=== PATIENT | male | born 1965 | race Caucasian/White ===

== ENCOUNTER 2022-09-08 12:35 | Inpatient (IN) | payer BC, OTHER ==
[2022-09-08] MEDS ORDERED: VANCOMYCIN IV PER PHARMACY 1 EACH MISC MISCELLANE PRN (13:17)
[2022-09-08] MEDS ORDERED: ACETAMINOPHEN TAB 325 MG TAB PO STA (13:17)
[2022-09-08] MEDS ORDERED: PIPERACILLIN-TAZOBACTAM 3.375 GM in SODIUM CHLORIDE 0.9% 100 ML IVPB STA (13:18)
--- NOTE | 2022-09-08 13:20 | ED ---
General Adult HPI - General Chief complaint: Skin/Abscess/Foreign Body Stated complaint: diabetic wounds Time Seen by Provider: 09/08/22 13:03 Source: patient, RN notes reviewed Mode of arrival: ambulatory Limitations: no limitations - History of Present Illness Initial comments: Patient is a pleasant 57-year-old male presenting to the emergency Department with foot ulcer. Onset was several days ago. Discomfort only with walking, none at this time at rest. 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 No fevers at home. Patient has noticed some redness streaking up from the ulcer in the right foot. - Related Data Allergies Allergy/AdvReac Type Severity Reaction Status Date / Time No Known Allergies Allergy Verified 09/08/22 12:50 Review of Systems ROS Statement: Those systems with pertinent positive or pertinent negative responses have been documented in the HPI. ROS Other: All systems not noted in ROS Statement are negative. Constitutional: Reports: as per HPI Eyes: Denies: eye pain ENT: Denies: ear pain Respiratory: Denies: cough Cardiovascular: Denies: chest pain Endocrine: Denies: fatigue Gastrointestinal: Denies: abdominal pain Genitourinary: Denies: urgency Past Medical History Past Medical History: Diabetes Mellitus, Hyperlipidemia, Hypertension History of Any Multi-Drug Resistant Organisms: MRSA Date of last positivie culture/infection: 04/25/2019 Past Surgical History: Tonsillectomy Additional Past Surgical History / Comment(s): BKA, Smoking Status: Never smoker Past Alcohol Use History: Occasional Past Drug Use History: None Reported General Exam Limitations: no limitations General appearance: alert, in no apparent distress Head exam: Present: normocephalic Eye exam: Present: normal appearance Neck exam: Present: normal inspection Respiratory exam: Present: normal lung sounds bilaterally Cardiovascular Exam: Present: tachycardia GI/Abdominal exam: Present: soft. Absent: tenderness Extremities exam: Present: other (Right plantar surface of the foot near the MCP with ulcer up to 4 x 5 cm with foul older and streaking up to the proximal foot. There is probable necrosis within the ulcer) Neurological exam: Present: alert Psychiatric exam: Present: normal affect, normal mood Skin exam: Present: erythema Course Vital Signs 09/08/22 12:45 Temperature 99 F Pulse Rate 104 H Respiratory 18 Rate Blood Pressure 129/74 O2 Sat by Pulse 98 Oximetry EKG Findings - EKG Results: EKG: interpreted by ERMD, sinus rhythm, normal axis, normal QRS, normal ST/T Medical Decision Making - Medical Decision Making Was pt. sent in by a medical professional or institution (, [facility], [facility], urgent care, hospital, or [facility]...) When possible be specific @ -Patient was sent from Dr. Jama office Did you speak to anyone other than the patient for history (EMS, parent, family, police, friend...)? What history was obtained from this source @ - is present and helps provide history including of previous ulcers and amputation Did you review nursing and triage notes (agree or disagree)? Why? @ -I reviewed and agree with nursing and triage notes Were old charts reviewed (outside hosp., previous admission, EMS record, old EKG, old radiological studies, urgent care reports/EKG's, [facility] records)? Report findings @ -No old charts were reviewed Differential Diagnosis (chest pain, altered mental status, abdominal pain women, abdominal pain men, vaginal bleeding, weakness, fever, dyspnea, syncope, headache, dizziness, GI bleed, back pain, seizure, CVA, palpatations, mental health)? @ -not applicable EKG interpreted by me (3pts min.). @ -As above X-rays interpreted by me (1pt min.). @ -Right foot x-ray shows no bony involvement. There is soft tissue change. CT interpreted by me (1pt min.). @ -None done U/S interpreted by me (1pt. min.). @ -None done What testing was considered but not performed or refused? (CT, X-rays, U/S, labs)? Why? @ -None What meds were considered but not given or refused? Why? @ -None Did you discuss the management of the patient with other professionals (professionals i.e. [facility] De La [facility], [facility], lab, RT, psych nurse, social work associate, fruit farmworker, teacher, industrial relations officer, case assembler)? Give summary @ -Case discussed with Dr. Coronel with [facility], who will admit covering Dr. Patel, who admits for Dr. Jama Was smoking cessation discussed for >3mins.? @ -No Was critical care preformed (if so, how long)? @ -No Were there social determinants of health that impacted care today? How? (Homelessness, low income, unemployed, alcoholism, drug addiction, transportation, low edu. Level, literacy, decrease access to med. care, [place] [facility], rehab)? @ -No Was there de-escalation of care discussed even if they declined (Discuss DNR or withdrawal of care, Hospice)? DNR status @ -No What co-morbidities impacted this encounter? (DM, HTN, Smoking, COPD, CAD, Cancer, CVA, ARF, Chemo, Hep., AIDS, mental health diagnosis, sleep apnea, morbid obesity)? @ -History of diabetes and previous ulcers and amputation Was patient admitted / discharged? Hospital course, mention meds given and route, prescriptions, significant lab abnormalities, going to OR and other pertinent info. @ -Patient will need to be admitted for IV antibiotics and consult with vascular and infectious disease. IV antibiotics have been started. Patient and family updated on plan. Undiagnosed new problem with uncertain prognosis? @ -No Drug Therapy requiring intensive monitoring for toxicity (Heparin, Nitro, Insulin, Cardizem)? @ -No Were any procedures done? @ -No Diagnosis/symptom? @ -Necrotic foot ulcer, diabetic Acute, or Chronic, or Acute on Chronic? @ -Acute Uncomplicated (without systemic symptoms) or Complicated (systemic symptoms)? @ -Complicated with localized cellulitis Side effects of treatment? @ -No Exacerbation, Progression, or Severe Exacerbation? @ -No Poses a threat to life or bodily function? How? (Chest pain, [place], [place], pneumonia, PE, COPD, DKA, ARF, appy, cholecystitis, CVA, Diverticulitis, Homicidal, Suicidal, threat to staff... and all critical care pts) @ -No Disposition Clinical Impression: Right foot ulcer, Cellulitis Disposition: ADMITTED IP TO THIS HOSP Condition: Serious Is patient prescribed a controlled substance at d/c from ED?: No Referrals: Adam Jama DO [Primary Care Provider] - 1-2 days Time of Disposition: 13:24
[2022-09-08] MEDS ORDERED: ACETAMINOPHEN TAB 325 MG TAB PO PRN (13:22)
[2022-09-08] MEDS ORDERED: NALOXONE 0.4 MG/ML 1 ML VIAL IV PRN (13:22)
--- NOTE | 2022-09-08 13:42 | XR ---
EXAMINATION TYPE: XR foot complete RT DATE OF EXAM: 09/08/2022 CLINICAL HISTORY: pain TECHNIQUE: Frontal, lateral and oblique images of the right foot are obtained. COMPARISON: None. FINDINGS: There is no acute fracture/dislocation evident. The joint spaces appear within normal ambrose its. The overlying soft tissue appears unremarkable. IMPRESSION: There is no acute fracture or dislocation. ICD 10 NO FRACTURE, INITIAL EVALUATION
[2022-09-08] MEDS ORDERED: VANCOMYCIN 2,250 MG in SODIUM CHLORIDE 0.9% 500 ML 500 ML IVPB ONE (14:00)
[2022-09-08] MEDS: SODIUM CHLORIDE 0.9% 1,000 ML IV SCH ×2 (14:06→22:24)
[2022-09-08 14:20] LABS: Basophils % (A) 0 %; Eosinophils # (A) 0.1 k/uL (0-0.7); Eosinophils % (A) 1 %; HCT 31.2 % (39.0-53.0); HGB 10.3 gm/dL (13.0-17.5); Lymphocytes # (A) 0.8 k/uL (1.0-4.8); Lymphocytes % (A) 8 %; MCH 29.6 pg (25.0-35.0); MCHC 33.1 g/dL (31.0-37.0); MCV 89.4 fL (80.0-100.0); Mean Platelet Volume 7.6; Monocytes # (A) 0.5 k/uL (0-1.0); Monocytes % (A) 5 %; Neutrophils # (A) 9.6 k/uL (1.3-7.7); Neutrophils % (A) 86 %; Platelet Count 293 k/uL (150-450); RBC 3.49 m/uL (4.30-5.90); RDW 13.7 % (11.5-15.5); WBC 11.1 k/uL (3.8-10.6)
[2022-09-08 14:29] LABS: Partial Thromboplastin Time 24.7 sec (22.0-30.0); Prothrombin Time 10.2 sec (9.0-12.0)
[2022-09-08 14:30] LABS: ALT 16 U/L (4-49); AST 21 U/L (17-59); African American GFR (CKD) >90 (>60 ml/min/1.73 sqM); Albumin 3.6 g/dL (3.5-5.0); Alkaline Phosphatase 89 U/L (38-126); Anion Gap 10 mmol/L; Blood Urea Nitrogen 14 mg/dL (9-20); Calcium 8.5 mg/dL (8.4-10.2); Carbon Dioxide 24 mmol/L (22-30); Chloride 103 mmol/L (98-107); Glucose 241 mg/dL (74-99); Non-African American GFR(CKD) 78 (>60 ml/min/1.73 sqM); Potassium 4.4 mmol/L (3.5-5.1); Sodium 137 mmol/L (137-145); Total Bilirubin 0.6 mg/dL (0.2-1.3); Total Protein 6.7 g/dL (6.3-8.2)
[2022-09-08] MEDS ORDERED: DEXTROSE 50% SYRINGE 50 ML IVP PRN ×2 (15:31)
--- NOTE | 2022-09-08 15:36 | P.HPIM ---
History of Present Illness H&P Date: 09/08/22 History of present illness; patient is a 57-year-old gentleman with past medical history significant for diabetes mellitus, hypertension presented to the ER because of right foot ulcer. Patient stated that she was all right one Z-Meir started noticing an ulcer on his right foot. Over the few days he started noticing foul-smelling discharge. There was no complain of fever or chills. No complaint of nausea and vomiting. Patient was complaining of pain in his right foot as well associated with redness going up his right foot. Patient has history of prior left BKA. Because of this right foot ulcer, Patient came to the ER. In the ER, patient was worked up, initial white count was 11.1, hemo globin 10.3, repeat blood count 93, sodium 137, potassium 4.4,. REVIEW OF SYSTEMS: CONSTITUTIONAL: No fever, no malaise, no fatigue. HEENT: No recent visual problems or hearing problems. Denied any sore throat. CARDIOVASCULAR: No chest pain, orthopnea, PND, no palpitations, no syncope. PULMONARY: No shortness of breath, no cough, no hemoptysis. GASTROINTESTINAL: No diarrhea, no nausea, no vomiting, no abdominal pain. NEUROLOGICAL: No headaches, no weakness, no numbness. HEMATOLOGICAL: Denies any bleeding or petechiae. GENITOURINARY: Denies any burning micturition, frequency, or urgency. MUSCULOSKELETAL/RHEUMATOLOGICAL: Denies any joint pain, swelling, or any muscle pain. ENDOCRINE: Denies any polyuria or polydipsia. The rest of the 14-point review of systems is negative. PHYSICAL EXAMINATION: GENERAL: The patient is alert and oriented x3, not in any acute distress. Well developed, well nourished. HEENT: Pupils are round and equally reacting to light. EOMI. No scleral icterus. No conjunctival pallor. Normocephalic, atraumatic. No pharyngeal erythema. No thyromegaly. CARDIOVASCULAR: S1 and S2 present. No murmurs, rubs, or gallops. PULMONARY: Chest is clear to auscultation, no wheezing or crackles. ABDOMEN: Soft, nontender, nondistended, normoactive bowel sounds. No palpable organomegaly. MUSCULOSKELETAL: No joint swelling or deformity. EXTREMITIES: Left BKA and right foot ulcer seen NEUROLOGICAL: Gross neurological examination did not reveal any focal deficits. SKIN: No rashes. Assessment and plan Right foot diabetic ulcer Diabetes mellitus Hypertension Plan; Monitor vital signs monitor CBC Monitor CMP Follow-up on Blood cultures Continue wound care Continue IV Zosyn and vancomycin Consult ID Consult vascular surgery Resume home meds Past Medical History Past Medical History: Diabetes Mellitus, Hyperlipidemia, Hypertension History of Any Multi-Drug Resistant Organisms: MRSA Date of last positivie culture/infection: 04/25/2019 Past Surgical History: Tonsillectomy Additional Past Surgical History / Comment(s): BKA, Smoking Status: Never smoker Past Alcohol Use History: Occasional Past Drug Use History: None Reported Medications and Allergies Home Medications Medication Instructions Recorded Confirmed Type Atorvastatin [Lipitor] 10 mg PO DAILY 09/08/22 09/08/22 History Magnesium Oxide [Magnesium] 500 mg PO HS 09/08/22 09/08/22 History Pioglitazone [Actos] 15 mg PO DAILY 09/08/22 09/08/22 History Semaglutide [Ozempic] 1 mg SQ WE 09/08/22 09/08/22 History lisinopriL [Zestril] 10 mg PO BID 09/08/22 09/08/22 History metFORMIN HCL 1,000 mg PO BID 09/08/22 09/08/22 History Allergies Allergy/AdvReac Type Severity Reaction Status Date / Time No Known Allergies Allergy Verified 09/08/22 14:24 Physical Exam Vitals: Vital Signs Temp Pulse Resp BP Pulse Ox 09/08/22 14:10 101.5 F H 09/08/22 12:45 99 F 104 H 18 129/74 98 Intake and Output 09/08/22 09/08/22 09/08/22 06:59 14:59 22:59 Other: Weight 113.398 kg Results CBC & Chem 7: 09/08/22 13:38 09/08/22 13:38 Labs: Abnormal Lab Results - Last 24 Hours (Table) 09/08/22 09/08/22 Range/Units 13:38 13:38 WBC 11.1 H (3.8-10.6) k/uL RBC 3.49 L (4.30-5.90) m/uL Hgb 10.3 L (13.0-17.5) gm/dL Hct 31.2 L (39.0-53.0) % Neutrophils # 9.6 H (1.3-7.7) k/uL Lymphocytes # 0.8 L (1.0-4.8) k/uL Glucose 241 H (74-99) mg/dL
[2022-09-08] MEDS ORDERED: COLLAGENASE 250 UNIT/GM OINTMENT 30 GM TUBE TOPICAL ONE (17:10)
--- NOTE | 2022-09-08 17:41 | P.GSCN ---
History of Present Illness History of present illness: D7-year-[age] gentleman well known to me from the past patient had wet gangrene of the left foot he had a left BK amputation done by me about 3 years ago his been coming to the office as a follow-up. Shouldn't noticed a ulcer on the plantar second aspect of the right foot he has a history of callus formation in the past got infected this is a foul odor smell noted involving the plantar aspect at the metatarsophalangeal joint the big toe is also involved with the redness on the plantar and dorsal suspect the measurement is 4 x 4 CM with necrotic tissue Medical history history of diabetes hypertension and high cholesterol Personal history no known ALLERGIES Surgical history patient had a left BK amputation done in the past 3 years ago His vital signs stable no fever or chills neck is supple no bruit appreciated Chest is clear good entry both lungs first and second sound present Abdomen is soft nontender Vascular femorals are 1+ PTDP not palpable patient has a infected callus with a blister formation noted on the plantar aspect of the right foot at metatarsophalangeal joint foul odor pus noted Patient is on Zosyn and vancomycin ID consult has been obtained Plan is nothing by mouth midnight consent for right foot wound debridement possible right big toe amputation risk and complication discussed we'll arrange for surgery tomorrow Past Medical History Past Medical History: Diabetes Mellitus, Hyperlipidemia, Hypertension History of Any Multi-Drug Resistant Organisms: MRSA Year Discovered:: 04/25/2019 Past Surgical History: Tonsillectomy Additional Past Surgical History / Comment(s): BKA, Smoking Status: Never smoker Past Alcohol Use History: Occasional Past Drug Use History: None Reported Medications and Allergies Home Medications Medication Instructions Recorded Confirmed Type Atorvastatin [Lipitor] 10 mg PO DAILY 09/08/22 09/08/22 History Magnesium Oxide [Magnesium] 500 mg PO HS 09/08/22 09/08/22 History Pioglitazone [Actos] 15 mg PO DAILY 09/08/22 09/08/22 History Semaglutide [Ozempic] 1 mg SQ WE 09/08/22 09/08/22 History lisinopriL [Zestril] 10 mg PO BID 09/08/22 09/08/22 History metFORMIN HCL 1,000 mg PO BID 09/08/22 09/08/22 History Allergies Allergy/AdvReac Type Severity Reaction Status Date / Time No Known Allergies Allergy Verified 09/08/22 14:24 Surgical - Exam Vital Signs Temp Pulse Resp BP Pulse Ox 99 F 104 H 18 129/74 98 09/08/22 12:45 09/08/22 12:45 09/08/22 12:45 09/08/22 12:45 09/08/22 12:45 Results - Labs 09/08/22 13:38 09/08/22 13:38 Abnormal Lab Results - Last 24 Hours (Table) 09/08/22 09/08/22 Range/Units 13:38 13:38 WBC 11.1 H (3.8-10.6) k/uL RBC 3.49 L (4.30-5.90) m/uL Hgb 10.3 L (13.0-17.5) gm/dL Hct 31.2 L (39.0-53.0) % Neutrophils # 9.6 H (1.3-7.7) k/uL Lymphocytes # 0.8 L (1.0-4.8) k/uL Glucose 241 H (74-99) mg/dL Diabetes panel 09/08/22 Range/Units 13:38 Sodium 137 (137-145) mmol/L Potassium 4.4 (3.5-5.1) mmol/L Chloride 103 (98-107) mmol/L Carbon Dioxide 24 (22-30) mmol/L BUN 14 (9-20) mg/dL Creatinine 1.05 (0.66-1.25) mg/dL Glucose 241 H (74-99) mg/dL Calcium 8.5 (8.4-10.2) mg/dL AST 21 (17-59) U/L ALT 16 (4-49) U/L Alkaline Phosphatase 89 (38-126) U/L Total Protein 6.7 (6.3-8.2) g/dL Albumin 3.6 (3.5-5.0) g/dL Calcium panel 09/08/22 Range/Units 13:38 Calcium 8.5 (8.4-10.2) mg/dL Albumin 3.6 (3.5-5.0) g/dL Pituitary panel 09/08/22 Range/Units 13:38 Sodium 137 (137-145) mmol/L Potassium 4.4 (3.5-5.1) mmol/L Chloride 103 (98-107) mmol/L Carbon Dioxide 24 (22-30) mmol/L BUN 14 (9-20) mg/dL Creatinine 1.05 (0.66-1.25) mg/dL Glucose 241 H (74-99) mg/dL Calcium 8.5 (8.4-10.2) mg/dL Adrenal panel 09/08/22 Range/Units 13:38 Sodium 137 (137-145) mmol/L Potassium 4.4 (3.5-5.1) mmol/L Chloride 103 (98-107) mmol/L Carbon Dioxide 24 (22-30) mmol/L BUN 14 (9-20) mg/dL Creatinine 1.05 (0.66-1.25) mg/dL Glucose 241 H (74-99) mg/dL Calcium 8.5 (8.4-10.2) mg/dL Total Bilirubin 0.6 (0.2-1.3) mg/dL AST 21 (17-59) U/L ALT 16 (4-49) U/L Alkaline Phosphatase 89 (38-126) U/L Total Protein 6.7 (6.3-8.2) g/dL Albumin 3.6 (3.5-5.0) g/dL
[2022-09-08 17:59] LABS: Glucose,Whole Blood 170 mg/dL (70-110)
[2022-09-08] MEDS: INSULIN ASPART (NovoLOG) 100 UNIT/ML VIAL SQ SCH ×2 (18:04→21:21)
[2022-09-08 21:20] LABS: Glucose,Whole Blood 143 mg/dL (70-110)
[2022-09-08] MEDS: metFORMIN 500 MG TAB PO SCH (21:36)
[2022-09-08] MEDS: lisinopriL 10 MG TAB PO SCH (21:36)
[2022-09-09] MEDS: VANCOMYCIN 2,000 MG in SODIUM CHLORIDE 0.9% 500 ML 500 ML IVPB SCH ×2 (03:27→15:40)
[2022-09-09] MEDS: SODIUM CHLORIDE 0.9% 1,000 ML IV SCH ×2 (06:02→15:40)
[2022-09-09 07:12] LABS: Glucose,Whole Blood 136 mg/dL (70-110)
[2022-09-09] MEDS: PIOGLITAZONE 15 MG TAB PO SCH (07:24)
[2022-09-09] MEDS: metFORMIN 500 MG TAB PO SCH ×2 (07:24→22:15)
[2022-09-09] MEDS: INSULIN ASPART (NovoLOG) 100 UNIT/ML VIAL SQ SCH ×4 (07:24→22:14)
[2022-09-09 09:29] LABS: Basophils # (A) 0.03 X 10*3/uL (0.00-0.10); Basophils % (A) 0.3 %; Eosinophils # (A) 0.06 X 10*3/uL (0.04-0.35); Eosinophils % (A) 0.6 %; HCT 29.7 % (39.6-50.0); HGB 9.4 g/dL (13.0-17.0); Immature Grans, Automated 0.4 %; Lymphocytes # (A) 1.32 X 10*3/uL (0.90-5.00); Lymphocytes % (A) 12.4 %; MCH 28.9 pg (27.0-32.0); MCHC 31.6 g/dL (32.0-37.0); MCV 91.4 fL (80.0-97.0); Mean Platelet Volume 10.7 fL (9.5-12.2); Monocytes # (A) 0.74 X 10*3/uL (0.20-1.00); NRBC Per 100 WBC 0 /100 WBCS (0.0-0.0); Neutrophils # (A) 8.44 X 10*3/uL (1.80-7.70); Neutrophils % (A) 79.3 %; Platelet Count 277 X 10*3/uL (140-440); RBC 3.25 X 10*6/uL (4.40-5.60); RDW 14.3 % (11.5-14.5); WBC 10.63 X 10*3/uL (4.50-10.00)
[2022-09-09 09:46] LABS: African American GFR (CKD) 95.7 (60.0-200.0); Albumin 3.4 g/dL (3.8-4.9); Albumin/Globulin Ratio 1.26 (1.60-3.17); Anion Gap 9.1 mmol/L (10.00-18.00); BUN/Creat Ratio 10.9 Ratio (12.00-20.00); Blood Urea Nitrogen 10.9 mg/dL (9.0-27.0); Calcium 8.3 mg/dL (8.7-10.3); Carbon Dioxide 20.9 mmol/L (20.0-27.5); Globulin 2.7 g/dL (1.6-3.3); Non-African American GFR(CKD) 82.6 (60.0-200.0); Total Bilirubin 0.5 mg/dL (0.30-1.20); Total Protein 6.1 g/dL (6.2-8.2)
[2022-09-09] MEDS: lisinopriL 10 MG TAB PO SCH ×2 (10:13→22:15)
[2022-09-09] MEDS: ATORVASTATIN 10 MG TAB PO SCH (10:13)
[2022-09-09 12:12] LABS: Glucose,Whole Blood 120 mg/dL (70-110)
[2022-09-09] MEDS ORDERED: ONDANSETRON 4 MG/2 ML VIAL ONE (13:25)
[2022-09-09 13:37] VITALS: BMI 32.1
[2022-09-09] MEDS ORDERED: LACTATED RINGERS 1,000 ML IV ONE (13:54)
[2022-09-09 13:55] LABS: Glucose,Whole Blood 118 mg/dL (70-110)
[2022-09-09] MEDS ORDERED: ONDANSETRON 4 MG/2 ML VIAL IVP ONE (13:55)
[2022-09-09] MEDS ORDERED: PROPOFOL 10 MG/ML 20 ML VIAL IV ONE (14:01)
[2022-09-09] MEDS ORDERED: LIDOCAINE 2% INJ 20 MG/ML (2 ML VIAL) ONE (14:01)
[2022-09-09] MEDS ORDERED: SUCCINYLCHOLINE CHLORIDE 200 MG/10 ML VIAL IV ONE (14:01)
[2022-09-09] MEDS ORDERED: fentaNYL (PF) 50 MCG/ML 2 ML AMP ONE (14:01)
[2022-09-09] MEDS ORDERED: MIDAZOLAM 2 MG/2 ML VIAL ONE (14:01)
[2022-09-09] MEDS ORDERED: SODIUM CHLORIDE 0.9% 50 ML with ceFAZolin 2,000 MG IV ONE ×2 (14:13)
--- NOTE | 2022-09-09 14:24 | P.PN ---
Subjective Progress Note Date: 09/09/22 patient is a 57-year-old gentleman with past medical history significant for diabetes mellitus, hypertension presented to the ER because of right foot ulcer. Patient stated that she was all right one Z-Meir started noticing an ulcer on his right foot. Over the few days he started noticing foul-smelling discharge. There was no complain of fever or chills. No complaint of nausea and vomiting. Patient was complaining of pain in his right foot as well associated with redness going up his right foot. Patient has history of prior left BKA. Because of this right foot ulcer, Patient came to the ER. In the ER, patient was worked up, initial white count was 11.1, hemoglobin 10.3, repeat blood count 93, sodium 137, potassium 4.4,. 09/09. Patient seen and examined. States he feels better than yesterday. Currently going for surgery for right foot debridement REVIEW OF SYSTEMS: CONSTITUTIONAL: No fever, no malaise,. CARDIOVASCULAR: No chest pain, no palpitations, no syncope. PULMONARY: No shortness of breath, no cough, GASTROINTESTINAL: No diarrhea, no nausea, no vomiting, no abdominal pain. NEUROLOGICAL: No headaches, no weakness, PHYSICAL EXAMINATION: GENERAL: The patient is alert and oriented x3, not in any acute distress. Well developed, well nourished. HEENT: Pupils are round and equally reacting to light. EOMI. No scleral icterus. No conjunctival pallor. Normocephalic, atraumatic. No pharyngeal erythema. No thyromegaly. CARDIOVASCULAR: S1 and S2 present. No murmurs, rubs, or gallops. PULMONARY: Chest is clear to auscultation, no wheezing or crackles. ABDOMEN: Soft, nontender, nondistended, normoactive bowel sounds. No palpable organomegaly. MUSCULOSKELETAL: No joint swelling or deformity. EXTREMITIES: Right foot ulcer on the plantar aspect below the big toe seen, left BKA NEUROLOGICAL: Gross neurological examination did not reveal any focal deficits. SKIN: No rashes. Assessment and plan Right foot diabetic ulcer Diabetes mellitus Hypertension Plan Monitor vital signs Monitor CBC Monitor CMP Continue telemetry monitoring Follow-up on blood cultures Continue pain management Continue IV fluids Continue IV Zosyn and vancomycin Follow-up in ID recs Follow-up on surgery recommendations, patient going for right foot debridement today DVT prophylaxis: Objective - Vital Signs Vital signs: Vital Signs Temp 98.9 F 09/09/22 13:52 Pulse 90 09/09/22 13:52 Resp 16 09/09/22 13:52 BP 135/73 09/09/22 13:52 Pulse Ox 98 09/09/22 13:52 FiO2 Intake & Output 09/08/22 09/09/22 09/09/22 18:59 06:59 18:59 Intake Total 1700 50 Balance 1700 50 Weight 113.398 kg 113.398 kg 113.398 kg Intake: IV 50 Intake, IV Titration 1700 Amount Sodium Chloride 0.9% 1, 1200 000 ml @ 130 mls/hr IV . [id number] [facility] Rx#:[id number] Vancomycin 2,250 mg In 500 Sodium Chloride 0.9% 500 ml 500 ml @ 167 mls/hr IVPB ONCE ONE Rx#: [id number] Other: Voiding Method Bedside Commode Bedside Commode Urinal Urinal # Voids 2 # Bowel Movements 3 1 - Labs CBC & Chem 7: 09/09/22 06:02 09/09/22 06:02 Labs: Abnormal Lab Results - Last 24 Hours (Table) 09/08/22 09/08/22 09/08/22 Range/Units 13:38 13:38 17:56 WBC (4.50-10.00) X 10*3/uL RBC (4.40-5.60) X 10*6/uL Hgb (13.0-17.0) g/dL Hct (39.6-50.0) % MCHC (32.0-37.0) g/dL Neutrophils # (1.80-7.70) X 10*3/uL Anion Gap (10.00-18.00) mmol/L BUN/Creatinine Ratio (12.00-20.00) Ratio Glucose 241 H (74-99) mg/dL POC Glucose (mg/dL) 170 H (70-110) mg/dL Hemoglobin A1c 6.6 H (0.0-6.0) % Calcium (8.7-10.3) mg/dL AST (14-35) U/L Total Protein (6.2-8.2) g/dL Albumin (3.8-4.9) g/dL Albumin/Globulin Ratio (1.60-3.17) g/dL 09/08/22 09/09/22 09/09/22 Range/Units 20:46 06:02 06:02 WBC 10.63 H (4.50-10.00) X 10*3/uL RBC 3.25 L (4.40-5.60) X 10*6/uL Hgb 9.4 L (13.0-17.0) g/dL Hct 29.7 L (39.6-50.0) % MCHC 31.6 L (32.0-37.0) g/dL Neutrophils # 8.44 H (1.80-7.70) X 10*3/uL Anion Gap 9.10 L (10.00-18.00) mmol/L BUN/Creatinine Ratio 10.90 L (12.00-20.00) Ratio Glucose 137 H (74-99) mg/dL POC Glucose (mg/dL) 143 H (70-110) mg/dL Hemoglobin A1c (0.0-6.0) % Calcium 8.3 L (8.7-10.3) mg/dL AST 13 L (14-35) U/L Total Protein 6.1 L (6.2-8.2) g/dL Albumin 3.4 L (3.8-4.9) g/dL Albumin/Globulin Ratio 1.26 L (1.60-3.17) g/dL 09/09/22 09/09/22 09/09/22 Range/Units 07:01 12:10 13:53 WBC (4.50-10.00) X 10*3/uL RBC (4.40-5.60) X 10*6/uL Hgb (13.0-17.0) g/dL Hct (39.6-50.0) % MCHC (32.0-37.0) g/dL Neutrophils # (1.80-7.70) X 10*3/uL Anion Gap (10.00-18.00) mmol/L BUN/Creatinine Ratio (12.00-20.00) Ratio Glucose (74-99) mg/dL POC Glucose (mg/dL) 136 H 120 H 118 H (70-110) mg/dL Hemoglobin A1c (0.0-6.0) % Calcium (8.7-10.3) mg/dL AST (14-35) U/L Total Protein (6.2-8.2) g/dL Albumin (3.8-4.9) g/dL Albumin/Globulin Ratio (1.60-3.17) g/dL
--- NOTE | 2022-09-09 15:26 | P.PCN ---
Description of Procedure: Preoperative diagnoses infected callus plantar aspect the foot at the metacarpophalangeal joint with redness and followed or smell measurement is 4 x 4 cm postop the same involving the metatarsophalangeal joint and also tendon on the plantar and SPECT of the foot involving the big toe Procedure amputation of the big toe involving the metatarsophalangeal joint and also involving the tendons on the plantar aspect of the big toe Patient brought to the operating room under general anesthesia right foot was prepped and draped applied sterile manner incision was made elliptical on the dorsal suspect of the foot deepened through skin fat and fascia and incision was extended to the plantar aspect including the infected callus on the plantar plantar aspect involving the metatarsophalangeal joint with the skin fat and fascia tendon were divided on the plantar aspect of the big toe there was pocket of pus noted which was also drained. The digital vessel was visualized suture ligated and then the tendon on the dorsal suspect of the foot was also divided since the metatarsophalangeal joint was also infected and of the metatarsal bone was removed with an electric saw. The cement was removed which was sent for deep culture hemostasis were well controlled. Wound was copiously irrigated with hydrogen peroxide and saline wound was kept open Santyl cream was applied to the wound and pressure dressing applied blood loss was minimal patient transferred to the recovery room in satisfactory condition we will change her dressing tomorrow with Santyl cream patient may need a VAC therapy also
[2022-09-09 17:26] LABS: Glucose,Whole Blood 145 mg/dL (70-110)
[2022-09-09 20:29] LABS: Glucose,Whole Blood 165 mg/dL (70-110)
[2022-09-09] MEDS ORDERED: PIPERACILLIN-TAZOBACTAM 3.375 GM in SODIUM CHLORIDE 0.9% 100 ML IVPB SCH (22:00)
--- NOTE | 2022-09-09 22:50 | P.CONS ---
History of Present Illness - Reason for Consult Consult date: 09/09/22 - History of Present Illness Patient is a 57-year-old male with a past medical history significant for diabetes mellitus hypertension hyperlipidemia previous history of left diabetic foot infection requiring left below the knee potation patient presented to the hospital yesterday afternoon for evaluation of right foot ulcer with the patient is attributing to an infected insult patient has been complaining of di scomfort only with walking but not at rest did have some discoloration to the affected area but denies any foul-smelling drainage also noticed to having redness streaking up from the ulcer to the right foot patient did have underlying diabetic neuropathy continued significant pain associated with pa saul was evaluated by his primary care physician and started patient to go to the hospital on arrival to the ER the patient did have a fever of 101.5 F patient did have vital of 11.1 with a left shift kidney function has been normal liver enzymes are normal blood cultures were obtained currently pending patient was started on vancomycin and Zosyn infectious disease was consulted for further management of antibiotic therapy 2 Past Medical History Past Medical History: Diabetes Mellitus, Hyperlipidemia, Hypertension History of Any Multi-Drug Resistant Organisms: MRSA Year Discovered:: 04/25/2019 MDRO Source:: MRSA Past Surgical History: Tonsillectomy Additional Past Surgical History / Comment(s): BKA -2019 Past Anesthesia/Blood Transfusion Reactions: No Reported Reaction Past Psychological History: No Psychological Hx Reported Smoking Status: Never smoker Past Alcohol Use History: Occasional Past Drug Use History: None Reported Medications and Allergies Home Medications Medication Instructions Recorded Confirmed Type Atorvastatin [Lipitor] 10 mg PO DAILY 09/08/22 09/08/22 History Magnesium Oxide [Magnesium] 500 mg PO HS 09/08/22 09/08/22 History Pioglitazone [Actos] 15 mg PO DAILY 09/08/22 09/08/22 History Semaglutide [Ozempic] 1 mg SQ WE 09/08/22 09/08/22 History lisinopriL [Zestril] 10 mg PO BID 09/08/22 09/08/22 History metFORMIN HCL 1,000 mg PO BID 09/08/22 09/08/22 History Allergies Allergy/AdvReac Type Severity Reaction Status Date / Time No Known Allergies Allergy Verified 09/08/22 14:24 Physical Exam Vitals: Vital Signs Temp Pulse Pulse Resp BP BP BP 09/09/22 10:01 89 132/75 09/09/22 07:15 98.5 F 95 15 115/68 09/09/22 04:22 99.2 F 92 16 123/73 09/08/22 20:00 16 09/08/22 19:39 99 F 91 18 143/80 09/08/22 18:08 88 18 131/82 09/08/22 17:57 97.5 F L 09/08/22 16:12 100.7 F H 09/08/22 14:10 101.5 F H 09/08/22 12:45 99 F 104 H 18 129/74 Pulse Ox 09/09/22 10:01 09/09/22 07:15 100 09/09/22 04:22 97 09/08/22 20:00 09/08/22 19:39 97 09/08/22 18:08 98 09/08/22 17:57 09/08/22 16:12 09/08/22 14:10 09/08/22 12:45 98 Intake and Output 09/08/22 09/09/22 09/09/22 22:59 06:59 14:59 Intake Total 1700 Balance 1700 Intake: Intake, IV Titration 1700 Amount Sodium Chloride 0.9% 1, 1200 000 ml @ 130 mls/hr IV . Q7H42M [facility] Rx#:[id number] Vancomycin 2,250 mg In 500 Sodium Chloride 0.9% 500 ml 500 ml @ 167 mls/hr IVPB ONCE ONE Rx#: [id number] Other: Voiding Method Bedside Commode Bedside Commode Urinal Urinal # Voids 2 # Bowel Movements 3 Weight 113.398 kg Results CBC & Chem 7: 09/09/22 06:02 09/09/22 06:02 Labs: Abnormal Lab Results - Last 24 Hours (Table) 09/08/22 09/08/22 09/08/22 Range/Units 13:38 13:38 13:38 WBC 11.1 H (3.8-10.6) k/uL RBC 3.49 L (4.30-5.90) m/uL Hgb 10.3 L (13.0-17.5) gm/dL Hct 31.2 L (39.0-53.0) % MCHC (32.0-37.0) g/dL Neutrophils # 9.6 H (1.3-7.7) k/uL Lymphocytes # 0.8 L (1.0-4.8) k/uL Anion Gap (10.00-18.00) mmol/L BUN/Creatinine Ratio (12.00-20.00) Ratio Glucose 241 H (74-99) mg/dL POC Glucose (mg/dL) (70-110) mg/dL Hemoglobin A1c 6.6 H (0.0-6.0) % Calcium (8.7-10.3) mg/dL AST (14-35) U/L Total Protein (6.2-8.2) g/dL Albumin (3.8-4.9) g/dL Albumin/Globulin Ratio (1.60-3.17) g/dL 09/08/22 09/08/22 09/09/22 Range/Units 17:56 20:46 06:02 WBC 10.63 H (3.8-10.6) k/uL RBC 3.25 L (4.30-5.90) m/uL Hgb 9.4 L (13.0-17.5) gm/dL Hct 29.7 L (39.0-53.0) % MCHC 31.6 L (32.0-37.0) g/dL Neutrophils # 8.44 H (1.3-7.7) k/uL Lymphocytes # (1.0-4.8) k/uL Anion Gap (10.00-18.00) mmol/L BUN/Creatinine Ratio (12.00-20.00) Ratio Glucose (74-99) mg/dL POC Glucose (mg/dL) 170 H 143 H (70-110) mg/dL Hemoglobin A1c (0.0-6.0) % Calcium (8.7-10.3) mg/dL AST (14-35) U/L Total Protein (6.2-8.2) g/dL Albumin (3.8-4.9) g/dL Albumin/Globulin Ratio (1.60-3.17) g/dL 09/09/22 09/09/22 Range/Units 06:02 07:01 WBC (3.8-10.6) k/uL RBC (4.30-5.90) m/uL Hgb (13.0-17.5) gm/dL Hct (39.0-53.0) % MCHC (32.0-37.0) g/dL Neutrophils # (1.3-7.7) k/uL Lymphocytes # (1.0-4.8) k/uL Anion Gap 9.10 L (10.00-18.00) mmol/L BUN/Creatinine Ratio 10.90 L (12.00-20.00) Ratio Glucose 137 H (74-99) mg/dL POC Glucose (mg/dL) 136 H (70-110) mg/dL Hemoglobin A1c (0.0-6.0) % Calcium 8.3 L (8.7-10.3) mg/dL AST 13 L (14-35) U/L Total Protein 6.1 L (6.2-8.2) g/dL Albumin 3.4 L (3.8-4.9) g/dL Albumin/Globulin Ratio 1.26 L (1.60-3.17) g/dL Assessment and Plan Plan: 1patient presented to hospital with sepsis in this patient who did have a fever elevated white count source is right diabetic foot infection in this patient who did have a necrotic ulcer on the plantar aspect of the right foot will need to call for the polymicrobial estefania usually associated with this diabetic foot infection 2-continue with the vancomycin however switch Zosyn to Unasyn to decrease the risk of nephrotoxicity 3-await surgical debridement and deep culture 4-check inflammatory markers We will follow on clinical condition and cultures to further adjust medication if needed Thank you for this consultation we will follow the patient along with you Time with Patient: Greater than 30
[2022-09-10] MEDS: AMPICILLIN-SULBACTAM 3 GM in SODIUM CHLORIDE 0.9% 100 ML IVPB SCH ×4 (02:11→18:33)
[2022-09-10] MEDS: SODIUM CHLORIDE 0.9% 1,000 ML IV SCH ×3 (03:09→13:27)
[2022-09-10] MEDS: VANCOMYCIN 2,000 MG in SODIUM CHLORIDE 0.9% 500 ML 500 ML IVPB SCH ×2 (03:25→15:31)
[2022-09-10 07:22] LABS: Glucose,Whole Blood 105 mg/dL (70-110)
[2022-09-10] MEDS: INSULIN ASPART (NovoLOG) 100 UNIT/ML VIAL SQ SCH ×4 (07:45→20:28)
[2022-09-10 08:57] LABS: Basophils # (A) 0.03 X 10*3/uL (0.00-0.10); Basophils % (A) 0.3 %; Eosinophils # (A) 0.11 X 10*3/uL (0.04-0.35); Eosinophils % (A) 1.2 %; HCT 28.7 % (39.6-50.0); HGB 8.9 g/dL (13.0-17.0); Immature Grans, Automated 0.4 %; Lymphocytes # (A) 1.54 X 10*3/uL (0.90-5.00); Lymphocytes % (A) 16.3 %; MCV 93.5 fL (80.0-97.0); Mean Platelet Volume 10.2 fL (9.5-12.2); Monocytes # (A) 0.53 X 10*3/uL (0.20-1.00); Monocytes % (A) 5.6 %; NRBC Per 100 WBC 0 /100 WBCS (0.0-0.0); Neutrophils # (A) 7.21 X 10*3/uL (1.80-7.70); Neutrophils % (A) 76.2 %; Platelet Count 309 X 10*3/uL (140-440); RBC 3.07 X 10*6/uL (4.40-5.60); RDW 14.4 % (11.5-14.5); WBC 9.46 X 10*3/uL (4.50-10.00)
[2022-09-10 11:05] LABS: African American GFR (CKD) 86.3 (60.0-200.0); Anion Gap 9.8 mmol/L (10.00-18.00); BUN/Creat Ratio 7.8 Ratio (12.00-20.00); Blood Urea Nitrogen 8.5 mg/dL (9.0-27.0); C Reactive Protein 12.2 mg/dL (0.00-0.80); Carbon Dioxide 21.2 mmol/L (20.0-27.5); Non-African American GFR(CKD) 74.4 (60.0-200.0); Potassium 4.1 mmol/L (3.5-5.5)
[2022-09-10 11:26] LABS: Glucose,Whole Blood 170 mg/dL (70-110)
[2022-09-10] MEDS: PIOGLITAZONE 15 MG TAB PO SCH (12:47)
[2022-09-10] MEDS: lisinopriL 10 MG TAB PO SCH ×2 (12:47→20:32)
[2022-09-10] MEDS: metFORMIN 500 MG TAB PO SCH ×2 (12:47→20:32)
[2022-09-10] MEDS: ATORVASTATIN 10 MG TAB PO SCH (12:53)
--- NOTE | 2022-09-10 12:53 | P.PN ---
Subjective Progress Note Date: 09/10/22 patient is a 57-year-old gentleman with past medical history significant for diabetes mellitus, hypertension presented to the ER because of right foot ulcer. Patient stated that she was all right one Z-Meir started noticing an ulcer on his right foot. Over the few days he started noticing foul-smelling discharge. There was no complain of fever or chills. No complaint of nausea and vomiting. Patient was complaining of pain in his right foot as well associated with redness going up his right foot. Patient has history of prior left BKA. Because of this right foot ulcer, Patient came to the ER. In the ER, patient was worked up, initial white count was 11.1, hemoglobin 10.3, repeat blood count 93, sodium 137, potassium 4.4,. 09/09. Patient seen and examined. States he feels better than yesterday. Currently going for surgery for right foot debridement 09/01. Patient seen and examined. Patient underwent amputation of the big toe involving the metatarsophalangeal joint and also involving the tendons on the plantar aspect of the big toe. Currently states pain is under control. Denies any lightheadedness or dizziness. Vital signs stable REVIEW OF SYSTEMS: CONSTITUTIONAL: No fever, no malaise,. CARDIOVASCULAR: No chest pain, no palpitations, no syncope. PULMONARY: No shortness of breath, no cough, GASTROINTESTINAL: No diarrhea, no nausea, no vomiting, no abdominal pain. NEUROLOGICAL: No headaches, no weakness, PHYSICAL EXAMINATION: GENERAL: The patient is alert and oriented x3, not in any acute distress. Well developed, well nourished. HEENT: Pupils are round and equally reacting to light. EOMI. No scleral icterus. No conjunctival pallor. Normocephalic, atraumatic. No pharyngeal erythema. No thyromegaly. CARDIOVASCULAR: S1 and S2 present. No murmurs, rubs, or gallops. PULMONARY: Chest is clear to auscultation, no wheezing or crackles. ABDOMEN: Soft, nontender, nondistended, normoactive bowel sounds. No palpable organomegaly. MUSCULOSKELETAL: No joint swelling or deformity. EXTREMITIES: Right foot bandaged seen, left BKA NEUROLOGICAL: Gross neurological examination did not reveal any focal deficits. SKIN: No rashes. Assessment and plan Right foot diabetic ulcer Diabetes mellitus Hypertension Plan Monitor vital signs Monitor CBC Monitor CMP Continue telemetry monitoring Follow-up on blood cultures Wound cultures Continue pain management DC IV fluids Continue IV Unasyn and vancomycin Follow-up in ID recs Status post amputation of the big toe involving the metatarsophalangeal joint and also involving the tendons on the plantar aspect of the big toe Follow-up on surgery recommendations, DVT prophylaxis: Objective - Vital Signs Vital signs: Vital Signs Temp 97.8 F 09/10/22 08:10 Pulse 87 09/10/22 12:41 Resp 16 09/10/22 08:10 BP 143/76 09/10/22 12:41 Pulse Ox 95 09/10/22 08:10 FiO2 Intake & Output 09/09/22 09/10/22 09/10/22 18:59 06:59 18:59 Intake Total 625 500 Output Total 15 675 Balance 610 500 -675 Weight 113.398 kg Intake: IV 625 Oral 500 Output: Urine 675 Estimated Blood Loss 15 Other: Voiding Method Bedside Commode Bedside Commode Urinal Urinal # Voids 2 1 1 # Bowel Movements 1 - Labs CBC & Chem 7: 09/10/22 07:02 09/10/22 07:02 Labs: Abnormal Lab Results - Last 24 Hours (Table) 09/09/22 09/09/22 09/09/22 Range/Units 13:53 17:24 20:26 RBC (4.40-5.60) X 10*6/uL Hgb (13.0-17.0) g/dL Hct (39.6-50.0) % MCHC (32.0-37.0) g/dL Anion Gap (10.00-18.00) mmol/L BUN (9.0-27.0) mg/dL BUN/Creatinine Ratio (12.00-20.00) Ratio Glucose (70-110) mg/dL POC Glucose (mg/dL) 118 H 145 H 165 H (70-110) mg/dL Calcium (8.7-10.3) mg/dL C-Reactive Protein (0.00-0.80) mg/dL 09/10/22 09/10/22 09/10/22 Range/Units 07:02 07:02 11:24 RBC 3.07 L (4.40-5.60) X 10*6/uL Hgb 8.9 L (13.0-17.0) g/dL Hct 28.7 L (39.6-50.0) % MCHC 31.0 L (32.0-37.0) g/dL Anion Gap 9.80 L (10.00-18.00) mmol/L BUN 8.5 L (9.0-27.0) mg/dL BUN/Creatinine Ratio 7.80 L (12.00-20.00) Ratio Glucose 117 H (70-110) mg/dL POC Glucose (mg/dL) 170 H (70-110) mg/dL Calcium 8.0 L (8.7-10.3) mg/dL C-Reactive Protein 12.20 H (0.00-0.80) mg/dL Microbiology - Last 24 Hours (Table) 09/08/22 13:38 Blood Culture Gram Stain - Preliminary Blood Blood Culture - Preliminary Staphylococcus epidermidis 09/09/22 14:36 Gram Stain - Preliminary Foot - Right Wound Culture - Preliminary 09/09/22 14:36 Anaerobic Culture - Preliminary Foot - Right 09/08/22 13:38 Blood Culture - Final Blood 09/08/22 13:35 Blood Culture - Preliminary Blood No Growth after 24 hours
[2022-09-10 14:50] LABS: Erythrocyte Sedimentation Rate 89 mm/Hr (0-20)
--- NOTE | 2022-09-10 15:02 | P.PN ---
Subjective Progress Note Date: 09/10/22 Principal diagnosis: Right diabetic foot infection Patient is a 57-year-old male with a past medical history significant for diabetes mellitus hypertension hyperlipidemia previous history of left diabetic foot infection requiring left below the knee potation patient presented to the hospital with right foot plantar ulcer, patient was taken to the OR and status post amputation of the right big toe involving the metatarsophalangeal joint and also one of the tendons on the plantar aspect of the right big toe procedure completed on 09/09/2022. on today's evaluation, that is 09/10/2022, the patient denies having any fever or any chills, patient denies having any chest pain or shortness of cough no abdominal pain or any worsening pain to the right foot area Objective - Vital Signs Vital signs: Vital Signs Temp 97.8 F 09/10/22 08:10 Pulse 87 09/10/22 12:41 Resp 16 09/10/22 08:10 BP 143/76 09/10/22 12:41 Pulse Ox 95 09/10/22 08:10 FiO2 Intake & Output 09/09/22 09/10/22 09/10/22 18:59 06:59 18:59 Intake Total 625 500 Output Total 15 675 Balance 610 500 -675 Weight 113.398 kg Intake: IV 625 Oral 500 Output: Urine 675 Estimated Blood Loss 15 Other: Voiding Method Bedside Commode Bedside Commode Urinal Urinal # Voids 2 1 1 # Bowel Movements 1 - Exam GENERAL DESCRIPTION: A middle-aged male lying in bed in no distress RESPIRATORY SYSTEM: Unlabored breathing , decreased breath sounds at bases HEART: S1 S2 regular rate and rhythm , ABDOMEN: Soft , no tenderness EXTREMITIES: Right foot is currently dressed no drainage on the dressing - Labs CBC & Chem 7: 09/10/22 07:02 09/10/22 07:02 Labs: Abnormal Lab Results - Last 24 Hours (Table) 09/09/22 09/09/22 09/09/22 Range/Units 13:53 17:24 20:26 RBC (4.40-5.60) X 10*6/uL Hgb (13.0-17.0) g/dL Hct (39.6-50.0) % MCHC (32.0-37.0) g/dL Anion Gap (10.00-18.00) mmol/L BUN (9.0-27.0) mg/dL BUN/Creatinine Ratio (12.00-20.00) Ratio Glucose (70-110) mg/dL POC Glucose (mg/dL) 118 H 145 H 165 H (70-110) mg/dL Calcium (8.7-10.3) mg/dL C-Reactive Protein (0.00-0.80) mg/dL 09/10/22 09/10/22 09/10/22 Range/Units 07:02 07:02 11:24 RBC 3.07 L (4.40-5.60) X 10*6/uL Hgb 8.9 L (13.0-17.0) g/dL Hct 28.7 L (39.6-50.0) % MCHC 31.0 L (32.0-37.0) g/dL Anion Gap 9.80 L (10.00-18.00) mmol/L BUN 8.5 L (9.0-27.0) mg/dL BUN/Creatinine Ratio 7.80 L (12.00-20.00) Ratio Glucose 117 H (70-110) mg/dL POC Glucose (mg/dL) 170 H (70-110) mg/dL Calcium 8.0 L (8.7-10.3) mg/dL C-Reactive Protein 12.20 H (0.00-0.80) mg/dL Microbiology - Last 24 Hours (Table) 09/08/22 13:38 Blood Culture Gram Stain - Preliminary Blood Blood Culture - Preliminary Staphylococcus epidermidis 09/09/22 14:36 Gram Stain - Preliminary Foot - Right Wound Culture - Preliminary 09/09/22 14:36 Anaerobic Culture - Preliminary Foot - Right 09/08/22 13:38 Blood Culture - Final Blood 09/08/22 13:35 Blood Culture - Preliminary Blood No Growth after 24 hours Assessment and Plan (1) Cellulitis Current Visit: Yes Status: Acute Code(s): L03.90 - CELLULITIS, UNSPECIFIED SNOMED Code(s): 922106766 (2) Right foot ulcer Current Visit: Yes Status: Acute Code(s): L97.519 - NON-PRS CHRONIC ULCER OTH PRT RIGHT FOOT W UNSP SEVERITY SNOMED Code(s): 964086440 Plan: 1patient presented to hospital with sepsis in this patient who did have a fever elevated white count source is right diabetic foot infection in this patient who did have a necrotic ulcer on the plantar aspect of the right foot will need to call for the polymicrobial estefania usually associated with this diabetic foot infection 2-patient is status post amputation of the right big toe and deep cultures which are currently pending 3-patient to continue vancomycin and Unasyn while waiting for the cultures to finalize
[2022-09-10] MEDS ORDERED: NON FORMULARY DRUG (Semaglutide [Ozempic] 1 MG/0.75 ML Each) SQ SCH (15:30)
[2022-09-10 17:30] LABS: Glucose,Whole Blood 115 mg/dL (70-110)
[2022-09-10 20:21] LABS: Glucose,Whole Blood 145 mg/dL (70-110)
[2022-09-11] MEDS: AMPICILLIN-SULBACTAM 3 GM in SODIUM CHLORIDE 0.9% 100 ML IVPB SCH ×3 (00:52→12:12)
[2022-09-11] MEDS ORDERED: VANCOMYCIN TROUGH DUE 1 EACH MISC MISCELLANE ONE (02:00)
[2022-09-11] MEDS: VANCOMYCIN 2,000 MG in SODIUM CHLORIDE 0.9% 500 ML 500 ML IVPB SCH (03:11)
[2022-09-11 03:31] LABS: African American GFR (CKD) >90 (>60 ml/min/1.73 sqM); Non-African American GFR(CKD) >90 (>60 ml/min/1.73 sqM)
[2022-09-11 07:18] LABS: Glucose,Whole Blood 101 mg/dL (70-110)
[2022-09-11] MEDS: INSULIN ASPART (NovoLOG) 100 UNIT/ML VIAL SQ SCH ×4 (08:05→21:03)
[2022-09-11] MEDS: lisinopriL 10 MG TAB PO SCH ×2 (09:11→21:09)
[2022-09-11] MEDS: PIOGLITAZONE 15 MG TAB PO SCH (09:11)
[2022-09-11] MEDS: ATORVASTATIN 10 MG TAB PO SCH (09:12)
[2022-09-11] MEDS: metFORMIN 500 MG TAB PO SCH ×2 (09:12→21:09)
[2022-09-11 11:23] LABS: Glucose,Whole Blood 111 mg/dL (70-110)
[2022-09-11] MEDS: VANCOMYCIN 1,750 MG in SODIUM CHLORIDE 0.9% 500 ML 500 ML IVPB SCH (15:17)
[2022-09-11 17:18] LABS: Glucose,Whole Blood 116 mg/dL (70-110)
--- NOTE | 2022-09-11 17:28 | PN ---
PROGRESS NOTE This is a 57-year-old gentleman, who came with an infected callus, plantar aspect of the right foot involving the metatarsophalangeal joint and the toe. The patient had a ray amputation done. Culture came back as MRSA. The patient is under care of Infectious Disease with IV antibiotic. The patient has a VAC placed for the wound. We have this time minimal drainage. We will continue with IV antibiotic. MMODL / IJN: [id number] /
--- NOTE | 2022-09-11 18:50 | P.PN ---
Subjective Progress Note Date: 09/11/22 Principal diagnosis: Right diabetic foot infection Patient is a 57-year-old male with a past medical history significant for diabetes mellitus hypertension hyperlipidemia previous history of left diabetic foot infection requiring left below the knee potation patient presented to the hospital with right foot plantar ulcer, patient was taken to the OR and status post amputation of the right big toe involving the metatarsophalangeal joint and also one of the tendons on the plantar aspect of the right big toe procedure completed on 09/09/2022. on today's evaluation, that is 09/11/2022, the patient remains to be afebrile, patient denies having any chest pain or shortness of cough, denies nausea and vomiting no abdominal pain or any worsening pain to the right foot area Objective - Vital Signs Vital signs: Vital Signs Temp 97.9 F 09/11/22 07:19 Pulse 83 09/11/22 07:19 Resp 18 09/11/22 07:19 BP 128/77 09/11/22 07:19 Pulse Ox 96 09/11/22 07:19 FiO2 Intake & Output 09/10/22 09/11/22 09/11/22 18:59 06:59 18:59 Intake Total 700 360 Output Total 675 Balance 25 360 Intake: Intake, IV Titration 700 Amount Ampicillin-Sulbactam 3 gm 200 In Sodium Chloride 0.9% 100 ml @ 200 mls/hr IVPB Q6HR [facility] Rx#:[id number] Vancomycin 2,000 mg In 500 Sodium Chloride 0.9% 500 ml 500 ml @ 167 mls/hr IVPB Q12H [facility] Rx#: [id number] Oral 360 Output: Urine 675 Other: Voiding Method Bedside Commode Bedside Commode Urinal Urinal # Voids 1 3 # Bowel Movements 1 - Exam GENERAL DESCRIPTION: A middle-aged male up in the chair in no distress RESPIRATORY SYSTEM: Unlabored breathing , clear to auscultation HEART: S1 S2 regular rate and rhythm , ABDOMEN: Soft , no tenderness EXTREMITIES: Right big toe amputation site is covered with a wound VAC - Labs CBC & Chem 7: 09/10/22 07:02 09/11/22 02:33 Labs: Abnormal Lab Results - Last 24 Hours (Table) 09/10/22 09/10/22 09/10/22 Range/Units 07:02 17:29 20:17 ESR 89 H (0-20) mm/Hr POC Glucose (mg/dL) 115 H 145 H (70-110) mg/dL 09/11/22 Range/Units 11:22 ESR (0-20) mm/Hr POC Glucose (mg/dL) 111 H (70-110) mg/dL Microbiology - Last 24 Hours (Table) 09/10/22 07:02 Blood Culture - Preliminary Blood No Growth after 24 hours 09/09/22 14:36 Gram Stain - Preliminary Foot - Right Wound Culture - Preliminary Presumptive MRSA 09/08/22 13:35 Blood Culture - Preliminary Blood No Growth after 48 hours 09/08/22 13:38 Blood Culture Gram Stain - Preliminary Blood Blood Culture - Preliminary Staphylococcus epidermidis Assessment and Plan (1) Cellulitis Current Visit: Yes Status: Acute Code(s): L03.90 - CELLULITIS, UNSPECIFIED SNOMED Code(s): 103474399 (2) Right foot ulcer Current Visit: Yes Status: Acute Code(s): L97.519 - NON-PRS CHRONIC ULCER OTH PRT RIGHT FOOT W UNSP SEVERITY SNOMED Code(s): 325061249 Plan: 1patient presented to hospital with sepsis in this patient who did have a fever elevated white count source is right diabetic foot infection in this patient who did have a necrotic ulcer on the plantar aspect of the right foot will need to call for the polymicrobial estefania usually associated with this diabetic foot infection 2-patient is status post amputation of the right big toe and deep cultures which are currently growing presumptive MRSA 3-patient blood culture with staph epi likely skin contamination 4patient to continue with vancomycin we will discontinue Unasyn, will need IV antibiotic on discharge Time with Patient: Less than 30
--- NOTE | 2022-09-11 18:53 | P.PN ---
Subjective patient is a 57-year-old gentleman with past medical history significant for diabetes mellitus, hypertension presented to the ER because of right foot ulcer. Patient stated that she was all right one Z-Meir started noticing an ulcer on his right foot. Over the few days he started noticing foul-smelling discharge. There was no complain of fever or chills. No complaint of nausea and vomiting. Patient was complaining of pain in his right foot as well associated with redness going up his right foot. Patient has history of prior left BKA. Be cause of this right foot ulcer, Patient came to the ER. In the ER, patient was worked up, initial white count was 11.1, hemoglobin 10.3, repeat blood count 93, sodium 137, potassium 4.4,. 09/11/2022 Patients with admitted with right foot cellulitis and infected ulcer and he underwent amputation of the right diabetic toe. Wound VAC in a Place Blood culture is growing MRSA and currently is covered with IV antibiotic with IV vancomycin per infectious disease team. Unasyn was discontinued Patient denies any other complaints. Creatinine is stable. Vitals and labs reviewed. Objective - Vital Signs Vital signs: Vital Signs Temp 98.0 F 09/11/22 12:48 Pulse 80 09/11/22 12:48 Resp 16 09/11/22 12:48 BP 164/88 09/11/22 12:48 Pulse Ox 98 09/11/22 12:48 FiO2 Intake & Output 09/10/22 09/11/22 09/11/22 18:59 06:59 18:59 Intake Total 700 360 Output Total 675 Balance 25 360 Intake: Intake, IV Titration 700 Amount Ampicillin-Sulbactam 3 gm 200 In Sodium Chloride 0.9% 100 ml @ 200 mls/hr IVPB Q6HR [facility] Rx#:[id number] Vancomycin 2,000 mg In 500 Sodium Chloride 0.9% 500 ml 500 ml @ 167 mls/hr IVPB Q12H [facility] Rx#: [id number] Oral 360 Output: Urine 675 Other: Voiding Method Bedside Commode Bedside Commode Urinal Urinal # Voids 1 3 # Bowel Movements 1 - Exam GENERAL: The patient is alert and oriented x3, not in any acute distress. Well developed, well nourished. HEENT: Pupils are round and equally reacting to light. EOMI. No scleral icterus. No conjunctival pallor. Normocephalic, atraumatic. No pharyngeal erythema. No thyromegaly. CARDIOVASCULAR: S1 and S2 present. No murmurs, rubs, or gallops. PULMONARY: Chest is clear to auscultation, no wheezing or crackles. ABDOMEN: Soft, nontender, nondistended, normoactive bowel sounds. No palpable organomegaly. MUSCULOSKELETAL: No joint swelling or deformity. -EXTREMITIES: No cyanosis, clubbing, or pedal edema. Right big toe base wound with wound VAC in place NEUROLOGICAL: Gross neurological examination did not reveal any focal deficits. SKIN: No rashes. no petechiae. - Labs CBC & Chem 7: 09/10/22 07:02 09/11/22 02:33 Labs: Abnormal Lab Results - Last 24 Hours (Table) 09/10/22 09/10/22 09/10/22 Range/Units 07:02 17:29 20:17 ESR 89 H (0-20) mm/Hr POC Glucose (mg/dL) 115 H 145 H (70-110) mg/dL 09/11/22 Range/Units 11:22 ESR (0-20) mm/Hr POC Glucose (mg/dL) 111 H (70-110) mg/dL Microbiology - Last 24 Hours (Table) 09/10/22 07:02 Blood Culture - Preliminary Blood No Growth after 24 hours 09/09/22 14:36 Gram Stain - Preliminary Foot - Right Wound Culture - Preliminary Presumptive MRSA 09/08/22 13:35 Blood Culture - Preliminary Blood No Growth after 48 hours Assessment and Plan Assessment: Right foot cellulitis and right foot diabetic ulcer status post amputation of the right big toe and wound VAC placement, secondary to MRSA Staph epidermidis, positive blood culture most likely contaminant microcytic anemia, stable and chronic Hypertension Hyperlipidemia Diabetes mellitus Plan: Continue with IV antibiotic per ID team, currently on IV vancomycin Vascular surgery team consult is appreciated Continue with wound care Continue with wound VAC per surgery team Labs and medication were reviewed.. Continue same treatment. Continue with symptomatic treatment. Resume home medication. Monitor labs and vitals. DVT and GI prophylaxis. Further recommendations as per clinical course of the patient DVT prophylaxis: Subcutaneous heparin GI Prophylaxis: Pepcid PT/OT: Pending Prognosis is guarded
[2022-09-11 20:30] LABS: Glucose,Whole Blood 108 mg/dL (70-110)
[2022-09-11] MEDS ORDERED: FAMOTIDINE 20 MG/2 ML VIAL IV SCH (21:00)
[2022-09-11] MEDS: HEPARIN SODIUM,PORCINE/PF 5,000 UNIT/0.5 ML SYRINGE SQ SCH (21:08)
[2022-09-12] MEDS: VANCOMYCIN 1,750 MG in SODIUM CHLORIDE 0.9% 500 ML 500 ML IVPB SCH ×2 (03:44→15:18)
[2022-09-12 06:31] LABS: African American GFR (CKD) >90 (>60 ml/min/1.73 sqM); Non-African American GFR(CKD) 86 (>60 ml/min/1.73 sqM)
[2022-09-12 07:17] LABS: Glucose,Whole Blood 112 mg/dL (70-110)
[2022-09-12] MEDS: INSULIN ASPART (NovoLOG) 100 UNIT/ML VIAL SQ SCH ×4 (09:22→19:57)
[2022-09-12] MEDS: metFORMIN 500 MG TAB PO SCH ×2 (09:25→21:07)
[2022-09-12] MEDS: FAMOTIDINE 20 MG TAB PO SCH ×2 (09:25→21:07)
[2022-09-12] MEDS: PIOGLITAZONE 15 MG TAB PO SCH (09:25)
[2022-09-12] MEDS: lisinopriL 10 MG TAB PO SCH ×2 (09:25→21:07)
[2022-09-12] MEDS: ATORVASTATIN 10 MG TAB PO SCH (09:25)
[2022-09-12] MEDS: HEPARIN SODIUM,PORCINE/PF 5,000 UNIT/0.5 ML SYRINGE SQ SCH ×2 (09:25→21:07)
[2022-09-12 11:19] LABS: Glucose,Whole Blood 123 mg/dL (70-110)
--- NOTE | 2022-09-12 11:23 | P.PN ---
Subjective Progress Note Date: 09/12/22 Principal diagnosis: Right diabetic foot infection Patient is a 57-year-old male with a past medical history significant for diabetes mellitus hypertension hyperlipidemia previous history of left diabetic foot infection requiring left below the knee potation patient presented to the hospital with right foot plantar ulcer, patient was taken to the OR and status post amputation of the right big toe involving the metatarsophalangeal joint and also one of the tendons on the plantar aspect of the right big toe procedure completed on 09/09/2022. on today's evaluation, that is 09/12/2022, the patient continues to be afebrile, patient denies chest pain or shortness of cough, the patient denies nausea and vomiting no abdominal pain and pain to the right foot/big toe amputation site is currently controlled Objective - Vital Signs Vital signs: Vital Signs Temp 97.7 F 09/12/22 07:17 Pulse 77 09/12/22 07:17 Resp 16 09/12/22 07:17 BP 153/83 09/12/22 07:17 Pulse Ox 96 09/12/22 07:17 FiO2 Intake & Output 09/11/22 09/12/22 09/12/22 18:59 06:59 18:59 Intake Total 240 Balance 240 Intake: Oral 240 Other: Voiding Method Bedside Commode Urinal # Voids 3 1 # Bowel Movements 1 1 - Exam GENERAL DESCRIPTION: A middle-aged male up in the chair in no distress RESPIRATORY SYSTEM: Unlabored breathing , clear to auscultation HEART: S1 S2 regular rate and rhythm , ABDOMEN: Soft , no tenderness EXTREMITIES: Right big toe amputation site is covered with a wound VAC - Labs CBC & Chem 7: 09/10/22 07:02 09/12/22 06:02 Labs: Abnormal Lab Results - Last 24 Hours (Table) 09/11/22 09/11/22 09/12/22 Range/Units 11:22 17:17 07:16 POC Glucose (mg/dL) 111 H 116 H 112 H (70-110) mg/dL Microbiology - Last 24 Hours (Table) 09/09/22 14:36 Gram Stain - Final Foot - Right Wound Culture - Final Methicillin resist S. aureus 09/08/22 13:38 Blood Culture Gram Stain - Preliminary Blood Blood Culture - Preliminary Staphylococcus epidermidis 09/08/22 13:35 Blood Culture - Preliminary Blood No Growth after 72 hours 09/10/22 07:02 Blood Culture - Preliminary Blood No Growth after 24 hours Assessment and Plan (1) Cellulitis Current Visit: Yes Status: Acute Code(s): L03.90 - CELLULITIS, UNSPECIFIED SNOMED Code(s): 032783519 (2) Right foot ulcer Current Visit: Yes Status: Acute Code(s): L97.519 - NON-PRS CHRONIC ULCER OTH PRT RIGHT FOOT W UNSP SEVERITY SNOMED Code(s): 550555918 Plan: 1patient presented to hospital with sepsis in this patient who did have a fever elevated white count source is right diabetic foot infection in this patient who did have a necrotic ulcer on the plantar aspect of the right foot will need to call for the polymicrobial estefania usually associated with this diabetic foot infection 2-patient is status post amputation of the right big toe and deep cultures which are currently growing presumptive MRSA 3-patient blood culture with staph epi likely skin contamination , repeat blood culture has been negative 4patient to continue with vancomycin pharmacy to dose he will need a PICC line for outpatient antibiotic discussed with the case aide Time with Patient: Less than 30
--- NOTE | 2022-09-12 12:16 | P.CONS ---
History of Present Illness - Chief Complaint Walking difficulty, diabetic right foot ulcer - History of Present Illness I had the opportunity to see patient for inpatient rehab consultation. Patient admitted to Dr. Coronel September 08 with right foot nonhealing wound. Seen by Dr. Guzman for vascular who notes history of previous left BKA 3 years earlier[address] by Dr. Aranda for antibiotic management. Note right foot x-ray done and is within normal limits. OT reports supervision independent with all basic self- care tasks and functional mobility. Note nonweightbearing right leg and a the left BKA stump is apparently swollen and the BK prosthesis doesn't fit. PT prescribed. Previous functional history as elicited from patient: 57-year-old right-handed white male who is lives in one floor home with and 2 kids. Both kids are in school, 17 and a 20 something. Patient works full-time and works part-time. Note that they SHARE the cooking and laundry. Patient with standing shower, driving. PCP Dr. Jama. Review of Systems Review of systems: ENT: Denies sneezes or discharge. Eyes: Denies discharge or photophobia. Cardiac: Denies chest pain or palpitation. Pulmonary: Denies cough or shortness of breath. Gastrointestinal: Denies nausea, emesis, constipation, diarrhea. Genitourinary: Denies discharge or frequency. Musculoskeletal: Old well-healed left BKA. Diabetic right foot ulcer that is status post loss of the great toe. Neurologic: Denies motor or sensory change. Endocrine: Denies shakes or sweats. Oncology: Denies cancers. Dermatologic: Denies rash, itching, pruritus. ALLERGY/immunology: Denies sneezes, rashes. Past Medical History Past Medical History: Diabetes Mellitus, Hyperlipidemia, Hypertension History of Any Multi-Drug Resistant Organisms: MRSA Year Discovered:: 04/25/2019 MDRO Source:: MRSA Past Surgical History: Tonsillectomy Additional Past Surgical History / Comment(s): BKA -2018 Past Anesthesia/Blood Transfusion Reactions: No Reported Reaction Past Psychological History: No Psychological Hx Reported Smoking Status: Never smoker Past Alcohol Use History: Occasional Past Drug Use History: None Reported Medications and Allergies Home Medications Medication Instructions Recorded Confirmed Type Atorvastatin [Lipitor] 10 mg PO DAILY 09/08/22 09/08/22 History Magnesium Oxide [Magnesium] 500 mg PO HS 09/08/22 09/08/22 History Pioglitazone [Actos] 15 mg PO DAILY 09/08/22 09/08/22 History Semaglutide [Ozempic] 1 mg SQ WE 09/08/22 09/08/22 History lisinopriL [Zestril] 10 mg PO BID 09/08/22 09/08/22 History metFORMIN HCL 1,000 mg PO BID 09/08/22 09/08/22 History Allergies Allergy/AdvReac Type Severity Reaction Status Date / Time No Known Allergies Allergy Verified 09/08/22 14:24 Physical Exam Vitals: Vital Signs Temp Pulse Resp BP Pulse Ox 09/12/22 07:17 97.7 F 77 16 153/83 96 09/12/22 01:43 97.6 F 79 15 156/82 97 09/11/22 20:00 15 09/11/22 19:40 97.9 F 89 16 151/77 98 09/11/22 12:48 98.0 F 80 16 164/88 98 Intake and Output 09/11/22 09/12/22 09/12/22 22:59 06:59 14:59 Intake Total 240 Balance 240 Intake: Oral 240 Other: Voiding Method Bedside Commode Urinal # Voids 3 1 1 # Bowel Movements 1 1 Skin: Shiny atrophic changes. Wound right foot with absent right great toe. General: Medium to overweight build and comfortable appearance. Head: Normocephalic, atraumatic. Eyes: Symmetric. Pupils equal round. Ears: Symmetric. Hearing within normal limits. Mouth: Clear. Neck: Supple. Carotid without bruit. Cardiac: Regular rate and rhythm. Lungs: Clear anteriorly and posteriorly. Abdomen: Soft active nontender. Extremities: Normal tone. See skin above. Edema right ankle and foot. Neurological: Mental status: Alert, cooperative, pleasant. Cranial nerves: Symmetric facial tone and trapezius. Motor: Active movement all 4 limbs including distally but poor movement right ankle and foot. Sensation: Intact throughout. DTRs: Symmetric and equal throughout. Mobility: Sits did not attempt to sit or stand at this time. Results CBC & Chem 7: 09/10/22 07:02 09/12/22 06:02 Labs: Abnormal Lab Results - Last 24 Hours (Table) 09/11/22 09/12/22 09/12/22 Range/Units 17:17 07:16 11:18 POC Glucose (mg/dL) 116 H 112 H 123 H (70-110) mg/dL Microbiology - Last 24 Hours (Table) 09/10/22 07:02 Blood Culture - Preliminary Blood No Growth after 48 hours 09/09/22 14:36 Gram Stain - Final Foot - Right Wound Culture - Final Methicillin resist S. aureus 09/08/22 13:38 Blood Culture Gram Stain - Preliminary Blood Blood Culture - Preliminary Staphylococcus epidermidis 09/08/22 13:35 Blood Culture - Preliminary Blood No Growth after 72 hours Assessment and Plan (1) Cellulitis Current Visit: Yes Status: Acute Code(s): L03.90 - CELLULITIS, UNSPECIFIED SNOMED Code(s): 201077229 (2) Diabetes Current Visit: Yes Status: Acute Code(s): E11.9 - TYPE 2 DIABETES MELLITUS WITHOUT COMPLICATIONS SNOMED Code(s): 33316375 (3) Right foot ulcer Current Visit: Yes Status: Acute Code(s): L97.519 - NON-PRS CHRONIC ULCER OTH PRT RIGHT FOOT W UNSP SEVERITY SNOMED Code(s): 198399125 Plan: Comments and plan: Diagnoses should include old left BKA as well. Patient reminds me that he was in inpatient rehab 3 years ago and was initially reluctant to accept him, but was admitted in feels did well. He would like me to remember that when deciding on eye OR. At this time PT reports supervision independent, that is no physical assist needs. We'll await PT note. Patient requires physical assist needs multidisciplinary, i.e. PT and OT, per most insurances guidelines.
--- NOTE | 2022-09-12 14:11 | CDI ---
Documentation Clarification Form Date: 09/12/2022 1:32:09 PM From: Paige Ybarra RN, CCDS Admit Date: 09/08/2022 1:22:00 PM Patient Name: Marvin Dee Visit Number: [id number] Discharge Date: ATTENTION: The Clinical Documentation Specialists (CDI) and [facility] Coding Staff appreciate your assistance in clarifying documentation. Please respond to the clarification below the line at the bottom and electronically sign. The CDI & [facility] Coding staff will review the response and follow-up if needed. Please note: Queries are made part of the Legal Health Record. If you have any questions, please contact the author of this message via ITS. Dr. Gildardo Coronel The patient has Sepsis documentation in the ID consult and subsequent progress notes starting on 09/09/22. Based on this information and the findings below, is there an additional diagnosis that is clinically appropriate for this patient? 09/09 ID consult/progress notes: patient presented to hospital with sepsis in this patient who did have a fever elevated white count source is right diabetic foot infection in this patient who did have a necrotic ulcer on the plantar aspect of the right foot. 09/11 ID: status post amputation of the right big toe and deep cultures which are currently growing presumptive MRSA. Patient blood culture with staph epi likely skin contamination. History/Risk Factors: Left BKA, Diabetes Mellitus, Hyperlipidemia, Hypertension Clinical Indicators: 57-year-old present to ED with diabetic foot ulcer. Infected right plantar surface of the foot near the MCP with ulcer up to 4 x 5 cm with foul odor and streaking up to the proximal foot. There is probable necrosis within the ulcer per ED assessment. 09/08 VS: 129/74 104 18 99 98 % RA, 101.5, 100.7, 97.5 09/08 WBC 11.1 Neutrophils 9.6 09/08 Blood cultures: Gram Positive Cocci in clusters (Staphylococcus epidermidis) Treatment: Vancomycin 2,000 MG IVPB 09/09, then, 1,750 MG IVPB Q 12 HRS (PTD) Zosyn 3.375 GM IVPB Q 8 HRS 08/11-09/09 Unasyn 3 GM IVPB Q 6 HRS 09/10-09/11 Is there an additional diagnosis that is clinically appropriate for this patient? [ ] Sepsis, present on admission [ ] Sepsis ruled out [ ] Other, please specify [ ] Unable to determine SIRS Criteria: 2 or more of the following may indicate SIRS Temperature < 96.8F (36C) or > 101.0F (38.3C) Heart Rate > 90 bpm Respiratory Rate > 20 breaths/min or PaCO2 < 32 mmHg White Blood Cell Count > 12,000 or < 4,000 cells/mm3 or > 10% bands (Template Last Reviewed: June 2022) Sepsis, present on admission, with fever and leukocytosis MTDD
[2022-09-12 17:26] LABS: Glucose,Whole Blood 131 mg/dL (70-110)
--- NOTE | 2022-09-12 18:42 | P.PN ---
Subjective patient is a 57-year-old gentleman with past medical history significant for diabetes mellitus, hypertension presented to the ER because of right foot ulcer. Patient stated that she was all right one Z-Meir started noticing an ulcer on his right foot. Over the few days he started noticing foul-smelling discharge. There was no complain of fever or chills. No complaint of nausea and vomiting. Patient was complaining of pain in his right foot as well associated with redness going up his right foot. Patient has history of prior left BKA. Be cause of this right foot ulcer, Patient came to the ER. In the ER, patient was worked up, initial white count was 11.1, hemoglobin 10.3, repeat blood count 93, sodium 137, potassium 4.4,. 09/11/2022 Patients with admitted with right foot cellulitis and infected ulcer and he underwent amputation of the right diabetic toe. Wound VAC in a Place Blood culture is growing MRSA and currently is covered with IV antibiotic with IV vancomycin per infectious disease team. Unasyn was discontinued Patient denies any other complaints. Creatinine is stable. Vitals and labs reviewed. 09/12/2022 pt is clinically is improving and right foot wound is improving as well no new complaint, wound culture is growing mrsa and plan for picc line and iv antibiotic upon discharge , pt is aware and is agreeable Objective - Vital Signs Vital signs: Vital Signs Temp 97.7 F 09/12/22 07:17 Pulse 77 09/12/22 07:17 Resp 16 09/12/22 07:17 BP 153/83 09/12/22 07:17 Pulse Ox 96 09/12/22 07:17 FiO2 Intake & Output 09/11/22 09/12/22 09/12/22 18:59 06:59 18:59 Intake Total 240 Balance 240 Intake: Oral 240 Other: Voiding Method Bedside Commode Urinal # Voids 3 1 1 # Bowel Movements 1 1 - Exam GENERAL: The patient is alert and oriented x3, not in any acute distress. Well developed, well nourished. HEENT: Pupils are round and equally reacting to light. EOMI. No scleral icterus. No conjunctival pallor. Normocephalic, atraumatic. No pharyngeal erythema. No thyromegaly. CARDIOVASCULAR: S1 and S2 present. No murmurs, rubs, or gallops. PULMONARY: Chest is clear to auscultation, no wheezing or crackles. ABDOMEN: Soft, nontender, nondistended, normoactive bowel sounds. No palpable organomegaly. MUSCULOSKELETAL: No joint swelling or deformity. -EXTREMITIES: No cyanosis, clubbing, or pedal edema. Right big toe base wound with wound VAC in place NEUROLOGICAL: Gross neurological examination did not reveal any focal deficits. SKIN: No rashes. no petechiae. - Labs CBC & Chem 7: 09/10/22 07:02 09/12/22 06:02 Labs: Abnormal Lab Results - Last 24 Hours (Table) 09/11/22 09/12/22 09/12/22 Range/Units 17:17 07:16 11:18 POC Glucose (mg/dL) 116 H 112 H 123 H (70-110) mg/dL Microbiology - Last 24 Hours (Table) 09/10/22 07:02 Blood Culture - Preliminary Blood No Growth after 48 hours 09/09/22 14:36 Gram Stain - Final Foot - Right Wound Culture - Final Methicillin resist S. aureus 09/08/22 13:38 Blood Culture Gram Stain - Preliminary Blood Blood Culture - Preliminary Staphylococcus epidermidis 09/08/22 13:35 Blood Culture - Preliminary Blood No Growth after 72 hours Assessment and Plan Assessment: Right foot cellulitis and right foot diabetic ulcer status post amputation of the right big toe and wound VAC placement, secondary to MRSA Staph epidermidis, positive blood culture most likely contaminant microcytic anemia, stable and chronic Hypertension Hyperlipidemia Diabetes mellitus Plan: Continue with IV antibiotic per ID team, currently on IV vancomycin Vascular surgery team consult is appreciated Continue with wound care Continue with wound VAC per surgery team Labs and medication were reviewed.. Continue same treatment. Continue with symptomatic treatment. Resume home medication. Monitor labs and vitals. DVT and GI prophylaxis. Further recommendations as per clinical course of the patient DVT prophylaxis: Subcutaneous heparin GI Prophylaxis: Pepcid PT/OT: Pending Prognosis is guarded
[2022-09-12 19:47] LABS: Glucose,Whole Blood 148 mg/dL (70-110)
[2022-09-13] MEDS ORDERED: VANCOMYCIN TROUGH DUE 1 EACH MISC MISCELLANE ONE (02:00)
[2022-09-13 02:24] LABS: African American GFR (CKD) >90 (>60 ml/min/1.73 sqM); Anion Gap 7 mmol/L; Blood Urea Nitrogen 11 mg/dL (9-20); Calcium 8.2 mg/dL (8.4-10.2); Carbon Dioxide 25 mmol/L (22-30); Chloride 107 mmol/L (98-107); Glucose 111 mg/dL (74-99); Non-African American GFR(CKD) >90 (>60 ml/min/1.73 sqM); Potassium 4.4 mmol/L (3.5-5.1); Sodium 139 mmol/L (137-145)
[2022-09-13] MEDS: VANCOMYCIN 1,750 MG in SODIUM CHLORIDE 0.9% 500 ML 500 ML IVPB SCH (03:19)
[2022-09-13 07:50] LABS: Glucose,Whole Blood 123 mg/dL (70-110)
[2022-09-13] MEDS: INSULIN ASPART (NovoLOG) 100 UNIT/ML VIAL SQ SCH ×4 (08:06→21:08)
[2022-09-13] MEDS: HEPARIN SODIUM,PORCINE/PF 5,000 UNIT/0.5 ML SYRINGE SQ SCH ×2 (09:50→21:14)
[2022-09-13] MEDS: FAMOTIDINE 20 MG TAB PO SCH ×2 (09:50→21:12)
[2022-09-13] MEDS: lisinopriL 10 MG TAB PO SCH ×2 (09:50→21:12)
[2022-09-13] MEDS: ATORVASTATIN 10 MG TAB PO SCH (09:50)
[2022-09-13] MEDS: metFORMIN 500 MG TAB PO SCH ×2 (09:50→21:14)
[2022-09-13] MEDS: PIOGLITAZONE 15 MG TAB PO SCH (09:51)
--- NOTE | 2022-09-13 10:41 | P.PCN ---
Description of Procedure: 57-year-old white male patient came with infected right foot big toe involving the metatarsophalangeal joint patient and with a ray amputation. Eschen is an IV antibiotic and we'll start him on VAC therapy's minimum drainage noted. We have removed the basal the wound is dry we'll use Santyl cream which should be changed daily patient with PICC line for IV antibiotic for long-term
[2022-09-13 12:13] LABS: Glucose,Whole Blood 153 mg/dL (70-110)
[2022-09-13] MEDS: COLLAGENASE 250 UNIT/GM OINTMENT 30 GM TUBE TOPICAL SCH (13:33)
[2022-09-13] MEDS: metroNIDAZOLE 500 MG TAB PO SCH ×2 (16:23→21:14)
--- NOTE | 2022-09-13 17:08 | P.PN ---
Subjective Progress Note Date: 09/13/22 Principal diagnosis: Right diabetic foot infection Patient is a 57-year-old male with a past medical history significant for diabetes mellitus hypertension hyperlipidemia previous history of left diabetic foot infection requiring left below the knee potation patient presented to the hospital with right foot plantar ulcer, patient was taken to the OR and status post amputation of the right big toe involving the metatarsophalangeal joint and also one of the tendons on the plantar aspect of the right big toe procedure completed on 09/09/2022. on today's evaluation, that is 09/13/2022, the patient remains to be afebrile, patient denies chest pain or shortness of cough, the patient denies nausea and vomiting no abdominal pain and pain to the right foot/big toe amputation site is currently controlled, wound VAC has been discontinued by vascular surgery Objective - Vital Signs Vital signs: Vital Signs Temp 98.2 F 09/13/22 11:43 Pulse 77 09/13/22 11:43 Resp 18 09/13/22 11:43 BP 139/85 09/13/22 11:43 Pulse Ox 98 09/13/22 11:43 FiO2 Intake & Output 09/12/22 09/13/22 09/13/22 18:59 06:59 18:59 Other: Voiding Method Bedside Commode Bedside Commode Urinal Urinal # Voids 2 1 3 # Bowel Movements 1 - Exam GENERAL DESCRIPTION: A middle-aged male up in the chair in no distress RESPIRATORY SYSTEM: Unlabored breathing , clear to auscultation HEART: S1 S2 regular rate and rhythm , ABDOMEN: Soft , no tenderness EXTREMITIES: Right big toe amputation site is dressed no drainage on the dressing - Labs CBC & Chem 7: 09/10/22 07:02 09/13/22 01:52 Labs: Abnormal Lab Results - Last 24 Hours (Table) 09/12/22 09/12/22 09/13/22 Range/Units 17:25 19:44 01:52 Glucose 111 H (74-99) mg/dL POC Glucose (mg/dL) 131 H 148 H (70-110) mg/dL Calcium 8.2 L (8.4-10.2) mg/dL 09/13/22 09/13/22 Range/Units 07:48 12:10 Glucose (74-99) mg/dL POC Glucose (mg/dL) 123 H 153 H (70-110) mg/dL Calcium (8.4-10.2) mg/dL Microbiology - Last 24 Hours (Table) 09/10/22 07:02 Blood Culture - Preliminary Blood No Growth after 72 hours 09/09/22 14:36 Anaerobic Culture - Final Foot - Right Anaerobic Gm Negative Bacilli Anaerobic Gm Negative Bacilli#2 09/08/22 13:35 Blood Culture - Preliminary Blood No Growth after 96 hours Assessment and Plan (1) Cellulitis Current Visit: Yes Status: Acute Code(s): L03.90 - CELLULITIS, UNSPECIFIED SNOMED Code(s): 444430609 (2) Right foot ulcer Current Visit: Yes Status: Acute Code(s): L97.519 - NON-PRS CHRONIC ULCER OTH PRT RIGHT FOOT W UNSP SEVERITY SNOMED Code(s): 573111292 Plan: 1patient presented to hospital with sepsis in this patient who did have a fever elevated white count source is right diabetic foot infection in this patient who did have a necrotic ulcer on the plantar aspect of the right foot will need to call for the polymicrobial estefania usually associated with this diabetic foot infection 2-patient is status post amputation of the right big toe and deep cultures which are currently grew MRSA and anaerobic gram-negative 3-patient blood culture with staph epi likely skin contamination , repeat blood culture has been negative 4patient to continue with vancomycin pharmacy to dose, we will add oral Flagyl to cover for the gram negatives anaerobes Time with Patient: Less than 30
[2022-09-13 17:16] LABS: Glucose,Whole Blood 98 mg/dL (70-110)
[2022-09-13] MEDS: VANCOMYCIN 1,500 MG in SODIUM CHLORIDE 0.9% 500 ML 500 ML IVPB SCH (17:34)
[2022-09-13 21:11] LABS: Glucose,Whole Blood 133 mg/dL (70-110)
--- NOTE | 2022-09-13 23:02 | P.PN ---
Subjective patient is a 57-year-old gentleman with past medical history significant for diabetes mellitus, hypertension presented to the ER because of right foot ulcer. Patient stated that she was all right one Z-Meir started noticing an ulcer on his right foot. Over the few days he started noticing foul-smelling discharge. There was no complain of fever or chills. No complaint of nausea and vomiting. Patient was complaining of pain in his right foot as well associated with redness going up his right foot. Patient has history of prior left BKA. Be cause of this right foot ulcer, Patient came to the ER. In the ER, patient was worked up, initial white count was 11.1, hemoglobin 10.3, repeat blood count 93, sodium 137, potassium 4.4,. 09/11/2022 Patients with admitted with right foot cellulitis and infected ulcer and he underwent amputation of the right diabetic toe. Wound VAC in a Place Blood culture is growing MRSA and currently is covered with IV antibiotic with IV vancomycin per infectious disease team. Unasyn was discontinued Patient denies any other complaints. Creatinine is stable. Vitals and labs reviewed. 09/12/2022 pt is clinically is improving and right foot wound is improving as well no new complaint, wound culture is growing mrsa and plan for picc line and iv antibiotic upon discharge , pt is aware and is agreeable 09/13/2022 Patient generally doing well Wound VAC was discontinued by vascular surgery team Antibiotic was adjusted to IV vancomycin and Flagyl per ID team Patient will need PICC line which could not be done until Thursday Objective - Vital Signs Vital signs: Vital Signs Temp 98.2 F 09/13/22 11:43 Pulse 77 09/13/22 11:43 Resp 18 09/13/22 11:43 BP 139/85 09/13/22 11:43 Pulse Ox 98 09/13/22 11:43 FiO2 Intake & Output 09/12/22 09/13/22 09/13/22 18:59 06:59 18:59 Other: Voiding Method Bedside Commode Bedside Commode Urinal Urinal # Voids 2 1 3 # Bowel Movements 1 - Exam GENERAL: The patient is alert and oriented x3, not in any acute distress. Well developed, well nourished. HEENT: Pupils are round and equally reacting to light. EOMI. No scleral icterus. No conjunctival pallor. Normocephalic, atraumatic. No pharyngeal erythema. No thyromegaly. CARDIOVASCULAR: S1 and S2 present. No murmurs, rubs, or gallops. PULMONARY: Chest is clear to auscultation, no wheezing or crackles. ABDOMEN: Soft, nontender, nondistended, normoactive bowel sounds. No palpable organomegaly. MUSCULOSKELETAL: No joint swelling or deformity. -EXTREMITIES: No cyanosis, clubbing, or pedal edema. Right big toe base wound with wound VAC in place NEUROLOGICAL: Gross neurological examination did not reveal any focal deficits. SKIN: No rashes. no petechiae. - Labs CBC & Chem 7: 09/10/22 07:02 09/13/22 01:52 Labs: Abnormal Lab Results - Last 24 Hours (Table) 09/12/22 09/12/22 09/13/22 Range/Units 17:25 19:44 01:52 Glucose 111 H (74-99) mg/dL POC Glucose (mg/dL) 131 H 148 H (70-110) mg/dL Calcium 8.2 L (8.4-10.2) mg/dL 09/13/22 09/13/22 Range/Units 07:48 12:10 Glucose (74-99) mg/dL POC Glucose (mg/dL) 123 H 153 H (70-110) mg/dL Calcium (8.4-10.2) mg/dL Microbiology - Last 24 Hours (Table) 09/10/22 07:02 Blood Culture - Preliminary Blood No Growth after 72 hours 09/09/22 14:36 Anaerobic Culture - Final Foot - Right Anaerobic Gm Negative Bacilli Anaerobic Gm Negative Bacilli#2 09/08/22 13:35 Blood Culture - Preliminary Blood No Growth after 96 hours Assessment and Plan Assessment: Right foot cellulitis and right foot diabetic ulcer status post amputation of the right big toe and wound VAC placement, secondary to MRSA Staph epidermidis, positive blood culture most likely contaminant microcytic anemia, stable and chronic Hypertension Hyperlipidemia Diabetes mellitus Plan: Continue with IV antibiotic per ID team, currently on IV vancomycin and Flagyl Vascular surgery team consult is appreciated Continue with wound care Labs and medication were reviewed.. Continue same treatment. Continue with symptomatic treatment. Resume home medication. Monitor labs and vitals. DVT and GI prophylaxis. Further recommendations as per clinical course of the patient DVT prophylaxis: Subcutaneous heparin GI Prophylaxis: Pepcid PT/OT: Pending Prognosis is guarded
[2022-09-14] MEDS: VANCOMYCIN 1,500 MG in SODIUM CHLORIDE 0.9% 500 ML 500 ML IVPB SCH ×2 (05:28→17:58)
[2022-09-14 07:08] LABS: African American GFR (CKD) >90 (>60 ml/min/1.73 sqM); Non-African American GFR(CKD) 89 (>60 ml/min/1.73 sqM)
[2022-09-14 07:39] LABS: Glucose,Whole Blood 105 mg/dL (70-110)
[2022-09-14] MEDS: INSULIN ASPART (NovoLOG) 100 UNIT/ML VIAL SQ SCH ×4 (07:44→22:02)
[2022-09-14] MEDS: PIOGLITAZONE 15 MG TAB PO SCH (09:26)
[2022-09-14] MEDS: metFORMIN 500 MG TAB PO SCH ×2 (09:26→22:02)
[2022-09-14] MEDS: FAMOTIDINE 20 MG TAB PO SCH ×2 (09:26→22:02)
[2022-09-14] MEDS: ATORVASTATIN 10 MG TAB PO SCH (09:26)
[2022-09-14] MEDS: metroNIDAZOLE 500 MG TAB PO SCH ×3 (09:26→22:02)
[2022-09-14] MEDS: HEPARIN SODIUM,PORCINE/PF 5,000 UNIT/0.5 ML SYRINGE SQ SCH ×2 (09:26→22:02)
[2022-09-14] MEDS: lisinopriL 10 MG TAB PO SCH ×2 (09:26→22:02)
[2022-09-14 11:54] LABS: Glucose,Whole Blood 108 mg/dL (70-110)
--- NOTE | 2022-09-14 16:06 | P.PN ---
Subjective Progress Note Date: 09/14/22 Principal diagnosis: Right diabetic foot infection Patient is a 57-year-old male with a past medical history significant for diabetes mellitus hypertension hyperlipidemia previous history of left diabetic foot infection requiring left below the knee potation patient presented to the hospital with right foot plantar ulcer, patient was taken to the OR and status post amputation of the right big toe involving the metatarsophalangeal joint and also one of the tendons on the plantar aspect of the right big toe procedure completed on 09/09/2022. on today's evaluation, that is 09/14/2022, the patient continues to be afebrile, patient denies chest pain or shortness of cough, the patient denies nausea and vomiting no abdominal pain, the patient denies pain to the right foot/big toe amputation site Objective - Vital Signs Vital signs: Vital Signs Temp 98.3 F 09/14/22 11:40 Pulse 85 09/14/22 11:40 Resp 18 09/14/22 11:40 BP 149/89 09/14/22 11:40 Pulse Ox 97 09/14/22 11:40 FiO2 Intake & Output 09/13/22 09/14/22 09/14/22 18:59 06:59 18:59 Intake Total 500 300 Balance 500 300 Intake: Intake, IV Titration 500 Amount Vancomycin 1,500 mg In 500 Sodium Chloride 0.9% 500 ml 500 ml @ 167 mls/hr IVPB Q12H [facility] Rx#: [id number] Oral 300 Other: Voiding Method Bedside Commode Bedside Commode Bedside Commode Urinal Urinal Urinal # Voids 3 2 1 # Bowel Movements 1 1 1 - Exam GENERAL DESCRIPTION: A middle-aged male up in the chair in no distress RESPIRATORY SYSTEM: Unlabored breathing , clear to auscultation HEART: S1 S2 regular rate and rhythm , ABDOMEN: Soft , no tenderness EXTREMITIES: Right big toe amputation site wound is pretty deep less left tissue surrounding redness has improved - Labs CBC & Chem 7: 09/10/22 07:02 09/14/22 06:38 Labs: Abnormal Lab Results - Last 24 Hours (Table) 09/13/22 Range/Units 20:52 POC Glucose (mg/dL) 133 H (70-110) mg/dL Microbiology - Last 24 Hours (Table) 09/10/22 07:02 Blood Culture - Preliminary Blood No Growth after 96 hours 09/08/22 13:35 Blood Culture - Preliminary Blood No Growth after 120 hours 09/08/22 13:38 Blood Culture Gram Stain - Final Blood Blood Culture - Final Staphylococcus epidermidis Assessment and Plan (1) Cellulitis Current Visit: Yes Status: Acute Code(s): L03.90 - CELLULITIS, UNSPECIFIED SNOMED Code(s): 903597862 (2) Right foot ulcer Current Visit: Yes Status: Acute Code(s): L97.519 - NON-PRS CHRONIC ULCER OTH PRT RIGHT FOOT W UNSP SEVERITY SNOMED Code(s): 430713443 Plan: 1patient presented to hospital with sepsis in this patient who did have a fever elevated white count source is right diabetic foot infection in this patient who did have a necrotic ulcer on the plantar aspect of the right foot will need to call for the polymicrobial estefania usually associated with this diabetic foot infection 2-patient is status post amputation of the right big toe and deep cultures which are currently grew MRSA and anaerobic gram-negative 3-patient blood culture with staph epi likely skin contamination , repeat blood culture has been negative 4patient to continue with vancomycin pharmacy to dose along with oral Flagyl, plans for PICC line and outpatient IV antibiotic therapy local wound care to continue per surgery Time with Patient: Less than 30
[2022-09-14] MEDS: COLLAGENASE 250 UNIT/GM OINTMENT 30 GM TUBE TOPICAL SCH (17:01)
[2022-09-14 17:36] LABS: Glucose,Whole Blood 147 mg/dL (70-110)
[2022-09-14 20:19] LABS: Glucose,Whole Blood 155 mg/dL (70-110)
--- NOTE | 2022-09-14 21:31 | P.PN ---
Subjective patient is a 57-year-old gentleman with past medical history significant for diabetes mellitus, hypertension presented to the ER because of right foot ulcer. Patient stated that she was all right one Z-Meir started noticing an ulcer on his right foot. Over the few days he started noticing foul-smelling discharge. There was no complain of fever or chills. No complaint of nausea and vomiting. Patient was complaining of pain in his right foot as well associated with redness going up his right foot. Patient has history of prior left BKA. Be cause of this right foot ulcer, Patient came to the ER. In the ER, patient was worked up, initial white count was 11.1, hemoglobin 10.3, repeat blood count 93, sodium 137, potassium 4.4,. 09/11/2022 Patients with admitted with right foot cellulitis and infected ulcer and he underwent amputation of the right diabetic toe. Wound VAC in a Place Blood culture is growing MRSA and currently is covered with IV antibiotic with IV vancomycin per infectious disease team. Unasyn was discontinued Patient denies any other complaints. Creatinine is stable. Vitals and labs reviewed. 09/12/2022 pt is clinically is improving and right foot wound is improving as well no new complaint, wound culture is growing mrsa and plan for picc line and iv antibiotic upon discharge , pt is aware and is agreeable 09/13/2022 Patient generally doing well Wound VAC was discontinued by vascular surgery team Antibiotic was adjusted to IV vancomycin and Flagyl per ID team Patient will need PICC line which could not be done until Thursday09/14/2022 Patient with known new complaint, no pain. Left wound of the foot is healing slowly, wound VAC was discontinued yesterday Patient currently on Flagyl and IV vancomycin Plan for PICC line tomorrow in preparation for discharge Objective - Vital Signs Vital signs: Vital Signs Temp 98.3 F 09/14/22 11:40 Pulse 85 09/14/22 11:40 Resp 18 09/14/22 11:40 BP 149/89 09/14/22 11:40 Pulse Ox 97 09/14/22 11:40 FiO2 Intake & Output 09/13/22 09/14/22 09/14/22 18:59 06:59 18:59 Intake Total 500 300 Balance 500 300 Intake: Intake, IV Titration 500 Amount Vancomycin 1,500 mg In 500 Sodium Chloride 0.9% 500 ml 500 ml @ 167 mls/hr IVPB Q12H [facility] Rx#: [id number] Oral 300 Other: Voiding Method Bedside Commode Bedside Commode Bedside Commode Urinal Urinal Urinal # Voids 3 2 # Bowel Movements 1 1 - Exam GENERAL: The patient is alert and oriented x3, not in any acute distress. Well developed, well nourished. HEENT: Pupils are round and equally reacting to light. EOMI. No scleral icterus. No conjunctival pallor. Normocephalic, atraumatic. No pharyngeal erythema. No thyromegaly. CARDIOVASCULAR: S1 and S2 present. No murmurs, rubs, or gallops. PULMONARY: Chest is clear to auscultation, no wheezing or crackles. ABDOMEN: Soft, nontender, nondistended, normoactive bowel sounds. No palpable organomegaly. MUSCULOSKELETAL: No joint swelling or deformity. -EXTREMITIES: No cyanosis, clubbing, or pedal edema. Right big toe base wound with wound VAC in place NEUROLOGICAL: Gross neurological examination did not reveal any focal deficits. SKIN: No rashes. no petechiae. - Labs CBC & Chem 7: 09/10/22 07:02 09/14/22 06:38 Labs: Abnormal Lab Results - Last 24 Hours (Table) 09/13/22 Range/Units 20:52 POC Glucose (mg/dL) 133 H (70-110) mg/dL Microbiology - Last 24 Hours (Table) 09/10/22 07:02 Blood Culture - Preliminary Blood No Growth after 96 hours 09/08/22 13:35 Blood Culture - Preliminary Blood No Growth after 120 hours 09/08/22 13:38 Blood Culture Gram Stain - Final Blood Blood Culture - Final Staphylococcus epidermidis Assessment and Plan Assessment: Right foot cellulitis and right foot diabetic ulcer status post amputation of the right big toe and wound VAC placement, secondary to MRSA Staph epidermidis, positive blood culture most likely contaminant microcytic anemia, stable and chronic Hypertension Hyperlipidemia Diabetes mellitus Plan: Continue with IV antibiotic per ID team, currently on IV vancomycin and Flagyl Vascular surgery team consult is appreciated Continue with wound care Labs and medication were reviewed.. Continue same treatment. Continue with symptomatic treatment. Resume home medication. Monitor labs and vitals. DVT and GI prophylaxis. Further recommendations as per clinical course of the patient DVT prophylaxis: Subcutaneous heparin GI Prophylaxis: Pepcid PT/OT: Pending Prognosis is guarded
[2022-09-15] MEDS: VANCOMYCIN 1,500 MG in SODIUM CHLORIDE 0.9% 500 ML 500 ML IVPB SCH ×2 (05:46→17:34)
[2022-09-15 05:58] LABS: African American GFR (CKD) >90 (>60 ml/min/1.73 sqM); Non-African American GFR(CKD) 86 (>60 ml/min/1.73 sqM)
[2022-09-15 07:30] LABS: Glucose,Whole Blood 106 mg/dL (70-110)
[2022-09-15] MEDS: INSULIN ASPART (NovoLOG) 100 UNIT/ML VIAL SQ SCH ×4 (08:38→20:45)
[2022-09-15] MEDS: FAMOTIDINE 20 MG TAB PO SCH ×2 (09:20→21:12)
[2022-09-15] MEDS: lisinopriL 10 MG TAB PO SCH ×2 (09:20→21:12)
[2022-09-15] MEDS: metFORMIN 500 MG TAB PO SCH ×2 (09:20→21:13)
[2022-09-15] MEDS: metroNIDAZOLE 500 MG TAB PO SCH ×3 (09:20→21:12)
[2022-09-15] MEDS: ATORVASTATIN 10 MG TAB PO SCH (09:21)
[2022-09-15] MEDS: HEPARIN SODIUM,PORCINE/PF 5,000 UNIT/0.5 ML SYRINGE SQ SCH ×2 (09:21→21:13)
[2022-09-15] MEDS: PIOGLITAZONE 15 MG TAB PO SCH (09:21)
[2022-09-15] MEDS: COLLAGENASE 250 UNIT/GM OINTMENT 30 GM TUBE TOPICAL SCH (09:22)
[2022-09-15 11:55] LABS: Glucose,Whole Blood 120 mg/dL (70-110)
[2022-09-15] MEDS: LIDOCAINE 1% INJ 10MG/ML (5 ML VIAL-PF) SQ ONE ×2 (14:10→14:20)
--- NOTE | 2022-09-15 15:04 | IR ---
PICC LINE PLACEMENT: HISTORY: Infection requiring long-term antibiotic therapy PROCEDURE: Ultrasound and fluoroscopic guidance of PICC line placement. COMPLICATIONS: None ANESTHESIA: 1. 1% Lidocaine locally. FINDINGS/TECHNIQUE: The procedure was explained to the patient. The risks, complications, benefits and alternatives were discussed and any questions were answered. Informed consent was obtained. The patient was placed supine on the fluoroscopic table and prepped and draped in the usual sterile fash ion. Utilizing a 21 gauge needle and sonographic and fluoroscopic guidance, access in the right bas ilic vein was achieved and there is placement of a 0.018 guidewire. The vein is patent. A 4-F sheat h was placed over the guidewire. The guidewire and dilator were removed and a 4-F. PICC line was brandi elbert through the sheath with the tip at the level of the SVC. The sheath was removed, the catheter wa s flushed and sutured into position. The patient was stable throughout the procedure and remained st able upon discharge from the Department of Radiology. 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 The vein puncture was patent under ultrasound. A kennedy scale image was obtained to document patency of the vein punctured. All elements of the maximal barrier technique were utilized. FLUOROSCOPY TIME: DAP 0.8294Gy cm2 IMPRESSION: Successful PICC line placement under ultrasound and fluoroscopic guidance.
[2022-09-15 17:21] LABS: Glucose,Whole Blood 114 mg/dL (70-110)
--- NOTE | 2022-09-15 19:00 | P.PN ---
Subjective Progress Note Date: 09/15/22 Principal diagnosis: Right diabetic foot infection Patient is a 57-year-old male with a past medical history significant for diabetes mellitus hypertension hyperlipidemia previous history of left diabetic foot infection requiring left below the knee potation patient presented to the hospital with right foot plantar ulcer, patient was taken to the OR and status post amputation of the right big toe involving the metatarsophalangeal joint and also one of the tendons on the plantar aspect of the right big toe procedure completed on 09/09/2022. on today's evaluation, that is 09/15/2022 patient denies having any fever or any chills, the patient is breathing comfortably on room air no chest pain shortness of breath or cough no abdominal pain or any worsening pain to the right big toe amputation site wound area Objective - Vital Signs Vital signs: Vital Signs Temp 98.3 F 09/15/22 11:48 Pulse 80 09/15/22 11:48 Resp 16 09/15/22 11:48 BP 154/86 09/15/22 11:48 Pulse Ox 99 09/15/22 11:48 FiO2 Intake & Output 09/14/22 09/15/22 09/15/22 18:59 06:59 18:59 Intake Total 500 Balance 500 Intake: Intake, IV Titration 500 Amount Vancomycin 1,500 mg In 500 Sodium Chloride 0.9% 500 ml 500 ml @ 167 mls/hr IVPB Q12H [facility] Rx#: [id number] Other: Voiding Method Bedside Commode Bedside Commode Bedside Commode Urinal Urinal Urinal # Voids 1 1 3 # Bowel Movements 1 1 1 - Exam GENERAL DESCRIPTION: A middle-aged male up in the chair in no distress RESPIRATORY SYSTEM: Unlabored breathing , clear to auscultation HEART: S1 S2 regular rate and rhythm , ABDOMEN: Soft , no tenderness EXTREMITIES: Right big toe amputation site wound is pretty deep less left tissue surrounding redness has improved - Labs CBC & Chem 7: 09/10/22 07:02 09/15/22 04:46 Labs: Abnormal Lab Results - Last 24 Hours (Table) 09/14/22 09/14/22 09/15/22 Range/Units 17:35 20:17 11:51 POC Glucose (mg/dL) 147 H 155 H 120 H (70-110) mg/dL Microbiology - Last 24 Hours (Table) 09/10/22 07:02 Blood Culture - Preliminary Blood No Growth after 120 hours 09/08/22 13:35 Blood Culture - Final Blood No Growth after 144 hours Assessment and Plan (1) Cellulitis Current Visit: Yes Status: Acute Code(s): L03.90 - CELLULITIS, UNSPECIFIED SNOMED Code(s): 436236115 (2) Right foot ulcer Current Visit: Yes Status: Acute Code(s): L97.519 - NON-PRS CHRONIC ULCER OTH PRT RIGHT FOOT W UNSP SEVERITY SNOMED Code(s): 514187431 Plan: 1patient presented to hospital with sepsis in this patient who did have a fever elevated white count source is right diabetic foot infection in this patient who did have a necrotic ulcer on the plantar aspect of the right foot will need to call for the polymicrobial estefania usually associated with this diabetic foot infection 2-patient is status post amputation of the right big toe and deep cultures which are currently grew MRSA and anaerobic gram-negative 3-patient blood culture with staph epi likely skin contamination , repeat blood culture has been negative 4Patient to continue with vancomycin pharmacy to dose and oral Flagyl x6 weeks currently waiting for outpatient antibiotic arrangement and placement care was discussed with admitting physician Time with Patient: Less than 30
--- NOTE | 2022-09-15 19:37 | P.PN ---
Progress Note - Text Progress Note Date: 09/15/22 patient is a 57-year-old gentleman with past medical history significant for diabetes mellitus, hypertension presented to the ER because of right foot ulcer. Patient stated that she was all right one Z-Meir started noticing an ulcer on his right foot. Over the few days he started noticing foul-smelling discharge. There was no complain of fever or chills. No complaint of nausea and vomiting. Patient was complaining of pain in his right foot as well associated with redness going up his right foot. Patient has history of prior left BKA. Because of this right foot ulcer, Patient came to the ER. In the ER, patient was worked up, initial white count was 11.1, hemoglobin 10.3, repeat blood count 93, sodium 137, potassium 4.4,. 09/11/2022 Patients with admitted with right foot cellulitis and infected ulcer and he underwent amputation of the right diabetic toe. Wound VAC in a Place Blood culture is growing MRSA and currently is covered with IV antibiotic with IV vancomycin per infectious disease team. Unasyn was discontinued Patient denies any other complaints. Creatinine is stable. Vitals and labs reviewed. 09/12/2022 pt is clinically is improving and right foot wound is improving as well no new complaint, wound culture is growing mrsa and plan for picc line and iv antibiotic upon discharge , pt is aware and is agreeable 09/13/2022 Patient generally doing well Wound VAC was discontinued by vascular surgery team Antibiotic was adjusted to IV vancomycin and Flagyl per ID team Patient will need PICC line which could not be done until Thursday09/14/2022 Patient with known new complaint, no pain. Left wound of the foot is healing slowly, wound VAC was discontinued yesterday Patient currently on Flagyl and IV vancomycin Plan for PICC line tomorrow in preparation for discharge 09/15/2022: I assumed care of the patient today. September 09 patient underwent a amputation of the right big toe. Also had a few days of wound VAC placed. Taken off during the weekend. Waiting for PICC line today. No pain. Appetite good. Has a clog shoe to keep weight off the front of the foot. Discussed with patient and the . Cultures positive for MRSA and anaerobic gram-negative. Blood cultures positive likely from skin contamination. Per Dr. Cuadra patient will not need a wound VAC. On examination: VITAL SIGNS: [98.3, 80, 16, 154/86, 99% room air] GENERAL APPEARANCE: BMI 32.1, sitting up in bed awake comfortable HEENT: Normal external appearance of nose and ear. Oral cavity normal EYES: Pupils equal. Conjunctiva normal. NECK: JVD not raised. Mass not palpable. RESPIRATORY: Respiratory effort normal. Lungs clear to auscultation. CARDIOVASCULAR: First and second sounds normal. No edema. ABDOMEN: Soft. Liver and spleen not palpable. No tenderness. No mass palpable. PSYCHIATRY: Alert and oriented x3. Mood and affect normal. EXTREMITY: Right foot in a dressing. Ray amputation INVESTIGATIONS, reviewed in the clinical context: Sodium 139 potassium 4.4 creatinine 0.89 white count 9.4 hemoglobin 8.9 platelets 309 CRP 12.2 Wound culture: MRSA. Blood culture: Staphylococcus epidermidis. Assessment and plan: -Right foot cellulitis and right foot diabetic ulcer status post a amputation right big toe , secondary to MRSA, having failed outpatient treatment Patient had a wound VAC for a few days.Clog shoes. Discharged on vancomycin and Flagyl. Wound care per Dr. Guzman. Follow with ID -Staph epidermidis, positive blood culture tlikely contaminant. -Normocytic anemia, stable and chronic Follow-up with PCP -Essential Hypertension Zestril -Obesity BMI 32.1 Weight loss measures -Hyperlipidemia Lipitor -Diabetes mellitus, type II, on oral hypoglycemic ozempic. Actos, metformin PICC line to be placed today. Patient be discharged on IV vancomycin and Flagyl. Discussed with case sealer patient and the .
[2022-09-15 20:20] LABS: Glucose,Whole Blood 131 mg/dL (70-110)
--- NOTE | 2022-09-15 23:05 | PN ---
PROGRESS NOTE Mr. Wong came with right foot wound involving the metatarsophalangeal joint with abscess formation. The patient went for the ray amputation. We kept him on VAC therapy for 4 days, but no drainage was noted. The patient is on IV antibiotic under the care of Infectious Disease. We have been treating the wound with Santyl cream and dressing we change daily. The patient had a PICC line placed today, going home tomorrow. Home care; wound should be cleaned and change the dressing with Santyl cream daily. The patient will come and see me coming Thursday at noon in my clinic. MMODL / IJN: [id number] /
[2022-09-16] MEDS ORDERED: VANCOMYCIN TROUGH DUE 1 EACH MISC MISCELLANE ONE (05:00)
[2022-09-16 07:20] LABS: Glucose,Whole Blood 109 mg/dL (70-110)
[2022-09-16] MEDS: VANCOMYCIN 1,500 MG in SODIUM CHLORIDE 0.9% 500 ML 500 ML IVPB SCH (07:27)
[2022-09-16 07:43] LABS: African American GFR (CKD) >90 (>60 ml/min/1.73 sqM); Non-African American GFR(CKD) 88 (>60 ml/min/1.73 sqM)
[2022-09-16] MEDS: INSULIN ASPART (NovoLOG) 100 UNIT/ML VIAL SQ SCH ×2 (09:15→12:30)
[2022-09-16] MEDS: metroNIDAZOLE 500 MG TAB PO SCH (11:44)
[2022-09-16] MEDS: FAMOTIDINE 20 MG TAB PO SCH (11:44)
[2022-09-16] MEDS: metFORMIN 500 MG TAB PO SCH (11:44)
[2022-09-16] MEDS: ATORVASTATIN 10 MG TAB PO SCH (11:44)
[2022-09-16] MEDS: lisinopriL 10 MG TAB PO SCH (11:44)
[2022-09-16] MEDS: PIOGLITAZONE 15 MG TAB PO SCH (11:45)
[2022-09-16] MEDS: HEPARIN SODIUM,PORCINE/PF 5,000 UNIT/0.5 ML SYRINGE SQ SCH (11:46)
[2022-09-16 12:13] LABS: Glucose,Whole Blood 109 mg/dL (70-110)
[2022-09-16] MEDS: COLLAGENASE 250 UNIT/GM OINTMENT 30 GM TUBE TOPICAL SCH (13:00)
[2022-09-16 13:36] VITALS: BP 163/91; PULSE 83; RESP 18; TEMP 98.2
--- NOTE | 2022-09-16 21:15 | P.DS ---
Providers Date of admission: 09/08/22 13:22 Expected date of discharge: 09/16/22 Attending physician: Anmol Patel Consults: 09/08/22 13:22 Consult Physician Routine Consulting Provider: Paul Aranda Consult Reason/Comments: foot ulcer Do you want consulting provider notified?: Yes Consult Physician Urgent Consulting Provider: Paco Guzman Consult Reason/Comments: foot ulcer Do you want consulting provider notified?: Yes 09/12/22 11:05 Consult Physician Urgent Consulting Provider: Hugh Larson Consult Reason/Comments: in pt rehab please Do you want consulting provider notified?: Yes Primary care physician: [facility] Course: patient is a 57-year-old gentleman with past medical history significant for diabetes mellitus, hypertension presented to the ER because of right foot ulcer. Patient stated that she was all right one Z-Meir started noticing an ulcer on his right foot. Over the few days he started noticing foul-smelling discharge. There was no complain of fever or chills. No complaint of nausea and vomiting. Patient was complaining of pain in his right foot as well associated with redness going up his right foot. Patient has history of prior left BKA. Because of this right foot ulcer, Patient came to the ER. In the ER, patient was worked up, initial white count was 11.1, hemoglobin 10.3, repeat blood count 93, sodium 137, potassium 4.4,. 09/11/2022 Patients with admitted with right foot cellulitis and infected ulcer and he underwent amputation of the right diabetic toe. Wound VAC in a Place Blood culture is growing MRSA and currently is covered with IV antibiotic with IV vancomycin per infectious disease team. Unasyn was discontinued Patient denies any other complaints. Creatinine is stable. Vitals and labs reviewed. 09/12/2022 pt is clinically is improving and right foot wound is improving as well no new complaint, wound culture is growing mrsa and plan for picc line and iv antibiotic upon discharge , pt is aware and is agreeable 09/13/2022 Patient generally doing well Wound VAC was discontinued by vascular surgery team Antibiotic was adjusted to IV vancomycin and Flagyl per ID team Patient will need PICC line which could not be done until Thursday09/14/2022 Patient with known new complaint, no pain. Left wound of the foot is healing slowly, wound VAC was discontinued yesterday Patient currently on Flagyl and IV vancomycin Plan for PICC line tomorrow in preparation for discharge 09/15/2022: I assumed care of the patient today. September 09 patient underwent a amputation of the right big toe. Also had a few days of wound VAC placed. Taken off during the weekend. Waiting for PICC line today. No pain. Appetite good. Has a clog shoe to keep weight off the front of the foot. Discussed with patient and the . Cultures positive for MRSA and anaerobic gram-negative. Blood cultures positive likely from skin contamination. Per Dr. Cuadra patient will not need a wound VAC. 09/16/2022: Patient doing well. No pain. No wound VAC. Has a PICC line in the right arm. Patient follow-up with Dr. Cuadra. Flagyl 500 mg 3 times a day for one month, per ID. Discussed with patient. On examination: VITAL SIGNS: [98.2, 83, 18, 163.91, 96% room air] GENERAL APPEARANCE: BMI 32.1, sitting up in bed awake comfortable HEENT: Normal external appearance of nose and ear. Oral cavity normal EYES: Pupils equal. Conjunctiva normal. NECK: JVD not raised. Mass not palpable. RESPIRATORY: Respiratory effort normal. Lungs clear to auscultation. CARDIOVASCULAR: First and second sounds normal. No edema. ABDOMEN: Soft. Liver and spleen not palpable. No tenderness. No mass palpable. PSYCHIATRY: Alert and oriented x3. Mood and affect normal. EXTREMITY: Right foot in a dressing. Ray amputation INVESTIGATIONS, reviewed in the clinical context: Sodium 139 potassium 4.4 creatinine 0.89 white count 9.4 hemoglobin 8.9 platelets 309 CRP 12.2 Wound culture: MRSA. Blood culture: Staphylococcus epidermidis. Assessment and plan: -Right foot cellulitis and right foot diabetic ulcer status post a amputation right big toe , secondary to MRSA, having failed outpatient treatment Patient had a wound VAC for a few days.Clog shoes. Discharged on and Flagyl for 1 month. Wound care per Dr. Guzman. Follow with ID -Staph epidermidis, positive blood culture tlikely contaminant. -Normocytic anemia, stable and chronic Follow-up with PCP -Essential Hypertension Zestril -Obesity BMI 32.1 Weight loss measures -Hyperlipidemia Lipitor -Diabetes mellitus, type II, on oral hypoglycemic ozempic. Actos, metformin -Full code Disposition: Home Plan - Discharge Summary Discharge Rx Participant: No New Discharge Prescriptions: New Collagenase [Santyl Ointment] 1 applic TOPICAL DAILY each Acetaminophen Tab [Tylenol] 650 mg PO Q6HR PRN tab PRN Reason: Mild Pain Or Fever > 100.5 metroNIDAZOLE [Flagyl] 500 mg PO TID #90 tab Continue Semaglutide [Ozempic] 1 mg SQ WE Pioglitazone [Actos] 15 mg PO DAILY lisinopriL [Zestril] 10 mg PO BID Atorvastatin [Lipitor] 10 mg PO DAILY metFORMIN HCL 1,000 mg PO BID Magnesium Oxide [Magnesium] 500 mg PO HS Discharge Medication List Atorvastatin [Lipitor] 10 mg PO DAILY 09/08/22 [History] Magnesium Oxide [Magnesium] 500 mg PO HS 09/08/22 [History] Pioglitazone [Actos] 15 mg PO DAILY 09/08/22 [History] Semaglutide [Ozempic] 1 mg SQ WE 09/08/22 [History] lisinopriL [Zestril] 10 mg PO BID 09/08/22 [History] metFORMIN HCL 1,000 mg PO BID 09/08/22 [History] Acetaminophen Tab [Tylenol] 650 mg PO Q6HR PRN tab 09/16/22 [Rx] Collagenase [Santyl Ointment] 1 applic TOPICAL DAILY each 09/16/22 [Rx] metroNIDAZOLE [Flagyl] 500 mg PO TID #90 tab 09/16/22 [Rx] Follow up Appointment(s)/Referral(s): [facility], [NON-STAFF] - 1 Week Adam Jama DO [Primary Care Provider] - 09/19/22 10:40 am [facility], [REFERRING] - 1 Week Wound Center[facility] [NON-STAFF] - 09/22/22 2:30 pm (Appt. with Dr. Guzman ) Paco Guzman MD [STAFF PHYSICIAN] - 1 Week (Patient to see Dr. Guzman in the wound center on Thursday09/22/22 at 2:30 ) Paul Aranda MD [STAFF PHYSICIAN] - 1 Week Patient Instructions/Handouts: Metronidazole (By mouth), Vancomycin (By injection), Debriding Agent (On the skin), Foot Care for People with Diabetes (DC), Type 2 Diabetes in the Older Adult (DC), Toe Amputation (DC) Activity/Diet/Wound Care/Special Instructions: Wound care-Santyl Cream followed by saline moistened 4x4, rolled gauze and rajeev wrap. Prescription for glucometer sent to [facility]. make sure that the pt get it on d/c please. Weekly lab work to Dr. Aranda...CMP, CBC, CRP, ESR. Discharge Disposition: HOME WITH HOME HEALTH SERVICES
[2022-09-17] MEDS ORDERED: VANCOMYCIN 1,750 MG in SODIUM CHLORIDE 0.9% 500 ML 500 ML IVPB SCH (02:00)
== END 2022-09-16 16:14 | disposition home health service (06) | DRG 854 ==
LOC: EC 12:35 → 5NMEDONC 13:22
PROVIDERS: ADMIT Hospitalist; ATTEND Hospitalist
PROC: 0Y6P0Z0 Detachment at Right 1st Toe, Complete, Open Approach (ICD-10-PCS; principal; 2022-09-09 07:30)
PROC: 02HV33Z Insertion of Infusion Device into Superior Vena Cava, Percutaneous Approach (ICD-10-PCS; 2022-09-15)
DX: A41.02 Sepsis due to Methicillin resistant Staphylococcus aureus (principal); I82.B22 Chronic embolism and thrombosis of left subclavian vein; L03.115 Cellulitis of right lower limb; M86.171 Other acute osteomyelitis, right ankle and foot; L97.514 Non-pressure chronic ulcer of other part of right foot with necrosis of bone; E11.42 Type 2 diabetes mellitus with diabetic polyneuropathy; E11.621 Type 2 diabetes mellitus with foot ulcer; E11.628 Type 2 diabetes mellitus with other skin complications; D50.9 Iron deficiency anemia, unspecified; I10 Essential (primary) hypertension; E66.9 Obesity, unspecified; E78.00 Pure hypercholesterolemia, unspecified; B95.62 Methicillin resistant Staphylococcus aureus infection as the cause of diseases classified elsewhere; Z68.32 Body mass index [BMI] 32.0-32.9, adult; Z86.14 Personal history of Methicillin resistant Staphylococcus aureus infection; Z89.512 Acquired absence of left leg below knee; Z79.899 Other long term (current) drug therapy; Z79.84 Long term (current) use of oral hypoglycemic drugs; Z79.85 Long-term (current) use of injectable non-insulin antidiabetic drugs
CPT/HCPCS: 36415; 36573; 80048; 80053; 80202; 82565; 83036; 83605; 85025; 85610; 85652; 85730; 86140; 87040; 87070; 87075; 87077; 87186; 87205; 88305; 88311; 93005; 96361; 96365; 96366; 96367; 99285

== ENCOUNTER 2022-10-27 12:43 | Day surgery (SDC) | payer BC, OTHER ==
[~2022-10-27 12:43] MED LIST: ALPRAZolam 0.25 MG TAB PO PRN; ASPIRIN 325 MG TAB PO PRN; SODIUM CHLORIDE 0.9% 1,000 ML in EMPTY BAG 1 BAG IV ONE
[2022-10-27] MEDS ORDERED: SODIUM CHLORIDE 0.9% 1,000 ML IV ONE (13:17)
[2022-10-27 13:38] VITALS: RESP 16
[2022-10-27 13:39] LABS: Glucose,Whole Blood 120 mg/dL (70-110)
[2022-10-27] MEDS ORDERED: LIDOCAINE 1% INJ 10MG/ML (20 ML MDV) ONE (16:11)
[2022-10-27] MEDS ORDERED: fentaNYL (PF) 50 MCG/ML 2 ML AMP ONE (16:11)
[2022-10-27] MEDS ORDERED: LIDOCAINE 1% INJ 10MG/ML (30 ML VIAL-PF) SQ ONE (16:24)
[2022-10-27] MEDS ORDERED: MIDAZOLAM 2 MG/2 ML VIAL IV ONE (16:33)
[2022-10-27] MEDS ORDERED: fentaNYL (PF) 50 MCG/1 ML VIAL IV ONE (16:33)
[2022-10-27] MEDS: HEPARIN SODIUM 1,000 UN/ML (10ML VL) IV ONE ×2 (17:01→17:52)
[2022-10-27] MEDS: NITROGLYCERIN 1000MCG/10ML SYRINGE INTRAARTER ONE ×2 (17:04→17:36)
[2022-10-27] MEDS ORDERED: IOPAMIDOL-370 100ML BTL INJ ONE (17:56)
--- NOTE | 2022-10-27 18:20 | P.OP ---
Date of Procedure: 10/27/22 Description of Procedure: Pre-Op Dx: Right lower extremity critical limb ischemia [place] classification 6, anterior, posterior tibial artery occlusion Post-Op Dx: Same Procedure: 1. Ultrasound guided left femoral artery access 2. Aortogram with right lower extremity selective angiogram 3. Percutaenous balloon angioplasty of the right anterior tibial artery with 2.5 x 120 mm chocolate balloon, 2.0 by 120 mm Wittmann balloon 5. Percutaneous closure of left femoral artery with Vascade device Surgeon: Siva Pratt DO Anesthesia: conscious sedation with local x 94 mins EBL: 10 mL Complications: none Condition: Stable Findings: 80% improved flow anterior tibial artery. Unable to cross the posterior tibial or peroneal due to lack of reconstitution Indication for procedure: 57-year-old gentleman with history of type 2 diabetes previous left below-knee amputation and recent gangrene of his toe which he underwent amputation by Dr. Guzman. He also had an angiogram at that time at [facility] which demonstrated below knee occlusive disease with anterior tibial artery occlusion as well as posterior tibial artery occlusion. There was distal reconstitution of the anterior tibial artery and therefore he presents today for revascularization. Operative narrative: After written and informed consent was obtained the patient all risks, benefits and complications were described patient is brought to the [employer] Team Lead and laid supine position. The area of the left groin was prepped and draped in usual sterile fashion. Timeout was performed in normal fashion. Utilizing ultrasound the left femoral artery was accessed and a 6 F sheath was placed. 035 Glidewire was then placed into the aorta followed by an RBI catheter and the right iliac was accessed in an up and over fashion. Selective angiogram was then obtained of the right lower extremity demonstrating patent femoral and popliteal arteries with anterior tibial artery occlusion just after takeoff with reconstitution towards the ankle. Complete occlusion of the posterior tibial and peroneal after the tibial peroneal trunk. Large amount of collaterals were noted.. Patient was given heparin and followed with ACTs. An 035 Glidewire advantage was then placed in an up and over fashion and the 6 F short sheath was removed and replaced with an up and over 6 F sheath. Utilizing 035 Glidewire, quick cross catheter and a 014 wire the anterior tibial lesion was crossed and selective angiogram distally was obtained demonstrating good intraluminal access. Once completed angiogram was obtained demonstrating improvement of the stenotic area. Balloon angioplasty was then performed with a 2.5 x 120 mm chocolate balloon and 2.0 x 120 mm Wittmann balloon distally with improved flow to the foot. Final angiogram demonstrated patent anterior tibial artery with filling of the foot to the great toe. Attempt was then placed crossing the posterior tibial or peroneal arteries. Unable to cross the lesion after multiple attempts with multiple different wires and catheters. There was no reconstitution noted and many collateralization vessels to the foot noted. All guidewires and catheters were then removed the sheath was removed and replaced with a short 6 F sheath and utilizing a Vascade closure device the access was closed. Pressure was placed for hemostasis. The patient tolerated the procedure well and had palpable femoral pulses and multiphasic dp signal and was sent to recovery.
[2022-10-27 19:41] LABS: Glucose,Whole Blood 104 mg/dL (70-110)
[2022-10-27 21:45] VITALS: BP 163/96; PULSE 87; TEMP 97.4
--- NOTE | 2022-10-28 08:23 | IR ---
EXAMINATION TYPE: IR pilot captain femoral popliteal DATE OF EXAM: 10/27/2022 COMPARISON: NONE HISTORY: Fluoroscopy time. Fluoroscopy was provided to the referring clinician.
== END 2022-10-27 23:07 | disposition home or self-care (01) ==
LOC: CATHCVL 12:43 → 6NMEDSUR 17:56 → CATHCVL 23:07
PROVIDERS: ATTEND Surgery
DX: I70.221 Atherosclerosis of native arteries of extremities with rest pain, right leg (principal); E11.9 Type 2 diabetes mellitus without complications; Z89.512 Acquired absence of left leg below knee
CPT/HCPCS: 37228; 75625; 75710; 76937; C1894 ×2; C1769 ×4; C1887; C1725 ×2; J2250; J2001; J1644; Q9967; J3010

== ENCOUNTER 2023-01-20 18:28 | Inpatient (IN) | payer BC, OTHER ==
[2023-01-20] MEDS ORDERED: SODIUM CHLORIDE 0.9% 1,000 ML IV STA ×3 (18:57→22:40)
[2023-01-20] MEDS ORDERED: ONDANSETRON 4 MG/2 ML VIAL IVP STA (18:59)
[2023-01-20] MEDS ORDERED: KETOROLAC 15 MG/ML 1 ML VIAL IVP STA (19:05)
[2023-01-20 19:15] LABS: Glucose,Whole Blood 181 mg/dL (70-110)
[2023-01-20 19:31] LABS: Basophils % (A) 0 %; Eosinophils % (A) 0 %; HCT 35.1 % (39.0-53.0); HGB 11.8 gm/dL (13.0-17.5); Lymphocytes # (A) 0.5 k/uL (1.0-4.8); Lymphocytes % (A) 5 %; MCH 30.2 pg (25.0-35.0); MCHC 33.5 g/dL (31.0-37.0); MCV 90.1 fL (80.0-100.0); Mean Platelet Volume 8.1; Monocytes # (A) 0.4 k/uL (0-1.0); Monocytes % (A) 4 %; Neutrophils # (A) 9.6 k/uL (1.3-7.7); Neutrophils % (A) 90 %; Platelet Count 259 k/uL (150-450); RBC 3.89 m/uL (4.30-5.90); RDW 14.7 % (11.5-15.5); WBC 10.6 k/uL (3.8-10.6)
[2023-01-20 19:40] LABS: VBG PH 7.34 (7.31-7.41)
[2023-01-20 20:11] LABS: ALT 17 U/L (4-49); AST 20 U/L (17-59); African American GFR (CKD) 10 (>60 ml/min/1.73 sqM); Albumin 4.5 g/dL (3.5-5.0); Alkaline Phosphatase 81 U/L (38-126); Anion Gap 22 mmol/L; Blood Urea Nitrogen 56 mg/dL (9-20); Calcium 9.9 mg/dL (8.4-10.2); Carbon Dioxide 14 mmol/L (22-30); Chloride 103 mmol/L (98-107); Glucose 190 mg/dL (74-99); Lipase 281 U/L (23-300); Non-African American GFR(CKD) 9 (>60 ml/min/1.73 sqM); Potassium 5.4 mmol/L (3.5-5.1); Sodium 139 mmol/L (137-145); Total Bilirubin 0.7 mg/dL (0.2-1.3); Total Protein 7.8 g/dL (6.3-8.2)
--- NOTE | 2023-01-20 20:54 | CT ---
EXAMINATION TYPE: CT abdomen pelvis wo con CT DLP: 908.9 mGycm, Automated exposure control for dose reduction was used. DATE OF EXAM: 01/20/2023 8:37 PM COMPARISON: None CLINICAL INDICATION:Male, 57 years old with history of lower abd pain, vomiting; ABDOMINAL PAIN, N, V TECHNIQUE: Axial CT of the abdomen and pelvis. Sagittal and coronal reformats were created on a [employer] workstation. Contrast used: mL of , (none if empty) Oral contrast used: without Oral Contrast (none if empty) FINDINGS: LOWER CHEST: Unremarkable ABDOMEN LIVER: Unremarkable GALLBLADDER AND BILE DUCTS: Unremarkable. PANCREAS: Unremarkable. SPLEEN: Unremarkable. ADRENAL GLANDS: Unremarkable. KIDNEYS AND URETERS: No obstructing bilateral renal calculi measuring up to 3 mm. No evidence of obst ructive uropathy. PELVIS BLADDER: Unremarkable REPRODUCTIVE: Unremarkable. ABDOMEN & PELVIS STOMACH AND BOWEL: No evidence of bowel obstruction. The appendix is normal PERITONEUM/RETROPERITONEUM: No evidence of pneumoperitoneum or free fluid. VASCULATURE: Moderate atherosclerotic calcifications are present throughout the abdominal aorta and i ts branches. No evidence of aortic aneurysm. MUSCULOSKELETAL: No acute osseous abnormalities, multilevel disc degeneration changes of the spine wi th osteophyte formation of the sacrum. Moderate degeneration changes of the hips with osteophyte form ation. LYMPH NODES: No gross evidence for lymphadenopathy. SOFT TISSUE/ABDOMINAL WALL: Fat-containing inguinal hernias. IMPRESSION: No evidence for acute abdominal process. No evidence for bowel obstruction.
[2023-01-20 22:57] LABS: Appearance,Urine Cloudy (Clear); Bacteria,Urine Rare /hpf; Bilirubin,Urine Negative (Negative); Blood,Urine Small (Negative); Color,Urine Light Red; Glucose,Urine (UA) Trace (Negative); Ketones,Urine Trace (Negative); Leukocyte Esterase,Urine Negative (Negative); Mucus,Urine Rare /hpf; Nitrite,Urine Negative (Negative); Protein,Urine 1+ (Negative); RBC,Urine 1 /hpf (0-5); Specific Gravity,Urine 1.013 (1.001-1.035); Urobilinogen,Urine <2.0 mg/dL (<2.0); WBC,Urine 2 /hpf (0-5)
[2023-01-20] MEDS ORDERED: INSULIN REGULAR 100 UNIT/ML VIAL (IV) IV ONE (23:01)
[2023-01-20] MEDS ORDERED: NALOXONE 0.4 MG/ML 1 ML VIAL IV PRN (23:09)
[2023-01-20] MEDS ORDERED: DEXTROSE 50% SYRINGE 50 ML IVP PRN ×2 (23:09)
[2023-01-20] MEDS ORDERED: ONDANSETRON 4 MG/2 ML VIAL IVP PRN (23:09)
[2023-01-20] MEDS ORDERED: PROCHLORPERAZINE INJ 10 MG/2 ML VIAL IVP STA (23:11)
[2023-01-20 23:18] LABS: Glucose,Whole Blood 163 mg/dL (70-110)
--- NOTE | 2023-01-21 00:29 | ED ---
Nausea/Vomiting/Diarrhea HPI - General Chief complaint: Nausea/Vomiting/Diarrhea Stated complaint: Dehydration,Vomiting,Nausea Time Seen by Provider: 01/20/23 18:57 Source: patient Mode of arrival: wheelchair Limitations: physical limitation - History of Present Illness Initial comments: Patient is a 57 -year-old male who presents to the emergency department for vomiting. Patient reports 5-7 episodes of vomiting daily for the past 3 days, nonbloody. Patient feels dehydrated. He has had a little water and oral intake. He has mild abdominal pain in the lower abdomen. Denies constipation, blood in stool. Did have 1 episode of diarrhea today. He denies fever, chills, upper respiratory symptoms. Patient is diabetic. He does not check his blood sugar home. - Related Data Home Medications Medication Instructions Recorded Confirmed Atorvastatin [Lipitor] 10 mg PO HS 09/08/22 10/27/22 Magnesium Oxide [Magnesium] 500 mg PO HS 09/08/22 10/27/22 Pioglitazone [Actos] 15 mg PO DAILY 09/08/22 10/27/22 Semaglutide [Ozempic] 1 mg SQ WE 09/08/22 10/27/22 lisinopriL [Zestril] 10 mg PO BID 09/08/22 10/27/22 metFORMIN HCL 1,000 mg PO BID 09/08/22 10/27/22 Clopidogrel [Plavix] 1 tab PO DAILY 10/27/22 10/27/22 Vancomycin 2,000 mg IVPB Q24HR 10/27/22 10/27/22 Previous Rx's Medication Instructions Recorded Acetaminophen Tab [Tylenol] 650 mg PO Q6HR PRN tab 09/16/22 Collagenase [Santyl Ointment] 1 applic TOPICAL DAILY each 09/16/22 metroNIDAZOLE [Flagyl] 500 mg PO TID #90 tab 09/16/22 Allergies Allergy/AdvReac Type Severity Reaction Status Date / Time No Known Allergies Allergy Verified 01/20/23 18:45 Review of Systems ROS Statement: Those systems with pertinent positive or pertinent negative responses have been documented in the HPI. ROS Other: All systems not noted in ROS Statement are negative. Past Medical History Past Medical History: Diabetes Mellitus, Hyperlipidemia, Hypertension, Vascular Disorder Additional Past Medical History / Comment(s): september 09 rt great toe amputatied has wound care there History of Any Multi-Drug Resistant Organisms: MRSA Date of last positivie culture/infection: 09/09/22 MDRO Source:: Right Foot Past Surgical History: Orthopedic Surgery, Tonsillectomy Additional Past Surgical History / Comment(s): BKA -2019 lft, rt great toe amp, lft knee arthroscopy Past Anesthesia/Blood Transfusion Reactions: No Reported Reaction Additional Past Anesthesia/Blood Transfusion Reaction / Comment(s): no blood transfusion hx Past Psychological History: No Psychological Hx Reported Smoking Status: Never smoker - Past Family History Mother Family Medical History: Cancer Additional Family Medical History / Comment(s): unknown General Exam Limitations: physical limitation General appearance: alert Respiratory exam: Present: normal lung sounds bilaterally. Absent: respiratory distress, wheezes, rales, rhonchi, stridor Cardiovascular Exam: Present: regular rate, normal rhythm, normal heart sounds. Absent: systolic murmur, diastolic murmur, rubs, gallop, clicks GI/Abdominal exam: Present: soft, tenderness (mild, RLQ, LLQ), normal bowel sounds. Absent: distended, guarding, rebound, rigid Neurological exam: Present: alert Skin exam: Present: warm, dry, intact, normal color. Absent: rash Course Vital Signs 01/20/23 01/20/23 01/20/23 18:42 21:00 22:00 Temperature 98.9 F Pulse Rate 110 H 99 107 H Respiratory 18 16 22 Rate Blood Pressure 123/77 155/86 150/87 O2 Sat by Pulse 98 96 96 Oximetry 01/20/23 01/21/23 23:00 00:00 Temperature Pulse Rate 96 93 Respiratory 23 14 Rate Blood Pressure 149/99 149/87 O2 Sat by Pulse 97 95 Oximetry Medical Decision Making - Medical Decision Making Was pt. sent in by a medical professional or institution (, PA, NEEDLE STRAIGHTENER, urgent care, hospital, or longterm...) When possible be specific @ -No Did you speak to anyone other than the patient for history (EMS, parent, family, police, friend...)? What history was obtained from this source @ -No Did you review nursing and triage notes (agree or disagree)? Why? @ -I reviewed and agree with nursing and triage notes Were old charts reviewed (outside hosp., previous admission, EMS record, old EKG, old radiological studies, urgent care reports/EKG's, longterm records)? Report findings @ -No old charts were reviewed Differential Diagnosis (chest pain, altered mental status, abdominal pain women, abdominal pain men, vaginal bleeding, weakness, fever, dyspnea, syncope, headache, dizziness, GI bleed, back pain, seizure, CVA, palpatations, mental health)? @ -Differential Abdominal Pain Men: Appendicitis, cholecystitis, diverticulosis, ischemic bowel, pancreatitis, hepatitis, UTI, gastroenteritis, AAA, incarcerated hernia, bowel obstruction, constipation, inflammatory bowel, hepatitis, peptic ulcer disease, splenic infarction, perforated viscus, testicular torsion, this is not meant to be an all-inclusive list EKG interpreted by me (3pts min.). @ -As above X-rays interpreted by me (1pt min.). @ -None done CT interpreted by me (1pt min.). @ -No acute intra-abdominal process U/S interpreted by me (1pt. min.). @ -None done What testing was considered but not performed or refused? (CT, X-rays, U/S, labs)? Why? @ -None What meds were considered but not given or refused? Why? @ -None Did you discuss the management of the patient with other professionals (professionals i.e. , PA, NEEDLE STRAIGHTENER, lab, RT, psych nurse, social studies department chair, optometric assistant, teacher, founder and chief executive officer, lining caser)? Give summary @ -No Was smoking cessation discussed for >3mins.? @ -No Was critical care preformed (if so, how long)? @ -No Were there social determinants of health that impacted care today? How? (Homelessness, low income, unemployed, alcoholism, drug addiction, transp ortation, low edu. Level, literacy, decrease access to med. care, prison, rehab)? @ -No Was there de-escalation of care discussed even if they declined (Discuss DNR or withdrawal of care, Hospice)? DNR status @ -No What co-morbidities impacted this encounter? (DM, HTN, Smoking, COPD, CAD, Cancer, CVA, ARF, Chemo, Hep., AIDS, mental health diagnosis, sleep apnea, morbid obesity)? @ -None Was patient admitted / discharged? Hospital course, mention meds given and route, prescriptions, significant lab abnormalities, going to OR and other pertinent info. @ -Admitted for acute renal failure with suspected prerenal etiology secondary to vomiting/poor oral intake. Dr. Patel accepts admission Undiagnosed new problem with uncertain prognosis? @ -No Drug Therapy requiring intensive monitoring for toxicity (Heparin, Nitro, Insulin, Cardizem)? @ -No Were any procedures done? @ -No Diagnosis/symptom? @ -Acute renal failure, vomiting, dehydration Acute, or Chronic, or Acute on Chronic? @ -Acute Uncomplicated (without systemic symptoms) or Complicated (systemic symptoms)? @ -Uncomplicated Side effects of treatment? @ -No Exacerbation, Progression, or Severe Exacerbation? @ -No Poses a threat to life or bodily function? How? (Chest pain, [place], [place], pneumonia, PE, COPD, DKA, ARF, appy, cholecystitis, CVA, Diverticulitis, Homicidal, Suicidal, threat to staff... and all critical care pts) @ -No Dr. Clemente is my attending - Lab Data Result diagrams: 01/20/23 19:10 01/20/23 19:10 Lab Results 01/20/23 01/20/23 01/20/23 Range/Units 19:10 19:10 19:10 WBC 10.6 (3.8-10.6) k/uL RBC 3.89 L (4.30-5.90) m/uL Hgb 11.8 L (13.0-17.5) gm/dL Hct 35.1 L (39.0-53.0) % MCV 90.1 (80.0-100.0) fL MCH 30.2 (25.0-35.0) pg MCHC 33.5 (31.0-37.0) g/dL RDW 14.7 (11.5-15.5) % Plt Count 259 (150-450) k/uL MPV 8.1 Neutrophils % 90 % Lymphocytes % 5 % Monocytes % 4 % Eosinophils % 0 % Basophils % 0 % Neutrophils # 9.6 H (1.3-7.7) k/uL Lymphocytes # 0.5 L (1.0-4.8) k/uL Monocytes # 0.4 (0-1.0) k/uL Eosinophils # 0.0 (0-0.7) k/uL Basophils # 0.0 (0-0.2) k/uL VBG pH (7.31-7.41) VBG pCO2 (37-51) mmHg VBG HCO3 (24-28) mmol/L Sodium 139 (137-145) mmol/L Potassium 5.4 H (3.5-5.1) mmol/L Chloride 103 (98-107) mmol/L Carbon Dioxide 14 L (22-30) mmol/L Anion Gap 22 mmol/L BUN 56 H (9-20) mg/dL Creatinine 6.46 H (0.66-1.25) mg/dL Est GFR (CKD-EPI)AfAm 10 (>60 ml/min/1.73 sqM) Est GFR (CKD-EPI)NonAf 9 (>60 ml/min/1.73 sqM) Glucose 190 H (74-99) mg/dL POC Glucose (mg/dL) (70-110) mg/dL POC Glu Filler Sifter Machine ID Plasma Lactic Acid Hiro (0.7-2.0) mmol/L Calcium 9.9 (8.4-10.2) mg/dL Total Bilirubin 0.7 (0.2-1.3) mg/dL AST 20 (17-59) U/L ALT 17 (4-49) U/L Alkaline Phosphatase 81 (38-126) U/L Total Protein 7.8 (6.3-8.2) g/dL Albumin 4.5 (3.5-5.0) g/dL Lipase 281 (23-300) U/L Urine Color Light Red Urine Appearance Cloudy (Clear) Urine pH 5.0 (5.0-8.0) Ur Specific [place] 1.013 (1.001-1.035) Urine Protein 1+ H (Negative) Urine Glucose (UA) Trace H (Negative) Urine Ketones Trace H (Negative) Urine Blood Small H (Negative) Urine Nitrite Negative (Negative) Urine Bilirubin Negative (Negative) Urine Urobilinogen <2.0 (<2.0) mg/dL Ur Leukocyte Esterase Negative (Negative) Urine RBC 1 (0-5) /hpf Urine WBC 2 (0-5) /hpf Urine Bacteria Rare H (None) /hpf Urine Mucus Rare H (None) /hpf Acetone, Qual Positive (Negative) 01/20/23 01/20/23 01/20/23 Range/Units 19:10 19:10 19:13 WBC (3.8-10.6) k/uL RBC (4.30-5.90) m/uL Hgb (13.0-17.5) gm/dL Hct (39.0-53.0) % MCV (80.0-100.0) fL MCH (25.0-35.0) pg MCHC (31.0-37.0) g/dL RDW (11.5-15.5) % Plt Count (150-450) k/uL MPV Neutrophils % % Lymphocytes % % Monocytes % % Eosinophils % % Basophils % % Neutrophils # (1.3-7.7) k/uL Lymphocytes # (1.0-4.8) k/uL Monocytes # (0-1.0) k/uL Eosinophils # (0-0.7) k/uL Basophils # (0-0.2) k/uL VBG pH 7.34 (7.31-7.41) VBG pCO2 37 (37-51) mmHg VBG HCO3 20 L (24-28) mmol/L Sodium (137-145) mmol/L Potassium (3.5-5.1) mmol/L Chloride (98-107) mmol/L Carbon Dioxide (22-30) mmol/L Anion Gap mmol/L BUN (9-20) mg/dL Creatinine (0.66-1.25) mg/dL Est GFR (CKD-EPI)AfAm (>60 ml/min/1.73 sqM) Est GFR (CKD-EPI)NonAf (>60 ml/min/1.73 sqM) Glucose (74-99) mg/dL POC Glucose (mg/dL) 181 H (70-110) mg/dL POC Glu Filler Sifter Machine ID Cheryl Butt Plasma Lactic Acid Hiro 1.3 (0.7-2.0) mmol/L Calcium (8.4-10.2) mg/dL Total Bilirubin (0.2-1.3) mg/dL AST (17-59) U/L ALT (4-49) U/L Alkaline Phosphatase (38-126) U/L Total Protein (6.3-8.2) g/dL Albumin (3.5-5.0) g/dL Lipase (23-300) U/L Urine Color Urine Appearance (Clear) Urine pH (5.0-8.0) Ur Specific [place] (1.001-1.035) Urine Protein (Negative) Urine Glucose (UA) (Negative) Urine Ketones (Negative) Urine Blood (Negative) Urine Nitrite (Negative) Urine Bilirubin (Negative) Urine Urobilinogen (<2.0) mg/dL Ur Leukocyte Esterase (Negative) Urine RBC (0-5) /hpf Urine WBC (0-5) /hpf Urine Bacteria (None) /hpf Urine Mucus (None) /hpf Acetone, Qual (Negative) 01/20/23 Range/Units 23:15 WBC (3.8-10.6) k/uL RBC (4.30-5.90) m/uL Hgb (13.0-17.5) gm/dL Hct (39.0-53.0) % MCV (80.0-100.0) fL MCH (25.0-35.0) pg MCHC (31.0-37.0) g/dL RDW (11.5-15.5) % Plt Count (150-450) k/uL MPV Neutrophils % % Lymphocytes % % Monocytes % % Eosinophils % % Basophils % % Neutrophils # (1.3-7.7) k/uL Lymphocytes # (1.0-4.8) k/uL Monocytes # (0-1.0) k/uL Eosinophils # (0-0.7) k/uL Basophils # (0-0.2) k/uL VBG pH (7.31-7.41) VBG pCO2 (37-51) mmHg VBG HCO3 (24-28) mmol/L Sodium (137-145) mmol/L Potassium (3.5-5.1) mmol/L Chloride (98-107) mmol/L Carbon Dioxide (22-30) mmol/L Anion Gap mmol/L BUN (9-20) mg/dL Creatinine (0.66-1.25) mg/dL Est GFR (CKD-EPI)AfAm (>60 ml/min/1.73 sqM) Est GFR (CKD-EPI)NonAf (>60 ml/min/1.73 sqM) Glucose (74-99) mg/dL POC Glucose (mg/dL) 163 H (70-110) mg/dL POC Glu Filler Sifter Machine ID Byron Bryson Plasma Lactic Acid Hiro (0.7-2.0) mmol/L Calcium (8.4-10.2) mg/dL Total Bilirubin (0.2-1.3) mg/dL AST (17-59) U/L ALT (4-49) U/L Alkaline Phosphatase (38-126) U/L Total Protein (6.3-8.2) g/dL Albumin (3.5-5.0) g/dL Lipase (23-300) U/L Urine Color Urine Appearance (Clear) Urine pH (5.0-8.0) Ur Specific [place] (1.001-1.035) Urine Protein (Negative) Urine Glucose (UA) (Negative) Urine Ketones (Negative) Urine Blood (Negative) Urine Nitrite (Negative) Urine Bilirubin (Negative) Urine Urobilinogen (<2.0) mg/dL Ur Leukocyte Esterase (Negative) Urine RBC (0-5) /hpf Urine WBC (0-5) /hpf Urine Bacteria (None) /hpf Urine Mucus (None) /hpf Acetone, Qual (Negative) Disposition Clinical Impression: Acute renal failure, Vomiting, Dehydration Disposition: ADMITTED IP TO THIS [facility] Condition: Fair Referrals: Adam Jama DO [Primary Care Provider] - 1-2 days
[2023-01-21 07:44] LABS: Glucose,Whole Blood 116 mg/dL (70-110)
[2023-01-21] MEDS ORDERED: DEXTROSE 50% SYRINGE 50 ML IVP PRN ×2 (10:54)
[2023-01-21] MEDS ORDERED: PIOGLITAZONE 15 MG TAB PO SCH (11:00)
[2023-01-21] MEDS ORDERED: metFORMIN 500 MG TAB PO SCH (11:00)
[2023-01-21] MEDS ORDERED: lisinopriL 10 MG TAB PO SCH (11:00)
[2023-01-21] MEDS ORDERED: ATORVASTATIN 10 MG TAB PO SCH (11:00)
[2023-01-21] MEDS: ATORVASTATIN 10 MG TAB PO SCH (11:14)
[2023-01-21] MEDS: SODIUM CHLORIDE 0.45% 1,000 ML IV SCH ×2 (11:47→19:37)
[2023-01-21 12:34] LABS: Glucose,Whole Blood 121 mg/dL (70-110)
[2023-01-21] MEDS: INSULIN ASPART (NovoLOG) 100 UNIT/ML VIAL SQ SCH ×2 (12:41→17:30)
[2023-01-21 13:32] LABS: African American GFR (CKD) 15 (>60 ml/min/1.73 sqM); Anion Gap 16 mmol/L; Blood Urea Nitrogen 55 mg/dL (9-20); Calcium 9.5 mg/dL (8.4-10.2); Carbon Dioxide 16 mmol/L (22-30); Chloride 107 mmol/L (98-107); Glucose 138 mg/dL (74-99); Non-African American GFR(CKD) 13 (>60 ml/min/1.73 sqM); Potassium 4.5 mmol/L (3.5-5.1); Sodium 139 mmol/L (137-145)
[2023-01-21] MEDS: prednisoLONE ACETATE 1% OPHTH DROPS 5 ML BTL BOTH EYES SCH ×3 (13:40→20:39)
[2023-01-21] MEDS: KETOROLAC 0.5% OPHTH DROPS 5 ML BTL BOTH EYES SCH ×3 (13:49→20:40)
[2023-01-21] MEDS: ASPIRIN 81 MG PO SCH (14:28)
[2023-01-21] MEDS: CLOPIDOGREL 75 MG TAB PO SCH (14:28)
[2023-01-21] MEDS ORDERED: NON FORMULARY DRUG (Aspirin Ec 81 MG Tablet) PO SCH (14:30)
[2023-01-21 16:53] LABS: Glucose,Whole Blood 133 mg/dL (70-110)
[2023-01-21] MEDS: COLLAGENASE 250 UNIT/GM OINTMENT 30 GM TUBE TOPICAL SCH (18:00)
[2023-01-21 20:16] LABS: Glucose,Whole Blood 152 mg/dL (70-110)
[2023-01-21] MEDS: DEXTROSE 5% IN WATER 1,000 ML with SODIUM BICARB (1 MEQ/ML) 150 ML IV SCH (20:35)
--- NOTE | 2023-01-21 22:15 | P.HPIM ---
History of Present Illness H&P Date: 01/21/23 Chief Complaint: Nausea vomiting patient is a 57-year-old gentleman , who follows with Dr. Jama. Patient presents with about 3 days of vomiting. Abdominal pain on and off. Having bowel movements. No fever no chills. In August 2022 patient underwent amputation of the right big toe. By Dr. Cuadra. Does follow with him at the wound care center. Patient found an acute kidney injury in the ER. Started on IV fluids. Feeling slightly better this morning. Tired. Dizzy lightheaded. Review of systems: GEN.: Tired decreased appetite EYES: None HEENT: None NECK: None RESPIRATORY: None CARDIOVASCULAR: None GASTROINTESTINAL: As above GENITOURINARY: None MUSCULOSKELETAL: Amputation] LYMPHATICS: None HEMATOLOGICAL: None PSYCHIATRY: None NEUROLOGICAL: None Past medical history to include: Chronic anemia, essential hypertension, hyperlipidemia, diabetes mellitus type 2, right big toe amputation August 2022 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 Oral cavity normal EYES: Pupils equal. Conjunctiva normal. NECK: JVD not raised. Mass not palpable. RESPIRATORY: Respiratory effort normal. Lungs clear to auscultation. CARDIOVASCULAR: First and second sounds normal. No edema. ABDOMEN: Soft. Liver and spleen not palpable. No tenderness. No mass palpable. PSYCHIATRY: Alert and oriented x3. Mood and affect tired EXTREMITY: Right foot in a dressing. Ray amputation INVESTIGATIONS, reviewed in the clinical context: January 20: White count 10.6 hemoglobin 11.8 platelets 259 sodium 139 potassium 5.4 BUN 56 creatinine 6.46. Acetone positive. Bicarbonate 14. CT abdomen pelvis:no evidence of any acute process. Assessment and plan: -Acute diabetic ketoacidosis. IV fluids. Insulin. -Right foot wound with re-amputation of the big toe in August 2022. Being followed by Dr. Cuadra. Consult Dr. Cuadra. Wound care. -Acute kidney injury, combination of ATN, prerenal. From decreased oral intake and medications thereof. IV fluids. Repeat labs. -Normocytic anemia, stable and chronic Follow-up with PCP -Essential Hypertension Hold Zestril. -Obesity BMI 30.2 Weight loss measures -Hyperlipidemia Lipitor -Diabetes mellitus, type II, on oral hypoglycemic Hold oral hypoglycemics for now. Follow Accu-Cheks. Given the complexity and severity of patient's condition expect the patient to be in the hospital at least for 2 overnights Past Medical History Past Medical History: Diabetes Mellitus, Hyperlipidemia, Hypertension, Vascular Disorder Additional Past Medical History / Comment(s): september 09 rt great toe amputatied has wound care there History of Any Multi-Drug Resistant Organisms: MRSA Date of last positivie culture/infection: 09/09/22 MDRO Source:: Right Foot Past Surgical History: Orthopedic Surgery, Tonsillectomy Additional Past Surgical History / Comment(s): BKA -2019 lft, rt great toe amp, lft knee arthroscopy Past Anesthesia/Blood Transfusion Reactions: No Reported Reaction Additional Past Anesthesia/Blood Transfusion Reaction / Comment(s): no blood transfusion hx Past Psychological History: No Psychological Hx Reported Smoking Status: Never smoker - Past Family History Mother Family Medical History: Cancer Additional Family Medical History / Comment(s): unknown Medications and Allergies Home Medications Medication Instructions Recorded Confirmed Type Atorvastatin [Lipitor] 10 mg PO QAM 09/08/22 01/21/23 History Pioglitazone [Actos] 15 mg PO QAM 09/08/22 01/21/23 History Semaglutide [Ozempic] 1 mg SQ WE@1430 09/08/22 01/21/23 History lisinopriL [Zestril] 10 mg PO BID 09/08/22 01/21/23 History metFORMIN HCL 1,000 mg PO BID 09/08/22 01/21/23 History Clopidogrel [Plavix] 75 mg PO DAILY@1430 10/27/22 01/21/23 History Aspirin EC [Ecotrin Low Dose] 81 mg PO DAILY@1430 01/21/23 01/21/23 History Collagenase [Santyl Ointment] 1 applic TOPICAL AC-SUPPER 01/21/23 01/21/23 History Ketorolac 0.5% Ophth Soln [Acular 1 drop BOTH EYES QID 01/21/23 01/21/23 History 0.5%] prednisoLONE ACETATE 1% OPHTH 1 drop BOTH EYES QID 01/21/23 01/21/23 History [Pred Forte 1%] Allergies Allergy/AdvReac Type Severity Reaction Status Date / Time No Known Allergies Allergy Verified 01/21/23 07:26 Physical Exam Vitals: Vital Signs Temp Pulse Resp BP Pulse Ox 01/21/23 09:00 99 18 131/74 96 01/21/23 07:19 98.3 F 98 18 151/89 95 01/21/23 05:00 90 13 139/83 95 01/21/23 04:00 84 12 117/64 95 01/21/23 03:00 85 12 104/60 95 01/21/23 02:00 95 11 L 137/76 95 01/21/23 01:00 98 18 117/66 95 01/21/23 00:00 93 14 149/87 95 01/20/23 23:00 96 23 149/99 97 01/20/23 22:00 107 H 22 150/87 96 01/20/23 21:00 99 16 155/86 96 01/20/23 18:42 98.9 F 110 H 18 123/77 98 Intake and Output 01/20/23 01/21/23 01/21/23 22:59 06:59 14:59 Other: Weight 106.594 kg Results CBC & Chem 7: 01/20/23 19:10 01/21/23 13:05 Labs: Abnormal Lab Results - Last 24 Hours (Table) 01/20/23 01/20/23 01/20/23 Range/Units 19:10 19:10 19:10 RBC 3.89 L (4.30-5.90) m/uL Hgb 11.8 L (13.0-17.5) gm/dL Hct 35.1 L (39.0-53.0) % Neutrophils # 9.6 H (1.3-7.7) k/uL Lymphocytes # 0.5 L (1.0-4.8) k/uL VBG HCO3 (24-28) mmol/L Potassium 5.4 H (3.5-5.1) mmol/L Carbon Dioxide 14 L (22-30) mmol/L BUN 56 H (9-20) mg/dL Creatinine 6.46 H (0.66-1.25) mg/dL Glucose 190 H (74-99) mg/dL POC Glucose (mg/dL) (70-110) mg/dL Hemoglobin A1c (<=6.0) % Urine Protein 1+ H (Negative) Urine Glucose (UA) Trace H (Negative) Urine Ketones Trace H (Negative) Urine Blood Small H (Negative) Urine Bacteria Rare H (None) /hpf Urine Mucus Rare H (None) /hpf 01/20/23 01/20/23 01/20/23 Range/Units 19:10 19:10 19:13 RBC (4.30-5.90) m/uL Hgb (13.0-17.5) gm/dL Hct (39.0-53.0) % Neutrophils # (1.3-7.7) k/uL Lymphocytes # (1.0-4.8) k/uL VBG HCO3 20 L (24-28) mmol/L Potassium (3.5-5.1) mmol/L Carbon Dioxide (22-30) mmol/L BUN (9-20) mg/dL Creatinine (0.66-1.25) mg/dL Glucose (74-99) mg/dL POC Glucose (mg/dL) 181 H (70-110) mg/dL Hemoglobin A1c 6.9 H (<=6.0) % Urine Protein (Negative) Urine Glucose (UA) (Negative) Urine Ketones (Negative) Urine Blood (Negative) Urine Bacteria (None) /hpf Urine Mucus (None) /hpf 01/20/23 01/21/23 Range/Units 23:15 07:43 RBC (4.30-5.90) m/uL Hgb (13.0-17.5) gm/dL Hct (39.0-53.0) % Neutrophils # (1.3-7.7) k/uL Lymphocytes # (1.0-4.8) k/uL VBG HCO3 (24-28) mmol/L Potassium (3.5-5.1) mmol/L Carbon Dioxide (22-30) mmol/L BUN (9-20) mg/dL Creatinine (0.66-1.25) mg/dL Glucose (74-99) mg/dL POC Glucose (mg/dL) 163 H 116 H (70-110) mg/dL Hemoglobin A1c (<=6.0) % Urine Protein (Negative) Urine Glucose (UA) (Negative) Urine Ketones (Negative) Urine Blood (Negative) Urine Bacteria (None) /hpf Urine Mucus (None) /hpf
[2023-01-22] MEDS: DEXTROSE 5% IN WATER 1,000 ML with SODIUM BICARB (1 MEQ/ML) 150 ML IV SCH (05:59)
--- NOTE | 2023-01-22 07:02 | XR ---
EXAMINATION TYPE: XR chest 2V DATE OF EXAM: 01/21/2023 10:48 PM COMPARISON: None TECHNIQUE: XR chest 2V Frontal and lateral views of the chest. CLINICAL INDICATION:Male, 57 years old with history of Not feeling well; FINDINGS: Lungs/Pleura: There is no evidence of pleural effusion, focal consolidation, or pneumothorax. Pulmonary vascularity: Unremarkable. Heart/mediastinum: Cardiomediastinal silhouette is unremarkable. Musculoskeletal: Multiple level degenerative disc disease changes seen throughout the spine. IMPRESSION: No acute cardiopulmonary disease/process.
[2023-01-22 07:33] LABS: Glucose,Whole Blood 152 mg/dL (70-110)
--- NOTE | 2023-01-22 07:36 | P.GSCN ---
History of Present Illness History of present illness: 57-year-old diabetic male well known to me patient has been coming to the wound clinic for regular basis patient had a right big toe amputation done in the past for ray amputation and also has a wound on the lateral aspect the right foot. We will treating with local wound care using Santyl cream. And we been using change her dressing every other day. Patient came with history of wanting dehydration on arrival his creatinine was 6.4 on repeat 4.75. Medical history history of diabetes, hypertension, peripheral vascular disease, surgical history patient had a ray amputation l right foot big toe ray amputation and had a wound on the lateral aspect of the right foot we've been treating with local wound care using Santyl cream. Neck neck is supple no bruit appreciated Chest is clear few crackles the lung bases first and second sound present Abdomen is soft no peritoneal sign wrap vascular femorals are 2+ bilateral patient has a ray amputation the right foot big toe and wound on the lateral aspect of the foot we will be treating with the local wound care using Santyl cream which will be continued and dressing change every 48 hours we'll follow with you Past Medical History Past Medical History: Diabetes Mellitus, Hyperlipidemia, Hypertension, Vascular Disorder Additional Past Medical History / Comment(s): september 09 rt great toe amputatied has wound care there History of Any Multi-Drug Resistant Organisms: MRSA Year Discovered:: 09/09/22 MDRO Source:: Right Foot Past Surgical History: Orthopedic Surgery, Tonsillectomy Additional Past Surgical History / Comment(s): BKA -2019 lft, rt great toe amp, lft knee arthroscopy Past Anesthesia/Blood Transfusion Reactions: No Reported Reaction Additional Past Anesthesia/Blood Transfusion Reaction / Comm: no blood transfusion hx Past Psychological History: No Psychological Hx Reported Smoking Status: Never smoker - Past Family History Mother Family Medical History: Cancer Additional Family Medical History / Comment(s): unknown Medications and Allergies Home Medications Medication Instructions Recorded Confirmed Type Atorvastatin [Lipitor] 10 mg PO QAM 09/08/22 01/21/23 History Pioglitazone [Actos] 15 mg PO QAM 09/08/22 01/21/23 History Semaglutide [Ozempic] 1 mg SQ WE@1430 09/08/22 01/21/23 History lisinopriL [Zestril] 10 mg PO BID 09/08/22 01/21/23 History metFORMIN HCL 1,000 mg PO BID 09/08/22 01/21/23 History Clopidogrel [Plavix] 75 mg PO DAILY@0 10/27/22 01/21/23 History Aspirin EC [Ecotrin Low Dose] 81 mg PO DAILY@1430 01/21/23 01/21/23 History Collagenase [Santyl Ointment] 1 applic TOPICAL AC-SUPPER 01/21/23 01/21/23 History Ketorolac 0.5% Ophth Soln [Acular 1 drop BOTH EYES QID 01/21/23 01/21/23 History 0.5%] prednisoLONE ACETATE 1% OPHTH 1 drop BOTH EYES QID 01/21/23 01/21/23 History [Pred Forte 1%] Allergies Allergy/AdvReac Type Severity Reaction Status Date / Time No Known Allergies Allergy Verified 01/21/23 07:26 Surgical - Exam Vital Signs Temp Pulse Resp BP Pulse Ox 98.9 F 110 H 18 123/77 98 01/20/23 18:42 01/20/23 18:42 01/20/23 18:42 01/20/23 18:42 01/20/23 18:42 Results - Labs 01/20/23 19:10 01/21/23 13:05 Abnormal Lab Results - Last 24 Hours (Table) 01/20/23 01/21/23 01/21/23 Range/Units 19:10 07:43 12:32 Carbon Dioxide (22-30) mmol/L BUN (9-20) mg/dL Creatinine (0.66-1.25) mg/dL Glucose (74-99) mg/dL POC Glucose (mg/dL) 116 H 121 H (70-110) mg/dL Hemoglobin A1c 6.9 H (<=6.0) % 01/21/23 01/21/23 01/21/23 Range/Units 13:05 16:51 20:14 Carbon Dioxide 16 L (22-30) mmol/L BUN 55 H (9-20) mg/dL Creatinine 4.75 H (0.66-1.25) mg/dL Glucose 138 H (74-99) mg/dL POC Glucose (mg/dL) 133 H 152 H (70-110) mg/dL Hemoglobin A1c (<=6.0) % 01/22/23 Range/Units 07:31 Carbon Dioxide (22-30) mmol/L BUN (9-20) mg/dL Creatinine (0.66-1.25) mg/dL Glucose (74-99) mg/dL POC Glucose (mg/dL) 152 H (70-110) mg/dL Hemoglobin A1c (<=6.0) % Diabetes panel 01/20/23 01/21/23 Range/Units 19:10 13:05 Sodium 139 (137-145) mmol/L Potassium 4.5 (3.5-5.1) mmol/L Chloride 107 (98-107) mmol/L Carbon Dioxide 16 L (22-30) mmol/L BUN 55 H (9-20) mg/dL Creatinine 4.75 H (0.66-1.25) mg/dL Glucose 138 H (74-99) mg/dL Hemoglobin A1c 6.9 H (<=6.0) % Calcium 9.5 (8.4-10.2) mg/dL Calcium panel 01/21/23 Range/Units 13:05 Calcium 9.5 (8.4-10.2) mg/dL Pituitary panel 01/21/23 Range/Units 13:05 Sodium 139 (137-145) mmol/L Potassium 4.5 (3.5-5.1) mmol/L Chloride 107 (98-107) mmol/L Carbon Dioxide 16 L (22-30) mmol/L BUN 55 H (9-20) mg/dL Creatinine 4.75 H (0.66-1.25) mg/dL Glucose 138 H (74-99) mg/dL Calcium 9.5 (8.4-10.2) mg/dL Adrenal panel 01/21/23 Range/Units 13:05 Sodium 139 (137-145) mmol/L Potassium 4.5 (3.5-5.1) mmol/L Chloride 107 (98-107) mmol/L Carbon Dioxide 16 L (22-30) mmol/L BUN 55 H (9-20) mg/dL Creatinine 4.75 H (0.66-1.25) mg/dL Glucose 138 H (74-99) mg/dL Calcium 9.5 (8.4-10.2) mg/dL
[2023-01-22] MEDS: INSULIN ASPART (NovoLOG) 100 UNIT/ML VIAL SQ SCH ×3 (07:57→17:47)
[2023-01-22] MEDS: ATORVASTATIN 10 MG TAB PO SCH (07:57)
[2023-01-22] MEDS: prednisoLONE ACETATE 1% OPHTH DROPS 5 ML BTL BOTH EYES SCH ×4 (07:58→21:28)
[2023-01-22] MEDS: KETOROLAC 0.5% OPHTH DROPS 5 ML BTL BOTH EYES SCH ×4 (07:58→21:28)
[2023-01-22 11:04] LABS: BUN/Creat Ratio 13.19 Ratio (12.00-20.00); Blood Urea Nitrogen 40.9 mg/dL (9.0-27.0); Calcium 9.4 mg/dL (8.7-10.3); Carbon Dioxide 23.3 mmol/L (21.6-31.8); Chloride 102 mmol/L (96-109); Glucose 146 mg/dL (70-110); Magnesium 2.1 mg/dL (1.5-2.4); Potassium 4.1 mmol/L (3.5-5.5); Sodium 139 mmol/L (135-145)
[2023-01-22 12:22] LABS: Glucose,Whole Blood 175 mg/dL (70-110)
--- NOTE | 2023-01-22 12:43 | P.NPCON ---
History of Present Illness - Reason for Consult acute renal failure - History of Present Illness Reason for consultation: Acute kidney injury History of present illness: Patient is a 57-year-old male seen in renal consultation for acute kidney injury. Patient's creatinine on admission was 6.46 and is down to 3.1 today. Patient's baseline creatinine is near 1 from October 2022. Patient came to the hospital due to vomiting which is going on for about 3 days. Patient admits to 5-6 episodes of vomiting daily. Oral intake has been poor the last few days. Patient does a long-standing history of diabetes. He did receive 2 L of normal saline on admission and is currently maintained on bicarb drip. Acidosis is improved. Blood pressure is well controlled. He was on lisinopril as well as metformin outpatient which are both currently held. Patient has history of peripheral vascular disease with history of left BKA. He also had right lower extremity intervention for peripheral arterial disease. He denies chest pain or shortness of breath. No gross hematuria or dysuria. Denies regular use of nonsteroidals. Denies family history of renal disease. Denies history of cardiac stenting. He is currently on a renal diet and is tolerating it well. Vital signs are stable. General: No acute distress. HEENT: Head exam is unremarkable. LUNGS: No acute distress. HEART: Rate and Rhythm are regular. ABDOMEN: Soft, nontender. EXTREMITITES: No edema. Past Medical History Past Medical History: Diabetes Mellitus, Hyperlipidemia, Hypertension, Vascular Disorder Additional Past Medical History / Comment(s): september 09 rt great toe amputatied has wound care there History of Any Multi-Drug Resistant Organisms: MRSA Date of last positivie culture/infection: 09/09/22 MDRO Source:: Right Foot Past Surgical History: Orthopedic Surgery, Tonsillectomy Additional Past Surgical History / Comment(s): BKA -2019 lft, rt great toe amp, lft knee arthroscopy Past Anesthesia/Blood Transfusion Reactions: No Reported Reaction Additional Past Anesthesia/Blood Transfusion Reaction / Comment(s): no blood transfusion hx Past Psychological History: No Psychological Hx Reported Smoking Status: Never smoker - Past Family History Mother Family Medical History: Cancer Additional Family Medical History / Comment(s): unknown Medications and Allergies Home Medications Medication Instructions Recorded Confirmed Type Atorvastatin [Lipitor] 10 mg PO QAM 09/08/22 01/21/23 History Pioglitazone [Actos] 15 mg PO QAM 09/08/22 01/21/23 History Semaglutide [Ozempic] 1 mg SQ WE@1430 09/08/22 01/21/23 History lisinopriL [Zestril] 10 mg PO BID 09/08/22 01/21/23 History metFORMIN HCL 1,000 mg PO BID 09/08/22 01/21/23 History Clopidogrel [Plavix] 75 mg PO DAILY@142910/27/22 01/21/23 History Aspirin EC [Ecotrin Low Dose] 81 mg PO DAILY@142901/21/23 01/21/23 History Collagenase [Santyl Ointment] 1 applic TOPICAL AC-SUPPER 01/21/23 01/21/23 History Ketorolac 0.5% Ophth Soln [Acular 1 drop BOTH EYES QID 01/21/23 01/21/23 History 0.5%] prednisoLONE ACETATE 1% OPHTH 1 drop BOTH EYES QID 01/21/23 01/21/23 History [Pred Forte 1%] Allergies Allergy/AdvReac Type Severity Reaction Status Date / Time No Known Allergies Allergy Verified 01/21/23 07:26 Physical Exam Vitals: Vital Signs Temp Pulse Pulse Resp BP BP Pulse Ox 01/22/23 07:31 98.2 F 83 16 162/94 98 01/22/23 01:36 98.4 F 89 17 159/88 98 01/21/23 19:45 18 01/21/23 17:48 98.7 F 101 H 18 137/87 99 01/21/23 16:20 98.5 F 94 18 130/75 96 01/21/23 13:51 98 20 152/95 96 Intake and Output 01/21/23 01/22/23 01/22/23 22:59 06:59 14:59 Intake Total 1200 Output Total 200 550 610 Balance -200 650 -610 Intake: Intake, IV Titration 1200 Amount Dextrose 5% in Water 1, 1200 000 ml @ 100 mls/hr IV . [id number] GERARDO with Sodium Bicarb (1 Meq/ml) 150 ml Rx#:[id number] Output: Urine 200 550 610 Other: Voiding Method Bedside Commode Bedside Commode Urinal Urinal # Voids 1 Weight 106.594 kg Results - Lab Results Most recent lab results Calcium 9.4 mg/dL (8.7-10.3) 01/22/23 06:17 Magnesium 2.1 mg/dL (1.5-2.4) 01/22/23 06:17 01/20/23 19:10 01/22/23 06:17 Assessment and Plan Plan: Assessment: 1. Acute kidney injury mostly prerenal secondary to hypovolemia further worsened with the use of JOHANN inhibitor. Creatinine 6.46 on admission and is 3.1 today. Baseline creatinine near 1 for me of 2022. Computed tomography scan héctor wed no evidence of hydronephrosis. UA with 1+ protein, no RBCs. This will be repeated outpatient and proteinuria will be quantified. 2. Metabolic acidosis secondary to acute kidney injury. Improved with bicarbonate drip. 3. Mild hyperkalemia secondary to acute kidney injury, acidosis and Johann in hibitor. Improved. 4. Nausea and vomiting. Possibly gastroenteritis versus gastroparesis. Improv ed. 5. Benign hypertension. Controlled. 6. Diabetes mellitus. 7. Peripheral arterial disease status post left BKA and right lower extremity intervention. Plan: Change bicarb drip to normal saline at 75 mL an hour. Encourage oral intake. Avoid nephrotoxins. Continue to monitor renal function and urine output. Hold off on lisinopril at this time. Add amlodipine 5 mg once daily. Thank you for the consultation. I will continue to follow the patient during his hospital stay.
[2023-01-22] MEDS: amLODIPine 5 MG TAB PO SCH (13:18)
[2023-01-22] MEDS: ASPIRIN 81 MG PO SCH (13:18)
[2023-01-22] MEDS: CLOPIDOGREL 75 MG TAB PO SCH (13:18)
[2023-01-22] MEDS: SODIUM CHLORIDE 0.9% 1,000 ML IV SCH (13:56)
[2023-01-22 17:31] LABS: Glucose,Whole Blood 131 mg/dL (70-110)
[2023-01-22] MEDS: COLLAGENASE 250 UNIT/GM OINTMENT 30 GM TUBE TOPICAL SCH (17:59)
[2023-01-22 20:30] LABS: Glucose,Whole Blood 125 mg/dL (70-110)
--- NOTE | 2023-01-22 20:35 | P.PN ---
Progress Note - Text Progress Note Date: 01/22/23 Chief Complaint: Nausea vomiting patient is a 57-year-old gentleman , who follows with Dr. Jama. Patient presents with about 3 days of vomiting. Abdominal pain on and off. Having bowel movements. No fever no chills. In August 2022 patient underwent amputation of the right big toe. By Dr. Cuadra. Does follow with him at the wound care center. Patient found an acute kidney injury in the ER. Started on IV fluids. Feeling slightly better this morning. Tired. Dizzy lightheaded. 01/22/2023: Sitting edge of bed. Slight nausea. tolerating a light diet. No vomiting. Some improvement in creatinine. Normal saline. Active Medications Amlodipine Besylate (Amlodipine 5 Mg Tab) 5 mg PO DAILY [facility] Last Admin: 01/22/23 13:18 Dose: 5 mg Aspirin (Aspirin 81 Mg) 81 mg PO Q24H [facility] Last Admin: 01/22/23 13:18 Dose: 81 mg Atorvastatin Calcium (Atorvastatin 10 Mg Tab) 10 mg PO DAILY [facility] Last Admin: 01/22/23 07:57 Dose: 10 mg Clopidogrel Bisulfate (Clopidogrel 75 Mg Tab) 75 mg PO Q24H [facility] Last Admin: 01/22/23 13:18 Dose: 75 mg Collagenase (Collagenase 250 Unit/Gm Ointment 30 Gm Tube) 1 applic TOPICAL AC- SUPPER [facility]; Protocol Last Admin: 01/22/23 17:59 Dose: Not Given Dextrose/Water (Dextrose 50% Syringe 50 Ml) 25 ml IVP PER PROTOCOL PRN; Protocol PRN Reason: Hypoglycemia Dextrose/Water (Dextrose 50% Syringe 50 Ml) 50 ml IVP PER PROTOCOL PRN; Protocol PRN Reason: Hypoglycemia Sodium Chloride (Saline 0.9%) 1,000 mls @ 75 mls/hr IV .[id number] [facility] Last Admin: 01/22/23 13:56 Dose: 75 mls/hr Insulin Aspart (Insulin Aspart (Novolog) 100 Unit/Ml Vial) 0 unit SQ AC-TID [facility]; Protocol Last Admin: 01/22/23 17:47 Dose: Not Given Ketorolac Tromethamine (Ketorolac 0.5% Ophth Drops 5 Ml Btl) 1 drops BOTH EYES QID [facility] Last Admin: 01/22/23 17:58 Dose: 1 drops Naloxone HCl (Naloxone 0.4 Mg/Ml 1 Ml Vial) 0.2 mg IV Q2M PRN PRN Reason: Opioid Reversal Ondansetron HCl (Ondansetron 4 Mg/2 Ml Vial) 4 mg IVP Q8HR PRN PRN Reason: Nausea And Vomiting Prednisolone Acetate (Prednisolone Acetate 1% Ophth Drops 5 Ml Btl) 1 drops BOTH EYES QID [facility] Last Admin: 01/22/23 17:57 Dose: 1 drops Past medical history to include: Chronic anemia, essential hypertension, hyperlipidemia, diabetes mellitus type 2, right big toe amputation August 2022 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 Oral cavity normal EYES: Pupils equal. Conjunctiva normal. NECK: JVD not raised. Mass not palpable. RESPIRATORY: Respiratory effort normal. Lungs clear to auscultation. CARDIOVASCULAR: First and second sounds normal. No edema. ABDOMEN: Soft. Liver and spleen not palpable. No tenderness. No mass palpable. PSYCHIATRY: Alert and oriented x3. Mood and affect tired EXTREMITY: Right foot in a dressing. Ray amputation INVESTIGATIONS, reviewed in the clinical context: January 22: Potassium 4.1 BUN 40.9 creatinine 3.1 January 20: White count 10.6 hemoglobin 11.8 platelets 259 sodium 139 potassium 5.4 BUN 56 creatinine 6.46. Acetone positive. Bicarbonate 14. CT abdomen pelvis:no evidence of any acute process. Assessment and plan: -Acute diabetic ketoacidosis.: Resolved IV fluids. Insulin. -Right foot wound with re-amputation of the big toe in August 2022. Being followed by Dr. Cuadra. Follow with Dr. Cuadra. Wound care. -Acute kidney injury, combination of ATN, prerenal. From decreased oral intake and medications thereof.: Slow to respond IV fluids. Follow labs. -Normocytic anemia, stable and chronic Follow-up with PCP -Essential Hypertension Hold Zestril. -Obesity BMI 30.2 Weight loss measures -Hyperlipidemia Lipitor -Diabetes mellitus, type II, on oral hypoglycemic Hold oral hypoglycemics for now. Follow Accu-Cheks. Discussed with patient. Continue IV fluids. Diet as tolerated. Follow labs.
[2023-01-23] MEDS: SODIUM CHLORIDE 0.9% 1,000 ML IV SCH ×2 (03:29→17:29)
[2023-01-23 05:51] LABS: African American GFR (CKD) 46 (>60 ml/min/1.73 sqM); Anion Gap 14 mmol/L; Blood Urea Nitrogen 28 mg/dL (9-20); Calcium 9.5 mg/dL (8.4-10.2); Carbon Dioxide 24 mmol/L (22-30); Chloride 101 mmol/L (98-107); Glucose 138 mg/dL (74-99); Magnesium 1.7 mg/dL (1.6-2.3); Non-African American GFR(CKD) 40 (>60 ml/min/1.73 sqM); Potassium 4.2 mmol/L (3.5-5.1); Sodium 139 mmol/L (137-145)
[2023-01-23 07:33] LABS: Glucose,Whole Blood 139 mg/dL (70-110)
[2023-01-23] MEDS: INSULIN ASPART (NovoLOG) 100 UNIT/ML VIAL SQ SCH ×3 (08:17→17:28)
[2023-01-23] MEDS: amLODIPine 5 MG TAB PO SCH (08:44)
[2023-01-23] MEDS: ATORVASTATIN 10 MG TAB PO SCH (08:44)
[2023-01-23] MEDS: KETOROLAC 0.5% OPHTH DROPS 5 ML BTL BOTH EYES SCH ×4 (08:45→21:12)
[2023-01-23] MEDS: prednisoLONE ACETATE 1% OPHTH DROPS 5 ML BTL BOTH EYES SCH ×4 (08:46→21:11)
--- NOTE | 2023-01-23 11:44 | P.PN ---
Subjective Patient is seen in follow for acute kidney injury. Renal function improving. No further vomiting or diarrhea. Oral intake fair. Blood pressure stable. Vital signs are stable. General: No acute distress. HEENT: Head exam is unremarkable. LUNGS: No audible rhonchi or wheezes. HEART: Rate and Rhythm are regular. ABDOMEN: Soft, nontender. EXTREMITITES: No edema. BKA noted. Objective - Vital Signs Vital signs: Vital Signs Temp 97.9 F 01/23/23 07:27 Pulse 94 01/23/23 07:27 Resp 16 01/23/23 07:27 BP 132/85 01/23/23 07:27 Pulse Ox 98 01/23/23 07:27 FiO2 Intake & Output 01/22/23 01/23/23 01/23/23 18:59 06:59 18:59 Intake Total 1380 Output Total 610 1650 Balance -610 -270 Intake: Intake, IV Titration 900 Amount Sodium Chloride 0.9% 1, 900 000 ml @ 75 mls/hr IV . [id number] [facility] Rx#:[id number] Oral 480 Output: Urine 610 1650 Other: Voiding Method Bedside Commode Bedside Commode Urinal # Voids 1 1 # Bowel Movements 1 - Labs CBC & Chem 7: 01/20/23 19:10 01/23/23 05:08 Labs: Abnormal Lab Results - Last 24 Hours (Table) 01/22/23 01/22/23 01/22/23 Range/Units 12:21 17:30 20:25 BUN (9-20) mg/dL Creatinine (0.66-1.25) mg/dL Glucose (74-99) mg/dL POC Glucose (mg/dL) 175 H 131 H 125 H (70-110) mg/dL 01/23/23 01/23/23 Range/Units 05:08 07:32 BUN 28 H (9-20) mg/dL Creatinine 1.82 H (0.66-1.25) mg/dL Glucose 138 H (74-99) mg/dL POC Glucose (mg/dL) 139 H (70-110) mg/dL Assessment and Plan Plan: Assessment: 1. Acute kidney injury mostly prerenal secondary to hypovolemia further worsened with the use of JOHANN inhibitor. Creatinine 6.46 on admission and is 1.82 today. Baseline creatinine near 1 for me of 2022. Computed tomography scan showed no evidence of hydronephrosis. UA with 1+ protein, no RBCs. This will be repeated outpatient and proteinuria will be quantified. 2. Metabolic acidosis secondary to acute kidney injury. Improved with bicarb andie drip. 3. Mild hyperkalemia secondary to acute kidney injury, acidosis and Johann inhibitor. Improved. 4. Nausea and vomiting. Possibly gastroenteritis versus gastroparesis. Improved. 5. Benign hypertension. Controlled. 6. Diabetes mellitus. 7. Peripheral arterial disease status post left BKA and right lower extremity intervention. Plan: Maintain normal saline. Encourage oral intake. Avoid nephrotoxins. Continue to monitor renal function and urine output. Hold off on lisinopril at this time. Amlodipine added this admission.
[2023-01-23 12:34] LABS: Glucose,Whole Blood 131 mg/dL (70-110)
[2023-01-23] MEDS: CLOPIDOGREL 75 MG TAB PO SCH (13:31)
[2023-01-23] MEDS: ASPIRIN 81 MG PO SCH (13:31)
[2023-01-23] MEDS: COLLAGENASE 250 UNIT/GM OINTMENT 30 GM TUBE TOPICAL SCH (16:44)
[2023-01-23 17:09] LABS: Glucose,Whole Blood 185 mg/dL (70-110)
--- NOTE | 2023-01-23 19:53 | P.PN ---
Progress Note - Text Progress Note Date: 01/23/23 Chief Complaint: Nausea vomiting patient is a 57-year-old gentleman , who follows with Dr. Jama. Patient presents with about 3 days of vomiting. Abdominal pain on and off. Having bowel movements. No fever no chills. In August 2022 patient underwent amputation of the right big toe. By Dr. Cuadra. Does follow with him at the wound care center. Patient found an acute kidney injury in the ER. Started on IV fluids. Feeling slightly better this morning. Tired. Dizzy lightheaded. 01/22/2023: Sitting edge of bed. Slight nausea. tolerating a light diet. No vomiting. Some improvement in creatinine. Normal saline. 01/23/2023: Feeling better. Decreased nausea. Eating a light diet better. Creatinine improving. Continue normal saline. Active Medications Amlodipine Besylate (Amlodipine 5 Mg Tab) 5 mg PO DAILY [facility] Last Admin: 01/23/23 08:44 Dose: 5 mg Aspirin (Aspirin 81 Mg) 81 mg PO Q24H [facility] Last Admin: 01/23/23 13:31 Dose: 81 mg Atorvastatin Calcium (Atorvastatin 10 Mg Tab) 10 mg PO DAILY [facility] Last Admin: 01/23/23 08:44 Dose: 10 mg Clopidogrel Bisulfate (Clopidogrel 75 Mg Tab) 75 mg PO Q24H [facility] Last Admin: 01/23/23 13:31 Dose: 75 mg Collagenase (Collagenase 250 Unit/Gm Ointment 30 Gm Tube) 1 applic TOPICAL AC- SUPPER [facility]; Protocol Last Admin: 01/23/23 16:44 Dose: Not Given Dextrose/Water (Dextrose 50% Syringe 50 Ml) 25 ml IVP PER PROTOCOL PRN; Protocol PRN Reason: Hypoglycemia Dextrose/Water (Dextrose 50% Syringe 50 Ml) 50 ml IVP PER PROTOCOL PRN; Protocol PRN Reason: Hypoglycemia Sodium Chloride (Saline 0.9%) 1,000 mls @ 75 mls/hr IV .[id number] [facility] Last Admin: 01/23/23 17:29 Dose: 75 mls/hr Insulin Aspart (Insulin Aspart (Novolog) 100 Unit/Ml Vial) 0 unit SQ AC-TID [facility]; Protocol Last Admin: 01/23/23 17:28 Dose: 2 unit Ketorolac Tromethamine (Ketorolac 0.5% Ophth Drops 5 Ml Btl) 1 drops BOTH EYES QID [facility] Last Admin: 01/23/23 17:31 Dose: 1 drops Naloxone HCl (Naloxone 0.4 Mg/Ml 1 Ml Vial) 0.2 mg IV Q2M PRN PRN Reason: Opioid Reversal Ondansetron HCl (Ondansetron 4 Mg/2 Ml Vial) 4 mg IVP Q8HR PRN PRN Reason: Nausea And Vomiting Prednisolone Acetate (Prednisolone Acetate 1% Ophth Drops 5 Ml Btl) 1 drops BOTH EYES QID [facility] Last Admin: 01/23/23 17:31 Dose: 1 drops Past medical history to include: Chronic anemia, essential hypertension, hyperlipidemia, diabetes mellitus type 2, right big toe amputation August 2022 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 No smoking. 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 On examination: VITAL SIGNS: 98.4, 90, 16, 132/85, 99% room air GENERAL APPEARANCE: BMI 30.2, sitting up in bed, comfortable HEENT: Normal external appearance of nose and ear. Oral cavity normal EYES: Pupils equal. Conjunctiva normal. NECK: JVD not raised. Mass not palpable. RESPIRATORY: Respiratory effort normal. Lungs clear to auscultation. CARDIOVASCULAR: First and second sounds normal. No edema. ABDOMEN: Soft. Liver and spleen not palpable. No tenderness. No mass palpable. PSYCHIATRY: Alert and oriented x3. Mood and affect tired EXTREMITY: Right foot in a dressing. Ray amputation. Left below-knee amputation INVESTIGATIONS, reviewed in the clinical context: January 23: Potassium 4.2 BUN 28 creatinine 1.8 to January 22: Potassium 4.1 BUN 40.9 creatinine 3.1 January 20: White count 10.6 hemoglobin 11.8 platelets 259 sodium 139 potassium 5.4 BUN 56 creatinine 6.46. Acetone positive. Bicarbonate 14. CT abdomen pelvis:no evidence of any acute process. Assessment and plan: -Acute diabetic ketoacidosis.: Resolved IV fluids. Insulin. -Right foot wound with ray-amputation of the big toe in August 2022. Being followed by Dr. Cuadra. Follow with Dr. Cuadra. Santyl and Wound care every 48 hours. -Acute kidney injury, combination of ATN, prerenal. From decreased oral intake and medications thereof.: Improving IV fluids. Follow labs. -Normocytic anemia, stable and chronic Follow-up with PCP -Essential Hypertension Hold Zestril. -Obesity BMI 30.2 Weight loss measures -Hyperlipidemia Lipitor -Diabetes mellitus, type II, on oral hypoglycemic Resume Actos. Follow Accu-Cheks. Discussed with patient. Continue IV fluids. Resume Actos
[2023-01-23 20:09] LABS: Glucose,Whole Blood 123 mg/dL (70-110)
--- NOTE | 2023-01-23 20:53 | PN ---
PROGRESS NOTE Mr. Dee has a history of ray amputation of the right foot and wound on the lateral aspect. We have been treating with local wound care. The patient has some kidney failure issues. His kidney functions are improving. Today, we have changed the dressing using Santyl cream, which should be continued. Next dressing will be changed on Thursday. If the patient goes home, then he will follow up in the wound clinic. MMODL / IJN: [id number] /
[2023-01-24] MEDS: SODIUM CHLORIDE 0.9% 1,000 ML IV SCH ×2 (01:54→16:54)
[2023-01-24 06:43] LABS: African American GFR (CKD) 81 (>60 ml/min/1.73 sqM); Anion Gap 8 mmol/L; Blood Urea Nitrogen 19 mg/dL (9-20); Calcium 8.6 mg/dL (8.4-10.2); Carbon Dioxide 24 mmol/L (22-30); Chloride 105 mmol/L (98-107); Glucose 141 mg/dL (74-99); Non-African American GFR(CKD) 70 (>60 ml/min/1.73 sqM); Sodium 137 mmol/L (137-145)
[2023-01-24 07:04] LABS: Glucose,Whole Blood 130 mg/dL (70-110)
[2023-01-24] MEDS: INSULIN ASPART (NovoLOG) 100 UNIT/ML VIAL SQ SCH ×3 (07:20→17:38)
[2023-01-24] MEDS: prednisoLONE ACETATE 1% OPHTH DROPS 5 ML BTL BOTH EYES SCH ×4 (08:25→21:03)
[2023-01-24] MEDS: KETOROLAC 0.5% OPHTH DROPS 5 ML BTL BOTH EYES SCH ×4 (08:25→21:04)
[2023-01-24] MEDS: amLODIPine 5 MG TAB PO SCH (08:26)
[2023-01-24] MEDS: PIOGLITAZONE 15 MG TAB PO SCH (08:26)
[2023-01-24] MEDS: ATORVASTATIN 10 MG TAB PO SCH (08:26)
[2023-01-24 11:38] LABS: Glucose,Whole Blood 216 mg/dL (70-110)
--- NOTE | 2023-01-24 13:53 | P.PN ---
Subjective Patient is seen in follow for acute kidney injury. Renal function improving. No further vomiting or diarrhea. Oral intake fair. Blood pressure stable. Serum creatinine at 1.1 today from 6.4 on initial admission. No complaints today Objective - Vital Signs Vital signs: Vital Signs Temp 97.7 F 01/24/23 11:40 Pulse 90 01/24/23 11:40 Resp 18 01/24/23 11:40 BP 137/79 01/24/23 11:40 Pulse Ox 99 01/24/23 11:40 FiO2 Intake & Output 01/23/23 01/24/23 01/24/23 18:59 06:59 18:59 Intake Total 118 Output Total 975 Balance -857 Intake: Oral 118 Output: Urine 975 Other: Voiding Method Bedside Commode Bedside Commode Bedside Commode - Exam Awake, comfortable, no acute distress Examination of the heart S1 and S2 Examination lungs bilateral breath sounds are heard Abdomen is soft nontender Examination lower extremity shows no significant edema. Left BKA and right g reat toe amputation. PROCESSING SPECIALIST exam grossly intact - Labs CBC & Chem 7: 01/20/23 19:10 01/24/23 05:20 Labs: Abnormal Lab Results - Last 24 Hours (Table) 01/23/23 01/23/23 01/24/23 Range/Units 17:08 20:07 05:20 Glucose 141 H (74-99) mg/dL POC Glucose (mg/dL) 185 H 123 H (70-110) mg/dL 01/24/23 01/24/23 Range/Units 07:03 11:37 Glucose (74-99) mg/dL POC Glucose (mg/dL) 130 H 216 H (70-110) mg/dL Assessment and Plan Assessment: 1. Acute kidney injury mostly prerenal secondary to hypovolemia further worsened with the use of JOHANN inhibitor. Creatinine 6.46 on admission and is 1.82 today. Baseline creatinine near 1 for me of 2022. Computed tomography scan showed no evidence of hydronephrosis. UA with 1+ protein, no RBCs. This will be repeated outpatient and proteinuria will be quantified. 2. Metabolic acidosis secondary to acute kidney injury. Improved with bicarbonate drip. 3. Mild hyperkalemia secondary to acute kidney injury, acidosis and Johann inhibitor. Improved. 4. Nausea and vomiting. Possibly gastroenteritis versus gastroparesis. Improved. 5. Benign hypertension. Controlled. 6. Diabetes mellitus. 7. Peripheral arterial disease status post left BKA and right lower extremity intervention. Plan: Continue with IV fluids Continue to encourage increased oral intake Continue off of JOHANN inhibitor's for now. If blood pressure remains elevated we could resume low-dose lisinopril. Continue with amlodipine for now.
[2023-01-24] MEDS: ASPIRIN 81 MG PO SCH (14:31)
[2023-01-24] MEDS: CLOPIDOGREL 75 MG TAB PO SCH (14:31)
--- NOTE | 2023-01-24 16:27 | P.PN ---
Progress Note - Text Progress Note Date: 01/24/23 Chief Complaint: Nausea vomiting patient is a 57-year-old gentleman , who follows with Dr. Jama. Patient presents with about 3 days of vomiting. Abdominal pain on and off. Having bowel movements. No fever no chills. In August 2022 patient underwent amputation of the right big toe. By Dr. Cuadra. Does follow with him at the wound care center. Patient found an acute kidney injury in the ER. Started on IV fluids. Feeling slightly better this morning. Tired. Dizzy lightheaded. 01/22/2023: Sitting edge of bed. Slight nausea. tolerating a light diet. No vomiting. Some improvement in creatinine. Normal saline. 01/23/2023: Feeling better. Decreased nausea. Eating a light diet better. Creatinine improving. Continue normal saline. 01/24/2023: Congestive feel better. Eating better. Creatinine coming down. Discussed with patient. Active Medications Amlodipine Besylate (Amlodipine 5 Mg Tab) 5 mg PO DAILY [facility] Last Admin: 01/24/23 08:26 Dose: 5 mg Aspirin (Aspirin 81 Mg) 81 mg PO Q24H [facility] Last Admin: 01/24/23 14:31 Dose: 81 mg Atorvastatin Calcium (Atorvastatin 10 Mg Tab) 10 mg PO DAILY [facility] Last Admin: 01/24/23 08:26 Dose: 10 mg Clopidogrel Bisulfate (Clopidogrel 75 Mg Tab) 75 mg PO Q24H [facility] Last Admin: 01/24/23 14:31 Dose: 75 mg Collagenase (Collagenase 250 Unit/Gm Ointment 30 Gm Tube) 1 applic TOPICAL AC- SUPPER [facility]; Protocol Last Admin: 01/23/23 16:44 Dose: Not Given Dextrose/Water (Dextrose 50% Syringe 50 Ml) 25 ml IVP PER PROTOCOL PRN; Protocol PRN Reason: Hypoglycemia Dextrose/Water (Dextrose 50% Syringe 50 Ml) 50 ml IVP PER PROTOCOL PRN; Protocol PRN Reason: Hypoglycemia Sodium Chloride (Saline 0.9%) 1,000 mls @ 75 mls/hr IV .[id number] [facility] Last Admin: 01/24/23 01:54 Dose: 75 mls/hr Insulin Aspart (Insulin Aspart (Novolog) 100 Unit/Ml Vial) 0 unit SQ AC-TID [facility]; Protocol Last Admin: 01/24/23 12:42 Dose: 4 unit Ketorolac Tromethamine (Ketorolac 0.5% Ophth Drops 5 Ml Btl) 1 drops BOTH EYES QID [facility] Last Admin: 01/24/23 12:44 Dose: 1 drops Naloxone HCl (Naloxone 0.4 Mg/Ml 1 Ml Vial) 0.2 mg IV Q2M PRN PRN Reason: Opioid Reversal Ondansetron HCl (Ondansetron 4 Mg/2 Ml Vial) 4 mg IVP Q8HR PRN PRN Reason: Nausea And Vomiting Pioglitazone HCl (Pioglitazone 15 Mg Tab) 15 mg PO DAILY [facility] Last Admin: 01/24/23 08:26 Dose: 15 mg Prednisolone Acetate (Prednisolone Acetate 1% Ophth Drops 5 Ml Btl) 1 drops BOTH EYES QID [facility] Last Admin: 01/24/23 12:44 Dose: 1 drops Past medical history to include: Chronic anemia, essential hypertension, hyperlipidemia, diabetes mellitus type 2, right big toe amputation August 2022 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 Oral cavity normal EYES: Pupils equal. Conjunctiva normal. NECK: JVD not raised. Mass not palpable. RESPIRATORY: Respiratory effort normal. Lungs clear to auscultation. CARDIOVASCULAR: First and second sounds normal. No edema. ABDOMEN: Soft. Liver and spleen not palpable. No tenderness. No mass palpable. PSYCHIATRY: Alert and oriented x3. Mood and affect tired EXTREMITY: Right foot in a dressing. Ray amputation. Left below-knee amputation INVESTIGATIONS, reviewed in the clinical context: January 24: Potassium 4 creatinine 1.15 January 23: Potassium 4.2 BUN 28 creatinine 1.8 to January 22: Potassium 4.1 BUN 40.9 creatinine 3.1 January 20: White count 10.6 hemoglobin 11.8 platelets 259 sodium 139 potassium 5.4 BUN 56 creatinine 6.46. Acetone positive. Bicarbonate 14. CT abdomen pelvis:no evidence of any acute process. Assessment and plan: -Acute diabetic ketoacidosis.: Resolved IV fluids. Insulin. -Right foot wound with ray-amputation of the big toe in August 2022. Being followed by Dr. Cuadra. Follow with Dr. Cuadra. Santyl and Wound care every 48 hours. -Acute kidney injury, combination of ATN, prerenal. From decreased oral intake and medications thereof.: Improving IV fluids. Follow labs. -Normocytic anemia, stable and chronic Follow-up with PCP -Essential Hypertension Hold Zestril. -Obesity BMI 30.2 Weight loss measures -Hyperlipidemia Lipitor -Diabetes mellitus, type II, on oral hypoglycemic Resume Actos. Follow Accu-Cheks. Continue current medications. Hopefully can be discharged tomorrow. Resume Zestril tonight.
[2023-01-24] MEDS: COLLAGENASE 250 UNIT/GM OINTMENT 30 GM TUBE TOPICAL SCH (16:37)
[2023-01-24 17:09] LABS: Glucose,Whole Blood 134 mg/dL (70-110)
[2023-01-24 20:02] LABS: Glucose,Whole Blood 153 mg/dL (70-110)
[2023-01-24] MEDS: lisinopriL 10 MG TAB PO SCH (21:03)
[2023-01-25 02:02] VITALS: RESP 18
[2023-01-25 05:59] LABS: African American GFR (CKD) >90 (>60 ml/min/1.73 sqM); Anion Gap 9 mmol/L; Blood Urea Nitrogen 15 mg/dL (9-20); Calcium 8.8 mg/dL (8.4-10.2); Carbon Dioxide 21 mmol/L (22-30); Chloride 107 mmol/L (98-107); Glucose 106 mg/dL (74-99); Non-African American GFR(CKD) 78 (>60 ml/min/1.73 sqM); Sodium 137 mmol/L (137-145)
[2023-01-25 07:14] LABS: Glucose,Whole Blood 112 mg/dL (70-110)
[2023-01-25] MEDS: INSULIN ASPART (NovoLOG) 100 UNIT/ML VIAL SQ SCH ×2 (07:49→12:04)
[2023-01-25] MEDS: prednisoLONE ACETATE 1% OPHTH DROPS 5 ML BTL BOTH EYES SCH ×2 (08:22→12:03)
[2023-01-25] MEDS: KETOROLAC 0.5% OPHTH DROPS 5 ML BTL BOTH EYES SCH ×2 (08:22→12:03)
[2023-01-25] MEDS: PIOGLITAZONE 15 MG TAB PO SCH (08:23)
[2023-01-25] MEDS: amLODIPine 5 MG TAB PO SCH (08:23)
[2023-01-25] MEDS: ATORVASTATIN 10 MG TAB PO SCH (08:23)
[2023-01-25] MEDS: lisinopriL 10 MG TAB PO SCH (08:23)
[2023-01-25 11:14] LABS: Glucose,Whole Blood 160 mg/dL (70-110)
[2023-01-25 11:31] VITALS: BP 166/92; PULSE 86; TEMP 98.6
[2023-01-25] MEDS: SODIUM CHLORIDE 0.9% 1,000 ML IV SCH (11:51)
--- NOTE | 2023-01-25 12:18 | P.PN ---
Subjective Patient is seen in follow for acute kidney injury. Renal function improving. No further vomiting or diarrhea. Oral intake fair. Blood pressure stable. Serum creatinine at 1.0 today from 6.4 on initial admission. No complaints today Objective - Vital Signs Vital signs: Vital Signs Temp 98.6 F 01/25/23 11:15 Pulse 86 01/25/23 11:15 Resp 18 01/25/23 11:15 BP 166/92 01/25/23 11:15 Pulse Ox 99 01/25/23 11:15 FiO2 Intake & Output 01/24/23 01/25/23 01/25/23 18:59 06:59 18:59 Output Total 500 800 Balance -500 -800 Output: Urine 500 800 Other: Voiding Method Bedside Commode Bedside Commode Bedside Commode - Exam Awake, comfortable, no acute distress Examination of the heart S1 and S2 Examination lungs bilateral breath sounds are heard Abdomen is soft nontender Examination lower extremity shows no significant edema. Left BKA and right great toe amputation. HEALTH EDUCATION DIRECTOR exam grossly intact - Labs CBC & Chem 7: 01/20/23 19:10 01/25/23 05:14 Labs: Abnormal Lab Results - Last 24 Hours (Table) 01/24/23 01/24/23 01/25/23 Range/Units 17:08 20:00 05:14 Carbon Dioxide 21 L (22-30) mmol/L Glucose 106 H (74-99) mg/dL POC Glucose (mg/dL) 134 H 153 H (70-110) mg/dL 01/25/23 01/25/23 Range/Units 07:13 11:14 Carbon Dioxide (22-30) mmol/L Glucose (74-99) mg/dL POC Glucose (mg/dL) 112 H 160 H (70-110) mg/dL Assessment and Plan Assessment: 1. Acute kidney injury mostly prerenal secondary to hypovolemia further worsen ed with the use of JOHANN inhibitor. Creatinine 6.46 on admission and is 1.0 today. Baseline creatinine near 1 . Computed tomography scan showed no evidence of hydronephrosis. UA with 1+ protein, no RBCs. This will be repeated outpatient and proteinuria will be quantified. 2. Metabolic acidosis secondary to acute kidney injury. Improved with bicarbonate drip. 3. Mild hyperkalemia secondary to acute kidney injury, acidosis and Johann inhibitor. Improved. 4. Nausea and vomiting. Possibly gastroenteritis versus gastroparesis. Improved. 5. Benign hypertension. Controlled. 6. Diabetes mellitus. 7. Peripheral arterial disease status post left BKA and right lower extremity intervention. Plan: Continue with IV fluids Continue to encourage increased oral intake Okay to resume lisinopril
--- NOTE | 2023-01-25 15:16 | P.DS ---
Providers Date of admission: 01/20/23 21:04 Expected date of discharge: 01/25/23 Attending physician: Anmol Patel Consults: 01/21/23 12:59 Consult Physician Routine Consulting Provider: Paco Guzman Consult Reason/Comments: post op wound-f/u Do you want consulting provider notified?: Yes 01/21/23 13:01 Consult Physician Routine Consulting Provider: Luis Enrique Tabares Consult Reason/Comments: harmony Do you want consulting provider notified?: Yes Primary care physician: [place] [facility] Course: Chief Complaint: Nausea vomiting patient is a 57-year-old gentleman , who follows with Dr. Jama. Patient presents with about 3 days of vomiting. Abdominal pain on and off. Having bowel movements. No fever no chills. In August 2022 patient underwent amputation of the right big toe. By Dr. Cuadra. Does follow with him at the wound care center. Patient found an acute kidney injury in the ER. Started on IV fluids. Feeling slightly better this morning. Tired. Dizzy lightheaded. 01/22/2023: Sitting edge of bed. Slight nausea. tolerating a light diet. No vomiting. Some improvement in creatinine. Normal saline. 01/23/2023: Feeling better. Decreased nausea. Eating a light diet better. Creatinine improving. Continue normal saline. 01/24/2023: Congestive feel better. Eating better. Creatinine coming down. Discussed with patient. 01/25/2023: Creatinine has normalized. Blood pressure is running high and high side since amlodipine 5 mg added. Also back on his lisinopril. Discussed with patient. Questions answered. We'll continue to follow with Dr. Cuadra at the wound care center. 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 Oral cavity normal EYES: Pupils equal. Conjunctiva normal. NECK: JVD not raised. Mass not palpable. RESPIRATORY: Respiratory effort normal. Lungs clear to auscultation. CARDIOVASCULAR: First and second sounds normal. No edema. ABDOMEN: Soft. Liver and spleen not palpable. No tenderness. No mass palpable. PSYCHIATRY: Alert and oriented x3. Mood and affect tired EXTREMITY: Right foot in a dressing. Ray amputation. Left below-knee amputation INVESTIGATIONS, reviewed in the clinical context: January 25: Creatinine 1.05 January 20: White count 10.6 hemoglobin 11.8 platelets 259 sodium 139 potassium 5.4 BUN 56 creatinine 6.46. Acetone positive. Bicarbonate 14. CT abdomen pelvis:no evidence of any acute process. Assessment and plan: -Acute diabetic ketoacidosis.: Resolved IV fluids. Insulin. -Right foot wound with ray-amputation of the big toe in August 2022. Being f ollowed by Dr. Cuadra. Follow with Dr. Cuadra. Santyl and Wound care every 48 hours. -Acute kidney injury, combination of ATN, prerenal. From decreased oral intake and medications thereof.: Resolved IV fluids. -Normocytic anemia, stable and chronic Follow-up with PCP -Essential Hypertension, uncontrolled Lisinopril 10 mg twice a day. Amlodipine 5 mg a day. -Obesity BMI 30.2 Weight loss measures -Hyperlipidemia Lipitor -Diabetes mellitus, type II, on oral hypoglycemic Actos. Metformin. ozempic. Follow Accu-Cheks. Disposition: Home Patient Condition at Discharge: Fair Plan - Discharge Summary Discharge Rx Participant: Yes New Discharge Prescriptions: New amLODIPine [Norvasc] 5 mg PO DAILY #30 tab Continue Semaglutide [Ozempic] 1 mg SQ WE@1430 Pioglitazone [Actos] 15 mg PO QAM Clopidogrel [Plavix] 75 mg PO DAILY@1430 prednisoLONE ACETATE 1% OPHTH [Pred Forte 1%] 1 drop BOTH EYES QID Ketorolac 0.5% Ophth Soln [Acular 0.5%] 1 drop BOTH EYES QID Collagenase [Santyl Ointment] 1 applic TOPICAL AC-SUPPER Aspirin EC [Ecotrin Low Dose] 81 mg PO DAILY@1430 lisinopriL [Zestril] 10 mg PO BID Atorvastatin [Lipitor] 10 mg PO QAM metFORMIN HCL 1,000 mg PO BID Discharge Medication List Atorvastatin [Lipitor] 10 mg PO QAM 09/08/22 [History] Pioglitazone [Actos] 15 mg PO QAM 09/08/22 [History] Semaglutide [Ozempic] 1 mg SQ WE@1430 03/27/23 [History] lisinopriL [Zestril] 10 mg PO BID 09/08/22 [History] metFORMIN HCL 1,000 mg PO BID 09/08/22 [History] Clopidogrel [Plavix] 75 mg PO DAILY@142910/27/22 [History] Aspirin EC [Ecotrin Low Dose] 81 mg PO DAILY@142901/21/23 [History] Collagenase [Santyl Ointment] 1 applic TOPICAL AC-SUPPER 01/21/23 [History] Ketorolac 0.5% Ophth Soln [Acular 0.5%] 1 drop BOTH EYES QID 01/21/23 [History] prednisoLONE ACETATE 1% OPHTH [Pred Forte 1%] 1 drop BOTH EYES QID 01/21/23 [History] amLODIPine [Norvasc] 5 mg PO DAILY #30 tab 01/25/23 [Rx] Follow up Appointment(s)/Referral(s): Adam Jama DO [Primary Care Provider] - 1-2 days Fab Nayak MD [REFERRING] - 1-2 Days Patient Instructions/Handouts: Amlodipine (By mouth) Discharge Disposition: HOME SELF-CARE
== END 2023-01-25 15:07 | disposition short-term general hospital (02) | DRG 637 ==
LOC: EC 18:28 → 5NMEDONC 21:04
PROVIDERS: ADMIT Hospitalist; ATTEND Hospitalist
DX: E11.10 Type 2 diabetes mellitus with ketoacidosis without coma (principal); N17.0 Acute kidney failure with tubular necrosis; E11.51 Type 2 diabetes mellitus with diabetic peripheral angiopathy without gangrene; Z89.512 Acquired absence of left leg below knee; Z89.411 Acquired absence of right great toe; E87.5 Hyperkalemia; E86.0 Dehydration; E86.1 Hypovolemia; D64.9 Anemia, unspecified; I10 Essential (primary) hypertension; E78.5 Hyperlipidemia, unspecified; R80.9 Proteinuria, unspecified; E66.9 Obesity, unspecified; Z68.30 Body mass index [BMI] 30.0-30.9, adult; Z79.84 Long term (current) use of oral hypoglycemic drugs; Z79.82 Long term (current) use of aspirin; Z79.52 Long term (current) use of systemic steroids; Z79.621 Long term (current) use of calcineurin inhibitor; Z79.02 Long term (current) use of antithrombotics/antiplatelets; Z79.899 Other long term (current) drug therapy; Z86.14 Personal history of Methicillin resistant Staphylococcus aureus infection; Z71.3 Dietary counseling and surveillance
CPT/HCPCS: 36415; 71046; 74176; 80048; 80053; 81001; 82009; 82803; 83036; 83605; 83690; 83735; 85025; 93005; 96361; 96374; 96375; 99285

== ENCOUNTER 2023-07-21 06:43 | Day surgery (SDC) | payer OTHER ==
[~2023-07-21 06:43] MED LIST changes: -ALPRAZolam 0.25 MG TAB PO PRN; -ASPIRIN 325 MG TAB PO PRN; +LIDOCAINE 1% (10MG/ML) FOR IV START INTRADERMA PRN; -SODIUM CHLORIDE 0.9% 1,000 ML in EMPTY BAG 1 BAG IV ONE
[2023-07-21] MEDS: LACTATED RINGERS 1,000 ML IV SCH (07:14)
[2023-07-21 07:33] VITALS: TEMP 97.5
[2023-07-21 07:34] LABS: Glucose,Whole Blood 109 mg/dL (70-110)
[2023-07-21] MEDS ORDERED: PROPOFOL 10 MG/ML 20 ML VIAL IV ONE (07:41)
--- NOTE | 2023-07-21 08:05 | P.PCN ---
Date of Procedure: 07/21/23 Procedure(s) Performed: BRIEF HISTORY: Patient is a 58-year-old pleasant white male scheduled for an elective colonoscopy as a part of screening for colon cancer. PROCEDURE PERFORMED: Colonoscopy with snare polypectomy. PREOPERATIVE DIAGNOSIS: Screening for colon cancer. IV sedation per Anesthesia. PROCEDURE: After informed consent was obtained, the patient, was brought into the endoscopy unit. IV sedation was administered by Anesthesia under continuous monitoring. Digital rectal examination was normal. Initially the Olympus CF-160 flexible video colonoscope was then inserted in the rectum, gradually advanced into the cecum without any difficulty. Careful examination was performed as the scope was gradually being withdrawn. Ileocecal valve and the appendiceal orifice were visualized and appeared normal. Prep was excellent. Mucosa of the cecum, ascending colon, transverse colon, descending colon, appeared normal. In the sigmoid there was a 6 minute a polyp that was removed by cold snare polypectomy. In the rectosigmoid colon there was once limited polyp removed by snare polypectomy. Rest of the sigmoid colon, and rectum appeared normal. Retroflexion was performed in the rectum and no lesions were seen. The patient tolerated the procedure well. IMPRESSION: 6 mm sigmoid Polyp status post cold snare polypectomy 1 cm rectosigmoid polyp status post snare polypectomy RECOMMENDATIONS: Findings of this examination were discussed with the patient as his family.. He was advised to follow up with the biopsy results. If the biopsy with adenoma he can have a repeat colonoscopy in 3 years
[2023-07-21 08:28] LABS: Glucose,Whole Blood 107 mg/dL (70-110)
[2023-07-21 08:35] VITALS: BP 128/83; PULSE 58; RESP 16
== END 2023-07-21 08:55 | disposition home or self-care (01) ==
LOC: ORWHC2ENDO 06:43
PROVIDERS: ATTEND Internal Medicine Gastroenterology
DX: Z12.11 Encounter for screening for malignant neoplasm of colon (principal); D12.7 Benign neoplasm of rectosigmoid junction; K63.5 Polyp of colon; I10 Essential (primary) hypertension; E78.5 Hyperlipidemia, unspecified; G47.33 Obstructive sleep apnea (adult) (pediatric); E11.9 Type 2 diabetes mellitus without complications; Z79.84 Long term (current) use of oral hypoglycemic drugs; Z79.899 Other long term (current) drug therapy; Z79.82 Long term (current) use of aspirin; Z79.02 Long term (current) use of antithrombotics/antiplatelets
CPT/HCPCS: 88305; 45385; J2704

== ENCOUNTER 2024-03-21 16:09 | Inpatient (IN) | payer OTHER ==
--- NOTE | 2024-03-21 17:09 | ED ---
Extremity Problem HPI - General Chief complaint: Extremity Problem,Nontraumatic Stated complaint: POSS infection R foot Time Seen by Provider: 03/21/24 17:07 Source: patient, family, RN notes reviewed Mode of arrival: wheelchair Limitations: no limitations - History of Present Illness Initial comments: 58-year-old male presenting to the ER with a chief complaint of right foot wound. Patient was sent in by wound care and for admission and IV antibiotics. Patient has known PAD and diabetes. He has had a first great toe amputation in 2022. Patient has had a wound on the dorsal aspect of his foot since. reports she has been caring for it at home without complications. states while changing dressing yesterday she noticed his fourth right toe appeared infected. Patient denies any pain denies any fevers or chills. No other complaints. - Related Data Home Medications Medication Instructions Recorded Confirmed Pioglitazone [Actos] 15 mg PO DAILY 09/08/22 03/21/24 lisinopriL [Zestril] 10 mg PO BID 09/08/22 03/21/24 metFORMIN HCL 1,000 mg PO BID 09/08/22 03/21/24 Aspirin EC [Ecotrin Low Dose] 81 mg PO HS 01/21/23 03/21/24 Magnesium Oxide [Magnesium] 500 mg PO HS 07/21/23 03/21/24 Atorvastatin [Lipitor] 20 mg PO DAILY 03/21/24 03/21/24 Semaglutide [Ozempic] 0.5 mg SQ WE 03/21/24 03/21/24 Allergies Allergy/AdvReac Type Severity Reaction Status Date / Time wasp Allergy Severe Anaphylaxis, Uncoded 03/21/24 17:15 Swelling, heart palpatations Review of Systems ROS Statement: Those systems with pertinent positive or pertinent negative responses have been documented in the HPI. ROS Other: All systems not noted in ROS Statement are negative. Past Medical History Past Medical History: Diabetes Mellitus, Hyperlipidemia, Hypertension, Vascular Disorder Additional Past Medical History / Comment(s): september 09 rt great toe amputatied has wound care there History of Any Multi-Drug Resistant Organisms: MRSA Date of last positivie culture/infection: 09/09/22 MDRO Source:: Right Foot Past Surgical History: Orthopedic Surgery, Tonsillectomy Additional Past Surgical History / Comment(s): BKA -2019 lft, rt great toe amp, lft knee arthroscopy Past Anesthesia/Blood Transfusion Reactions: No Reported Reaction Additional Past Anesthesia/Blood Transfusion Reaction / Comment(s): no blood transfusion hx Past Psychological History: No Psychological Hx Reported Smoking Status: Never smoker Past Alcohol Use History: Occasional Past Drug Use History: None Reported - Past Family History Mother Family Medical History: Cancer Additional Family Medical History / Comment(s): unknown General Exam Limitations: no limitations General appearance: alert, in no apparent distress Respiratory exam: Present: normal lung sounds bilaterally. Absent: respiratory distress, wheezes, rales, rhonchi, stridor Cardiovascular Exam: Present: regular rate, normal rhythm, normal heart sounds. Absent: systolic murmur, diastolic murmur, rubs, gallop, clicks Extremities exam: Present: other (Surgically absent right great toe. There is a 3.5 cm wound to dorsal aspect of right foot. Fourth digit is erythematous distal and appears to be gangrenous and black. Nonpalpable dorsalis pedis pulse. Brisk cap refill.) Neurological exam: Present: alert, oriented X3, CN II-XII intact Skin exam: Present: warm, dry, intact, normal color. Absent: rash Course Vital Signs 03/21/24 16:12 Temperature 98.6 F Pulse Rate 90 Respiratory 16 Rate Blood Pressure 127/74 O2 Sat by Pulse 99 Oximetry - Reevaluation(s) Reevaluation #1: 03/21/24 18:[address] Patel for admission. Medical Decision Making - Medical Decision Making Was pt. sent in by a medical professional or institution (, PA, REED WORKER, urgent care, hospital, or snf...) When possible be specific @ -Yes patient was sent by wound care and Dr. Guzman for admission due to concern of osteomyelitis. Did you speak to anyone other than the patient for history (EMS, parent, family, police, friend...)? What history was obtained from this source @ -No Did you review nursing and triage notes (agree or disagree)? Why? @ -I reviewed and agree with nursing and triage notes Were old charts reviewed (outside hosp., previous admission, EMS record, old EKG, old radiological studies, urgent care reports/EKG's, snf records)? Report findings @ -No old charts were reviewed Differential Diagnosis (chest pain, altered mental status, abdominal pain women, abdominal pain men, vaginal bleeding, weakness, fever, dyspnea, syncope, headache, dizziness, GI bleed, back pain, seizure, CVA, palpatations, mental health, musculoskeletal)? @ -Differential Musculoskeletal: Muscular strain, contusion, ligament sprain, fracture, arthritis, septic arthritis, bursitis, cellulitis, muscle spasm, nerve compression, DVT, arterial occlusion, herpes zoster, electrolyte abnormality, tumor.... This is not meant to be in all inclusive list EKG interpreted by me (3pts min.). @ -None done X-rays interpreted by me (1pt min.). @ -Right foot x-ray showing an increased lucency over the fourth MTP joint concerning of osteomyelitis. Postsurgical changes of the first digit. No evidence of fracture. CT interpreted by me (1pt min.). @ -None done U/S interpreted by me (1pt. min.). @ -None done What testing was considered but not performed or refused? (CT, X-rays, U/S, labs)? Why? @ -None What meds were considered but not given or refused? Why? @ -None Did you discuss the management of the patient with other professionals (carmen de leon i.e. , PA, REED WORKER, lab, RT, psych nurse, social security benefits interviewer, wire worker, teacher, motorcycle police officer, porter sample case)? Give summary @ -Yes, case discussed with Dr. Patel for admission. Was smoking cessation discussed for >3mins.? @ -No Was critical care preformed (if so, how long)? @ -No Were there social determinants of health that impacted care today? How? (Homelessness, low income, unemployed, alcoholism, drug addiction, transportation, low edu. Level, literacy, decrease access to med. care, fdc, rehab)? @ -No Was there de-escalation of care discussed even if they declined (Discuss DNR or withdrawal of care, Hospice)? DNR status @ -No What co-morbidities impacted this encounter? (DM, HTN, Smoking, COPD, CAD, Cancer, CVA, ARF, Chemo, Hep., AIDS, mental health diagnosis, sleep apnea, mor bid obesity)? @ -Diabetes, peripheral artery disease, hypertension, hyperlipidemia Was patient admitted / discharged? Hospital course, mention meds given and route, prescriptions, significant lab abnormalities, going to OR and other pertinent info. @ -Admitted. 58-year-old male presented to the ER with a chief complaint of right foot wound. Patient was sent by Dr. Guzman for further evaluation. History and physical exam completed. Vitals within normal limits. Patient in no signs of acute distress. Exam showing a 3.5 x 3.5 wound to the dorsal aspect of right foot. Fourth digit appears to be gangrenous. Brisk cap refill in all digits. No palpable pulses. There is mild proximally spreading erythema on volar foot. Laboratory studies and imaging will be obtained, patient is agreea ble. Laboratory studies obtained showing a white blood cell count of 9.1. Lactic acid 2.3. BUN of 23, creatinine 1.21 with a GFR 65. Hemoglobin 10 which appears to be at patient's baseline. Right foot x-ray concerning of osteomyelitis. Admission considered and discussed with Dr. Patel for further evaluation and treatment of osteomyelitis. ID and Dr. Guzman on consult. Patient started on vancomycin and Zosyn. Blood cultures obtained prior to antibiotic initiation. Patient is agreeable for admission. Patient admitted in stable condition. Case discussed with ED attending of Dr. Garcia. Undiagnosed new problem with uncertain prognosis? @ -No Drug Therapy requiring intensive monitoring for toxicity (Heparin, Nitro, Insulin, Cardizem)? @ -No Were any procedures done? @ -No Diagnosis/symptom? @ -Osteomyelitis Acute, or Chronic, or Acute on Chronic? @ -Acute Uncomplicated (without systemic symptoms) or Complicated (systemic symptoms)? @ -Complicated Side effects of treatment? @ -No Exacerbation, Progression, or Severe Exacerbation? @ -No Poses a threat to life or bodily function? How? (Chest pain, [place], [place], pneumonia, PE, COPD, DKA, ARF, appy, cholecystitis, CVA, Diverticulitis, Homicidal, Suicidal, threat to staff... and all critical care pts) @ -Yes, osteomyelitis can lead to sepsis which can lead to endorgan dysfunction. - Lab Data Result diagrams: 03/21/24 17:05 03/21/24 17:05 Lab Results 03/21/24 03/21/24 03/21/24 Range/Units 17:05 17:05 17:05 WBC 9.1 (3.8-10.6) k/uL RBC 3.41 L (4.30-5.90) m/uL Hgb 10.0 L (13.0-17.5) gm/dL Hct 31.5 L (39.0-53.0) % MCV 92.5 (80.0-100.0) fL MCH 29.3 (25.0-35.0) pg MCHC 31.7 (31.0-37.0) g/dL RDW 12.9 (11.5-15.5) % Plt Count 333 (150-450) k/uL MPV 7.3 Neutrophils % 80 % Lymphocytes % 11 % Monocytes % 5 % Eosinophils % 1 % Basophils % 0 % Neutrophils # 7.3 (1.3-7.7) k/uL Lymphocytes # 1.1 (1.0-4.8) k/uL Monocytes # 0.4 (0-1.0) k/uL Eosinophils # 0.1 (0-0.7) k/uL Basophils # 0.0 (0-0.2) k/uL Hypochromasia Slight Sodium 138 (137-145) mmol/L Potassium 5.0 (3.5-5.1) mmol/L Chloride 107 (98-107) mmol/L Carbon Dioxide 24 (22-30) mmol/L Anion Gap 7 mmol/L BUN 23 H (9-20) mg/dL Creatinine 1.21 (0.66-1.25) mg/dL Est GFR (CKD-EPI)AfAm 76 (>60 ml/min/1.73 sqM) Est GFR (CKD-EPI)NonAf 65 (>60 ml/min/1.73 sqM) Glucose 139 H (74-99) mg/dL Plasma Lactic Acid Hiro 2.3 H* (0.7-2.0) mmol/L Calcium 8.9 (8.4-10.2) mg/dL Total Bilirubin 0.7 (0.2-1.3) mg/dL AST 27 (17-59) U/L ALT 16 (4-49) U/L Alkaline Phosphatase 83 (38-126) U/L Total Protein 6.9 (6.3-8.2) g/dL Albumin 3.8 (3.5-5.0) g/dL - Radiology Data Radiology results: report reviewed, image reviewed Disposition Clinical Impression: Osteomyelitis, Diabetes Disposition: ADMITTED IP TO THIS HOSP Condition: Stable Referrals: Adam Jama DO [Primary Care Provider] - 1-2 days Time of Disposition: 18:28
[2024-03-21 17:15] LABS: Basophils % (A) 0 %; Eosinophils # (A) 0.1 k/uL (0-0.7); Eosinophils % (A) 1 %; HCT 31.5 % (39.0-53.0); Hypochromasia Slight; Lymphocytes # (A) 1.1 k/uL (1.0-4.8); Lymphocytes % (A) 11 %; MCH 29.3 pg (25.0-35.0); MCHC 31.7 g/dL (31.0-37.0); MCV 92.5 fL (80.0-100.0); Mean Platelet Volume 7.3; Monocytes # (A) 0.4 k/uL (0-1.0); Monocytes % (A) 5 %; Neutrophils # (A) 7.3 k/uL (1.3-7.7); Neutrophils % (A) 80 %; Platelet Count 333 k/uL (150-450); RBC 3.41 m/uL (4.30-5.90); RDW 12.9 % (11.5-15.5); WBC 9.1 k/uL (3.8-10.6)
[2024-03-21 17:41] LABS: ALT 16 U/L (4-49); AST 27 U/L (17-59); African American GFR (CKD) 76 (>60 ml/min/1.73 sqM); Albumin 3.8 g/dL (3.5-5.0); Alkaline Phosphatase 83 U/L (38-126); Anion Gap 7 mmol/L; Blood Urea Nitrogen 23 mg/dL (9-20); Calcium 8.9 mg/dL (8.4-10.2); Carbon Dioxide 24 mmol/L (22-30); Chloride 107 mmol/L (98-107); Glucose 139 mg/dL (74-99); Non-African American GFR(CKD) 65 (>60 ml/min/1.73 sqM); Sodium 138 mmol/L (137-145); Total Bilirubin 0.7 mg/dL (0.2-1.3); Total Protein 6.9 g/dL (6.3-8.2)
[2024-03-21] MEDS: SODIUM CHLORIDE 0.9% 1,000 ML IV STA (17:41)
--- NOTE | 2024-03-21 17:53 | XR ---
EXAMINATION TYPE: XR foot complete RT DATE OF EXAM: 03/21/2024 5:38 PM CLINICAL INDICATION: Male, 58 years old with history of wound; [facility] COMPARISON: 09/08/2022 TECHNIQUE: XR foot complete RT examined in the AP, oblique, and lateral projections. FINDINGS: Subcutaneous gas near the fourth and fifth digits metatarsophalangeal joint. There is some mottling o f the osseous structures with lucency present. Possibly representing osteomyelitis change. Interval s urgical amputation of the first digit metatarsal. IMPRESSION: 1. 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 Correlate with MRI for without contrast. 2. Postsurgical changes of the first digit. 3. No evidence of fracture. [facility], , 03/21/2024 5:51 PM
[2024-03-21] MEDS ORDERED: NALOXONE 0.4 MG/ML 1 ML VIAL IV PRN (18:26)
[2024-03-21] MEDS ORDERED: VANCOMYCIN IV PER PHARMACY 1 EACH MISC MISCELLANE PRN (18:27)
[2024-03-21] MEDS: SODIUM CHLORIDE 0.9% 1,000 ML IV SCH (18:42)
[2024-03-21] MEDS: PIPERACILLIN-TAZOBACTAM 3.375 GM in SODIUM CHLORIDE 0.9% 100 ML IVPB ONE (18:42)
[2024-03-21] MEDS: VANCOMYCIN 1,750 MG in SODIUM CHLORIDE 0.9% 500 ML 500 ML IVPB STA (20:04)
[2024-03-22] MEDS: PIPERACILLIN-TAZOBACTAM 3.375 GM in SODIUM CHLORIDE 0.9% 100 ML IVPB SCH (01:24)
[2024-03-22] MEDS: ACETAMINOPHEN TAB 325 MG TAB PO PRN (01:25)
[2024-03-22 03:53] LABS: African American GFR (CKD) 65 (>60 ml/min/1.73 sqM); Anion Gap 5 mmol/L; Blood Urea Nitrogen 22 mg/dL (9-20); Calcium 8.4 mg/dL (8.4-10.2); Carbon Dioxide 20 mmol/L (22-30); Chloride 111 mmol/L (98-107); Glucose 142 mg/dL (74-99); Non-African American GFR(CKD) 57 (>60 ml/min/1.73 sqM); Potassium 4.3 mmol/L (3.5-5.1); Sodium 136 mmol/L (137-145)
[2024-03-22 06:35] LABS: Glucose,Whole Blood 135 mg/dL (70-110)
[2024-03-22] MEDS: VANCOMYCIN 1,750 MG in SODIUM CHLORIDE 0.9% 500 ML 500 ML IVPB SCH (06:44)
--- NOTE | 2024-03-22 07:49 | CONS ---
CONSULTATION HISTORY OF PRESENT ILLNESS: This is a 58-year-old gentleman with history of diabetes. The patient came to the wound clinic for followup. The patient with right foot fourth toe wet gangrene. No history of trauma. The patient had a right great toe removed in the past. PAST MEDICAL HISTORY: History of diabetes, peripheral vascular disease. PAST SURGICAL HISTORY: The patient had a left BK amputation done by me in the past. Also, the patient had a right great toe removed in the past. PHYSICAL EXAMINATION: NECK: Supple. No bruit appreciated. CHEST: Clear to auscultation. HEART: First and second sounds present. ABDOMEN: Soft, nontender. VASCULAR: Femorals are 1+ bilaterally. Right foot 5th toe has been removed in the past. 4th toe has a wet gangrene with necrotic changes. PLAN: Right 4th toe ray amputation. Risks and complications discussed. The patient has kept n.p.o. midnight. Consent for right foot 4th toe ray amputation. MMODL / IJN: [id number] /
[2024-03-22] MEDS: ATORVASTATIN 20 MG TAB PO SCH ×2 (11:12→21:09)
[2024-03-22] MEDS: lisinopriL 10 MG TAB PO SCH (11:12)
[2024-03-22] MEDS: PIOGLITAZONE 15 MG TAB PO SCH (11:12)
[2024-03-22] MEDS: ENOXAPARIN 40 MG/0.4 ML SYRINGE SQ SCH (11:12)
[2024-03-22 11:48] LABS: Glucose,Whole Blood 134 mg/dL (70-110)
[2024-03-22] MEDS: IV FLUID CONTINUATION 1,000 ML IV ONE (13:45)
[2024-03-22 13:49] LABS: Glucose,Whole Blood 133 mg/dL (70-110)
[2024-03-22] MEDS: ONDANSETRON 4 MG/2 ML VIAL IVP PRN (13:49)
[2024-03-22] MEDS: LIDOCAINE 1% INJ 10MG/ML (20 ML MDV) SQ ONE ×3 (14:30→15:22)
[2024-03-22] MEDS ORDERED: PROPOFOL 10 MG/ML 20 ML VIAL IV ONE (15:08)
[2024-03-22] MEDS ORDERED: fentaNYL (PF) 50 MCG/ML 2 ML AMP ONE (15:08)
[2024-03-22] MEDS ORDERED: MIDAZOLAM 2 MG/2 ML VIAL ONE (15:08)
[2024-03-22] MEDS ORDERED: KETAMINE HCL IN 0.9 % NACL 50 MG/5 ML SYRINGE ONE (15:08)
[2024-03-22 17:01] LABS: Glucose,Whole Blood 126 mg/dL (70-110)
--- NOTE | 2024-03-22 18:12 | P.HPIM ---
History of Present Illness H&P Date: 03/22/24 Chief Complaint: Right foot fourth toe gangrene patient is a 58-year-old gentleman , who follows with Dr. Jama. Chronic stable medical condition include diabetes, hypertension, hyperlipidemia, PAD, right big toe amputated August 2022. Left below-knee amputation 2018. With the prosthesis Patient goes to the wound care center every 2 weeks to be followed by Dr. Guzman from vascular. For about 2 days patient noticed to having low-grade fever and chills. And patient right foot fourth toe became discolored slight pain, 24 hours prior to presentation. Noticed by his . Gangrene changes. Patient sent in by Dr. Guzman for possible amputation. Patient denies any cardiac symptoms. No chest pain or shortness of breath. Review of systems: GEN.: Some decrease in appetite. Low-grade fever and chills EYES: None HEENT: None NECK: None RESPIRATORY: None CARDIOVASCULAR: None GASTROINTESTINAL: As above GENITOURINARY: None MUSCULOSKELETAL: As above LYMPHATICS: None HEMATOLOGICAL: None PSYCHIATRY: None NEUROLOGICAL: None Past medical history to include: Chronic anemia, essential hypertension, hyperlipidemia, diabetes mellitus type 2, right big toe amputation August 2022, PAD 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 No smoking. 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 On examination: VITAL SIGNS: 100.7, 106, 16, 100/59, 95% room air GENERAL APPEARANCE: In bed, not in distress HEENT: Normal external appearance of nose and ear. Oral cavity normal EYES: Pupils equal. Conjunctiva normal. NECK: JVD not raised. Mass not palpable. RESPIRATORY: Respiratory effort normal. Lungs clear to auscultation. CARDIOVASCULAR: First and second sounds normal. No edema. ABDOMEN: Soft. Liver and spleen not palpable. No tenderness. No mass palpable. PSYCHIATRY: Alert and oriented x3. Mood and affect tired EXTREMITY: Left below-knee amputation. Right foot big toe amputation. Right foot fourth toe-gangrenous changes distal to third INVESTIGATIONS, reviewed in the clinical context: March 22:Sodium 136 potassium 4.3 BUN 22 creatinine 1.36 March 21: White count 9.1 hemoglobin 10 platelets 333. Creatinine 1.21 Lactic acid 2.3, 3.3. X-ray right foot complete: Increased lucency at the metatarsophalangeal joint of the fourth digit concerning for osteomyelitis. Assessment and plan: -Possible acute osteomyelitis of the right foot fourth digit at the metatarsophalangeal joint. IV Zosyn. IV daptomycin. -Chronic right foot right foot wound with ray-amputation of the big toe in August 2022. Being followed by Dr. Guzman at the wound care center -Normocytic anemia, stable and chronic Check iron B12 folate studies -Essential Hypertension, uncontrolled Zestril -PAD Add Lipitor -Suspect chronic kidney disease from diabetic nephropathy and nephrosclerosis Check renal ultrasound. UA. -Obesity BMI 32.1 Weight loss measures -Hyperlipidemia Lipitor -Diabetes mellitus, type II, on oral hypoglycemic Ozempic. Metformin. Actos. Follow Accu-Cheks. -Full code Consult ID, vascular. Discussed with patient. Past Medical History Past Medical History: Diabetes Mellitus, Hyperlipidemia, Hypertension, Vascular Disorder Additional Past Medical History / Comment(s): september 09 rt great toe amputatied has wound care there History of Any Multi-Drug Resistant Organisms: MRSA Date of last positivie culture/infection: 09/09/22 MDRO Source:: Right Foot Past Surgical History: Orthopedic Surgery, Tonsillectomy Additional Past Surgical History / Comment(s): BKA -2019 lft, rt great toe amp, lft knee arthroscopy. angiogram Past Anesthesia/Blood Transfusion Reactions: No Reported Reaction Additional Past Anesthesia/Blood Transfusion Reaction / Comment(s): no blood transfusion hx Past Psychological History: No Psychological Hx Reported Smoking Status: Never smoker Past Alcohol Use History: Occasional Past Drug Use History: None Reported - Past Family History Mother Family Medical History: Cancer Additional Family Medical History / Comment(s): unknown Medications and Allergies Home Medications Medication Instructions Recorded Confirmed Type Pioglitazone [Actos] 15 mg PO DAILY 09/08/22 03/21/24 History lisinopriL [Zestril] 10 mg PO BID 09/08/22 03/21/24 History metFORMIN HCL 1,000 mg PO BID 09/08/22 03/21/24 History Aspirin EC [Ecotrin Low Dose] 81 mg PO HS 01/21/23 03/21/24 History Magnesium Oxide [Magnesium] 500 mg PO HS 07/21/23 03/21/24 History Atorvastatin [Lipitor] 20 mg PO DAILY 03/21/24 03/21/24 History Semaglutide [Ozempic] 0.5 mg SQ WE 03/21/24 03/21/24 History Allergies Allergy/AdvReac Type Severity Reaction Status Date / Time wasp Allergy Severe Anaphylaxis, Uncoded 03/21/24 17:15 Swelling, heart palpatations Physical Exam Vitals: Vital Signs Temp Pulse Pulse Resp BP BP Pulse Ox 03/22/24 07:41 98.4 F 82 17 123/78 97 03/22/24 04:00 98.9 F 03/22/24 01:25 100.7 F H 03/21/24 23:07 98.8 F 92 18 128/79 99 03/21/24 22:37 93 18 110/69 97 03/21/24 19:24 90 18 118/73 98 03/21/24 16:12 98.6 F 90 16 127/74 99 Intake and Output 03/21/24 03/22/24 03/22/24 22:59 06:59 14:59 Other: Weight 113.398 kg 113.398 kg Results CBC & Chem 7: 03/21/24 17:05 03/22/24 02:57 Labs: Abnormal Lab Results - Last 24 Hours (Table) 03/21/24 03/21/24 03/21/24 Range/Units 17:05 17:05 17:05 RBC 3.41 L (4.30-5.90) m/uL Hgb 10.0 L (13.0-17.5) gm/dL Hct 31.5 L (39.0-53.0) % Sodium (137-145) mmol/L Chloride (98-107) mmol/L Carbon Dioxide (22-30) mmol/L BUN 23 H (9-20) mg/dL Creatinine (0.66-1.25) mg/dL Glucose 139 H (74-99) mg/dL POC Glucose (mg/dL) (70-110) mg/dL Plasma Lactic Acid Hiro 2.3 H* (0.7-2.0) mmol/L 03/21/24 03/22/24 03/22/24 Range/Units 21:45 00:22 02:57 RBC (4.30-5.90) m/uL Hgb (13.0-17.5) gm/dL Hct (39.0-53.0) % Sodium 136 L (137-145) mmol/L Chloride 111 H (98-107) mmol/L Carbon Dioxide 20 L (22-30) mmol/L BUN 22 H (9-20) mg/dL Creatinine 1.36 H (0.66-1.25) mg/dL Glucose 142 H (74-99) mg/dL POC Glucose (mg/dL) (70-110) mg/dL Plasma Lactic Acid Hiro 3.3 H* 2.2 H* (0.7-2.0) mmol/L 03/22/24 Range/Units 06:33 RBC (4.30-5.90) m/uL Hgb (13.0-17.5) gm/dL Hct (39.0-53.0) % Sodium (137-145) mmol/L Chloride (98-107) mmol/L Carbon Dioxide (22-30) mmol/L BUN (9-20) mg/dL Creatinine (0.66-1.25) mg/dL Glucose (74-99) mg/dL POC Glucose (mg/dL) 135 H (70-110) mg/dL Plasma Lactic Acid Hiro (0.7-2.0) mmol/L Thrombosis Risk Factor Assmnt - Choose All That Apply Any of the Below Risk Factors Present?: Yes Each Factor Represents 1 point: Age 41-60 years Other Risk Factors: No Other congenital or acquired thrombophilia - If yes, enter type in comment: No Thrombosis Risk Factor Assessment Total Risk Factor Score: 1 Thrombosis Risk Factor Assessment Level: Low Risk
[2024-03-22] MEDS: SODIUM CHLORIDE 0.9% 1,000 ML IV SCH (18:44)
--- NOTE | 2024-03-22 19:01 | US ---
EXAMINATION TYPE: US kidneys/renal and bladder DATE OF EXAM: 03/22/2024 COMPARISON: CT 01/20/2023 CLINICAL INDICATION: Male, 58 years old with history of Evaluate for CKD; Eval CKD TECHNIQUE: Grayscale and color Doppler imaging of the bilateral kidneys and urinary bladder: FINDINGS: EXAM MEASUREMENTS: Right Kidney: 11.5 x 5.8 x 5.9 cm Left Kidney: 12.3 x 6.7 x 5.3 cm Right Kidney: wnl Left Kidney: wnl as best seen. Limited detail parenchymal assessment especially of the upper pole. No hydronephrosis on either side. Bladder: wnl Bilateral Jets seen: Right only IMPRESSION: No hydronephrosis. Renal measurements as above. [facility], , 03/22/2024 6:59 PM
[2024-03-22 20:36] LABS: Glucose,Whole Blood 200 mg/dL (70-110)
[2024-03-22] MEDS: ASPIRIN 81 MG PO SCH (21:09)
[2024-03-22] MEDS: MAGNESIUM OXIDE 400 MG TAB PO SCH (21:09)
[2024-03-22] MEDS: INSULIN ASPART (NovoLOG) 100 UNIT/ML VIAL SQ SCH (21:32)
[2024-03-22 21:40] LABS: Appearance,Urine Cloudy (Clear); Bilirubin,Urine Negative (Negative); Blood,Urine Negative (Negative); Color,Urine Colorless; Glucose,Urine (UA) Negative (Negative); Ketones,Urine Negative (Negative); Leukocyte Esterase,Urine Negative (Negative); Mucus,Urine Rare /hpf; Nitrite,Urine Negative (Negative); Protein,Urine Negative (Negative); RBC,Urine <1 /hpf (0-5); Specific Gravity,Urine 1.012 (1.001-1.035); Urobilinogen,Urine <2.0 mg/dL (<2.0); WBC,Urine <1 /hpf (0-5)
--- NOTE | 2024-03-22 21:41 | P.CONS ---
History of Present Illness - Reason for Consult Consult date: 03/22/24 Osteomyelitis Requesting physician: Fabiola Sheikh - Chief Complaint Right fourth toe discoloration x days - History of Present Illness Patient is a 58-year-old male with a past medical history significant for diabetes mellitus hypertension hyperlipidemia diabetic foot infection with left below the knee amputation patient presenting to the ER for evaluation of right fourth toe discoloration swelling and redness apparently he went to wipe changing the dressing the day before presentation to hospital she noticed the fourth toe becoming more discolored and look infected to her call Dr. Guzman who advised the patient to go to the hospital for admission and antibiotic therapy patient denies high-grade fever or any chills did not have significant sensation of the lower extremity has denies significant pain except some pressure without any radiation did have some foul smell and minimal drainage on presentation to the hospital the patient was afebrile subsequently did spike a fever of 100.7 F patient was tachycardic, but not hypotensive or hypoxic and admitted for supplemental oxygen patient did have white count of 9.1 creatinine was normal slightly up today at 1.36 lactic acid was 3.8 repeat is 0.9 liver enzymes are normal patient did have foot x-ray increased lucency of the metatarsophalangeal joint of the fourth digit concerning for osteomyelitis patient was started on vancomycin and Zosyn infectious disease was consulted for further management of antibiotic therapy Review of Systems Positive point and negatives has been mentioned in the HPI, complete review of systems was performed and all other systems are negative Past Medical History Past Medical History: Diabetes Mellitus, Hyperlipidemia, Hypertension, Vascular Disorder Additional Past Medical History / Comment(s): september 09 rt great toe amputatied has wound care there History of Any Multi-Drug Resistant Organisms: MRSA Year Discovered:: 09/09/22 MDRO Source:: Right Foot Past Surgical History: Orthopedic Surgery, Tonsillectomy Additional Past Surgical History / Comment(s): BKA -2019 lft, rt great toe amp, lft knee arthroscopy. angiogram Past Anesthesia/Blood Transfusion Reactions: No Reported Reaction Additional Past Anesthesia/Blood Transfusion Reaction / Comm: no blood transfusion hx Past Psychological History: No Psychological Hx Reported Smoking Status: Never smoker Past Alcohol Use History: Occasional Past Drug Use History: None Reported - Past Family History Mother Family Medical History: Cancer Additional Family Medical History / Comment(s): unknown Medications and Allergies Home Medications Medication Instructions Recorded Confirmed Type Pioglitazone [Actos] 15 mg PO DAILY 09/08/22 03/21/24 History lisinopriL [Zestril] 10 mg PO BID 09/08/22 03/21/24 History metFORMIN HCL 1,000 mg PO BID 09/08/22 03/21/24 History Aspirin EC [Ecotrin Low Dose] 81 mg PO HS 01/21/23 03/21/24 History Magnesium Oxide [Magnesium] 500 mg PO HS 07/21/23 03/21/24 History Atorvastatin [Lipitor] 20 mg PO DAILY 03/21/24 03/21/24 History Semaglutide [Ozempic] 0.5 mg SQ WE 03/21/24 03/21/24 History Allergies Allergy/AdvReac Type Severity Reaction Status Date / Time wasp Allergy Severe Anaphylaxis, Uncoded 03/21/24 17:15 Swelling, heart palpatations Physical Exam Vitals: Vital Signs Temp Pulse Pulse Resp BP BP Pulse Ox 03/22/24 10:56 17 03/22/24 07:41 98.4 F 82 17 123/78 97 03/22/24 04:00 98.9 F 03/22/24 01:25 100.7 F H 03/21/24 23:07 98.8 F 92 18 128/79 99 03/21/24 22:37 93 18 110/69 97 03/21/24 19:24 90 18 118/73 98 03/21/24 16:12 98.6 F 90 16 127/74 99 Intake and Output 03/21/24 03/22/24 03/22/24 22:59 06:59 14:59 Other: Weight 113.398 kg 113.398 kg GENERAL DESCRIPTION: Middle-aged male lying in bed, no distress. No tachypnea or accessory muscle of respiration use. HEENT: Shows Pallor , no scleral icterus. Oral mucous membrane is dry. No pharyngeal erythema or thrush NECK: Trachea central, no thyromegaly. LUNGS: Unlabored breathing. Clear to auscultation anteriorly. No wheeze or crackle. HEART: S1, S2, regular rate and rhythm. No loud murmur ABDOMEN: Soft, no tenderness , guarding or rigidity, no organomegaly EXTREMITIES: Right fourth toe discoloration and foul-smelling SKIN: No rash, no masses palpable. NEUROLOGICAL: The patient is awake, alert, oriented x3, mood and affect normal. Results CBC & Chem 7: 03/21/24 17:05 03/22/24 02:57 Labs: Abnormal Lab Results - Last 24 Hours (Table) 03/21/24 03/21/24 03/21/24 Range/Units 17:05 17:05 17:05 RBC 3.41 L (4.30-5.90) m/uL Hgb 10.0 L (13.0-17.5) gm/dL Hct 31.5 L (39.0-53.0) % Sodium (137-145) mmol/L Chloride (98-107) mmol/L Carbon Dioxide (22-30) mmol/L BUN 23 H (9-20) mg/dL Creatinine (0.66-1.25) mg/dL Glucose 139 H (74-99) mg/dL POC Glucose (mg/dL) (70-110) mg/dL Plasma Lactic Acid Hiro 2.3 H* (0.7-2.0) mmol/L 03/21/24 03/22/24 03/22/24 Range/Units 21:45 00:22 02:57 RBC (4.30-5.90) m/uL Hgb (13.0-17.5) gm/dL Hct (39.0-53.0) % Sodium 136 L (137-145) mmol/L Chloride 111 H (98-107) mmol/L Carbon Dioxide 20 L (22-30) mmol/L BUN 22 H (9-20) mg/dL Creatinine 1.36 H (0.66-1.25) mg/dL Glucose 142 H (74-99) mg/dL POC Glucose (mg/dL) (70-110) mg/dL Plasma Lactic Acid Hiro 3.3 H* 2.2 H* (0.7-2.0) mmol/L 03/22/24 Range/Units 06:33 RBC (4.30-5.90) m/uL Hgb (13.0-17.5) gm/dL Hct (39.0-53.0) % Sodium (137-145) mmol/L Chloride (98-107) mmol/L Carbon Dioxide (22-30) mmol/L BUN (9-20) mg/dL Creatinine (0.66-1.25) mg/dL Glucose (74-99) mg/dL POC Glucose (mg/dL) 135 H (70-110) mg/dL Plasma Lactic Acid Hiro (0.7-2.0) mmol/L Assessment and Plan (1) Gangrene of toe of right foot Current Visit: Yes Status: Acute Code(s): I96 - GANGRENE, NOT ELSEWHERE CLASSIFIED SNOMED Code(s): 04309678305300644 (2) Diabetic foot infection Current Visit: Yes Status: Acute Code(s): E11.628 - TYPE 2 DIABETES MELLITUS WITH OTHER SKIN COMPLICATIONS; L08.9 - LOCAL INFECTION OF THE SKIN AND SUBCUTANEOUS TISSUE, UNSP SNOMED Code(s): 933480943 (3) Osteomyelitis Current Visit: Yes Status: Acute Code(s): M86.9 - OSTEOMYELITIS, UNSPECIFIED SNOMED Code(s): 46331678 (4) Right foot ulcer Current Visit: No Status: Acute Code(s): L97.519 - NON-PRS CHRONIC ULCER OTH PRT RIGHT FOOT W UNSP SEVERITY SNOMED Code(s): 787198789 Plan: [facility] in this patient who did have fever elevated white count source is right fourth toe diabetic foot infection with right gangrene and underlying osteomyelitis we will need to cover for the polymicrobial estefania associated with diabetic foot infection 2-patient noted to have slight worsening of his kidney function since admission and high risk for nephrotoxicity from vancomycin 3-we will discontinue vancomycin and daptomycin and continue Zosyn 4-await surgical amputation and deep culture at the time of surgery We will follow on clinical condition and cultures to further adjust medication if needed Thank you for this consultation we will follow the patient along with you Dictation was produced using [employer] dictation software. please excuse any grammatical, word or spelling errors. Time with Patient: Greater than 30
--- NOTE | 2024-03-22 22:23 | OP ---
OPERATIVE REPORT DATE OF SERVICE : PREOPERATIVE DIAGNOSIS: Wet gangrene in the right foot fourth toe. POSTOPERATIVE DIAGNOSIS: Wet gangrene in the right foot fourth toe. PROCEDURE PERFORMED: Ray amputation of the right foot fourth toe at metatarsophalangeal joint including head of the metatarsal bone with excision of all necrotic tissue. DESCRIPTION OF PROCEDURE: The patient was brought to the operating room. Right foot was prepped and drapes applied in a sterile manner. Under local and IV sedation, incision was made over the dorsal aspect of the foot, deepened through skin fat and the tendons were divided. Then, this incision was extended on the plantar aspect, deepened through skin, fat, tendons were divided. Then, we used the periosteum elevator. The periosteum was elevated from the metatarsophalangeal joint. Bone cutter was used to remove the head of the metatarsal bone along with the fourth toe. This specimen was sent for culture, aerobic and anaerobic. Bleeding points were controlled and the wound was irrigated with hydrogen peroxide and saline. We placed Aquacel silver rope in the wound and a pressure dressing was applied. The patient tolerated the procedure well. The patient was transferred to the recovery room in satisfactory condition. MMODL / IJN: [id number] /
[2024-03-22] MEDS: metroNIDAZOLE 500 MG TAB PO SCH (23:03)
[2024-03-23 05:59] LABS: Glucose,Whole Blood 121 mg/dL (70-110)
[2024-03-23] MEDS ORDERED: INSULIN ASPART (NovoLOG) 100 UNIT/ML VIAL SQ SCH (07:30)
[2024-03-23 11:02] LABS: % Iron Saturation 7.73 (15.00-50.00); BUN/Creat Ratio 10.85 Ratio (12.00-20.00); Blood Urea Nitrogen 14.1 mg/dL (9.0-27.0); Calcium 8.3 mg/dL (8.7-10.3); Carbon Dioxide 19.2 mmol/L (21.6-31.8); Chloride 106 mmol/L (96-109); Glucose 112 mg/dL (70-110); Iron 17 UG/DL (65-175); Potassium 4.6 mmol/L (3.5-5.5); Sodium 137 mmol/L (135-145); Total Iron Binding Capacity 220 UG/DL (228-460)
[2024-03-23] MEDS: NON FORMULARY DRUG (Semaglutide [Ozempic] 0.25 MG/0.368 ML Pen.Injctr) SQ SCH (11:46)
[2024-03-23 11:58] LABS: Glucose,Whole Blood 138 mg/dL (70-110)
--- NOTE | 2024-03-23 16:39 | P.PN ---
Progress Note - Text Progress Note Date: 03/23/24 Chief Complaint: Right foot fourth toe gangrene patient is a 58-year-old gentleman , who follows with Dr. Jama. Chronic stable medical condition include diabetes, hypertension, hyperlipidemia, PAD, right big toe amputated August 2022. Left below-knee amputation 2018. With the prosthesis Patient goes to the wound care center every 2 weeks to be followed by Dr. Guzman from vascular. For about 2 days patient noticed to having low-grade fever and chills. And patient right foot fourth toe became discolored slight pain, 24 hours prior to presentation. Noticed by his . Gangrene changes. Patient sent in by Dr. Guzman for possible amputation. Patient denies any cardiac symptoms. No chest pain or shortness of breath. March 23: Patient yesterday underwent ray amputation of the right foot fourth toe at MTP joint including head of the metatarsal with excision of all necrotic tissue per Dr. Guzman. Dressing in place. Pain well-controlled. Had 100% of his lunch today. Blood cultures from March 21 growing gram-positive cocci in clusters. On IV cefazolin. ID following. Repeat blood cultures drawn today. Otherwise patient comfortable. Ferritin deficiency anemia will give IV Ferrlecit Active Medications Acetaminophen (Acetaminophen Tab 325 Mg Tab) 650 mg PO Q6HR PRN PRN Reason: Mild Pain or Fever > 100.5 Last Admin: 03/22/24 01:25 Dose: 650 mg Aspirin (Aspirin 81 Mg) 81 mg PO HS [facility] Last Admin: 03/22/24 21:09 Dose: 81 mg Atorvastatin Calcium (Atorvastatin 20 Mg Tab) 20 mg PO HS [facility] Last Admin: 03/22/24 21:09 Dose: 20 mg Enoxaparin Sodium (Enoxaparin 40 Mg/0.4 Ml Syringe) 40 mg SQ DAILY [facility] Last Admin: 03/23/24 08:28 Dose: 40 mg Sodium Chloride (Saline 0.9%) 1,000 mls @ 100 mls/hr IV .Q10H [facility] Last Admin: 03/23/24 15:28 Dose: 100 mls/hr Cefazolin Sodium 2 gm/ Sodium (Chloride) 50 mls @ 100 mls/hr IVPB Q8HR [facility]; Protocol Last Admin: 03/23/24 15:28 Dose: 100 mls/hr Insulin Aspart (Insulin Aspart (Novolog) 100 Unit/Ml Vial) 0 unit SQ ACHS [facility]; Protocol Last Admin: 03/23/24 11:56 Dose: Not Given Lisinopril (Lisinopril 10 Mg Tab) 10 mg PO BID [facility] Last Admin: 03/23/24 08:26 Dose: 10 mg Magnesium Oxide (Magnesium Oxide 400 Mg Tab) 400 mg PO HS [facility] Last Admin: 03/22/24 21:09 Dose: 400 mg Metronidazole (Metronidazole 500 Mg Tab) 500 mg PO TID [facility]; Protocol Last Admin: 03/23/24 15:28 Dose: 500 mg Naloxone HCl (Naloxone 0.4 Mg/Ml 1 Ml Vial) 0.2 mg IV Q2M PRN PRN Reason: Opioid Reversal Non-Formulary Medication (Semaglutide [Ozempic]) 0.5 mg SQ WE [facility] Last Admin: 03/23/24 11:46 Dose: Not Given Ondansetron HCl (Ondansetron 4 Mg/2 Ml Vial) 4 mg IVP Q8HR PRN PRN Reason: Nausea And Vomiting Last Admin: 03/22/24 13:49 Dose: 4 mg Pioglitazone HCl (Pioglitazone 15 Mg Tab) 15 mg PO DAILY [facility] Last Admin: 03/23/24 08:26 Dose: 15 mg Past medical history to include: Chronic anemia, essential hypertension, hyperlipidemia, diabetes mellitus type 2, right big toe amputation August 2022, PAD 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 No smoking. 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 On examination: VITAL SIGNS: Afebrile, 80, 17, 123/72, 97% room air GENERAL APPEARANCE: Up in wheelchair. HEENT: Normal external appearance of nose and ear. Oral cavity normal EYES: Pupils equal. Conjunctiva normal. NECK: JVD not raised. Mass not palpable. RESPIRATORY: Respiratory effort normal. Lungs clear to auscultation. CARDIOVASCULAR: First and second sounds normal. No edema. ABDOMEN: Soft. Liver and spleen not palpable. No tenderness. No mass palpable. PSYCHIATRY: Alert and oriented x3. Mood and affect tired EXTREMITY: Left below-knee amputation. Right foot big toe amputation. Right foot in a dressing [amputation of right fourth toe] INVESTIGATIONS, reviewed in the clinical context: Renal ultrasound: Renal ultrasound does not report any evidence of CKD. UA: Negative for protein March 23: ESR 69. Potassium 4.6. Creatinine 1.3. Iron 17 TIBC 220% saturation 7.73 transferrin 157 ferritin 547 CRP 12.3 vitamin B12 224 folate 7.6 March 22:Sodium 136 potassium 4.3 BUN 22 creatinine 1.36 March 21: White count 9.1 hemoglobin 10 platelets 333. Creatinine 1.21 Lactic acid 2.3, 3.3. X-ray right foot complete: Increased lucency at the metatarsophalangeal joint of the fourth digit concerning for osteomyelitis. Assessment and plan: - acute osteomyelitis of the right foot fourth digit at the metatarsophalangeal joint. IV cefazolin-ID following Amputation right foot [address] Guzman March 22 -Chronic right foot right foot wound with ray-amputation of the big toe in August 2022. Being followed by Dr. Guzman at the wound care center -Normocytic anemia, stable and chronic Iron deficiency anemia. Give IV iron. Normal B12 and folate -Essential Hypertension, uncontrolled Zestril -PAD Added Lipitor -Suspect chronic kidney disease from diabetic nephropathy and nephrosclerosis Check renal ultrasound. UA. -Obesity BMI 32.1 Weight loss measures -Hyperlipidemia Lipitor -Diabetes mellitus, type II, on oral hypoglycemic Ozempic. Metformin. Actos. Follow Accu-Cheks. -Full code Patient's pain is well-controlled in the right foot. Eating well. Given IV iron. Discussed. Past Medical History Past Medical History: Diabetes Mellitus, Hyperlipidemia, Hypertension, Vascular Disorder Additional Past Medical History / Comment(s): september 09 rt great toe amputatied has wound care there History of Any Multi-Drug Resistant Organisms: MRSA Date of last positivie culture/infection: 09/09/22 MDRO Source:: Right Foot Past Surgical History: Orthopedic Surgery, Tonsillectomy Additional Past Surgical History / Comment(s): BKA -2019 lft, rt great toe amp, lft knee arthroscopy. angiogram Past Anesthesia/Blood Transfusion Reactions: No Reported Reaction Additional Past Anesthesia/Blood Transfusion Reaction / Comment(s): no blood transfusion hx Past Psychological History: No Psychological Hx Reported Smoking Status: Never smoker Past Alcohol Use History: Occasional Past Drug Use History: None Reported
[2024-03-23 16:53] LABS: Glucose,Whole Blood 170 mg/dL (70-110)
[2024-03-23] MEDS: SODIUM FERRIC GLUCONAT-SUCROSE 125 MG in SODIUM CHLORIDE 0.9% 100 ML IVPB SCH (17:09)
[2024-03-23 21:50] LABS: Glucose,Whole Blood 165 mg/dL (70-110)
[2024-03-24 06:00] LABS: Glucose,Whole Blood 130 mg/dL (70-110)
--- NOTE | 2024-03-24 08:44 | PN ---
PROGRESS NOTE This patient came with a wet gangrene in the right foot 4th toe. The patient had a callus on the plantar aspect also, which was infected. The patient had a ray amputation of the right foot 4th toe along with excision of the callus. The patient has history of diabetes. Today, we changed the dressing using Aquacel silver rope. The base of the wound is clean. Mild drainage noted. We will continue with Aquacel silver rope and IV antibiotics under care of Infectious Disease. MMODL / IJN: [id number] /
--- NOTE | 2024-03-24 08:54 | P.PN ---
Subjective Progress Note Date: 03/23/24 Principal diagnosis: Reason for follow-up is right diabetic foot infection with gangrene, MSSA bacteremia Patient is a 58-year-old male with a past medical history significant for diabetes mellitus hypertension hyperlipidemia diabetic foot infection with left below the knee amputation patient presenting to the ER for evaluation of right fourth toe discoloration, patient has been diagnosed with right fourth toe gangrene in this patient who is status post amputation of the right fourth toe completed on 03/22/2024. On today's evaluation that 03/23/2024, Patient is afebrile patient is currently on room air and denies having any shortness of breath, the patient denies any chest pain or cough, the patient denies any nausea vomiting did not have any abdominal pain and no diarrhea pain to right foot is currently controlled. No CBC was done today creatinine is 1.3 blood cultures came back positive with MSSA Objective - Vital Signs Vital signs: Vital Signs Temp 97.9 F 03/23/24 07:42 Pulse 89 03/23/24 07:42 Resp 16 03/23/24 07:42 BP 143/81 03/23/24 07:42 Pulse Ox 97 03/23/24 07:42 FiO2 Intake & Output 03/22/24 03/23/24 03/23/24 18:59 06:59 18:59 Intake Total 400 1680 Output Total 4 800 Balance 396 880 Intake: IV 400 Intake, IV Titration 1200 Amount Sodium Chloride 0.9% 1, 1200 000 ml @ 100 mls/hr IV . Q10H [facility] Rx#:[id number] Oral 480 Output: Urine 800 Estimated Blood Loss 4 Other: # Voids 2 1 1 # Bowel Movements 1 - Exam GENERAL DESCRIPTION: Middle-age male up in the chair in no distress RESPIRATORY SYSTEM: Unlabored breathing , decreased breath sounds at bases HEART: S1 S2 regular rate and rhythm , ABDOMEN: Soft , no tenderness EXTREMITIES: Right foot is currently dressed - Labs CBC & Chem 7: 03/21/24 17:05 03/23/24 05:29 Labs: Abnormal Lab Results - Last 24 Hours (Table) 03/22/24 03/22/24 03/22/24 Range/Units 13:48 16:59 20:35 ESR (0-20) mm/Hr Carbon Dioxide (21.6-31.8) mmol/L BUN/Creatinine Ratio (12.00-20.00) Ratio Glucose (70-110) mg/dL POC Glucose (mg/dL) 133 H 126 H 200 H (70-110) mg/dL Calcium (8.7-10.3) mg/dL Iron (65-175) UG/DL TIBC (228-460) UG/DL % Saturation (15.00-50.00) Transferrin (204.0-354.0) mg/dL Ferritin (22.0-322.0) ng/mL C-Reactive Protein (0.00-0.80) mg/dL Urine Mucus (None) /hpf 03/22/24 03/23/24 03/23/24 Range/Units 21:15 05:29 05:29 ESR 69 H (0-20) mm/Hr Carbon Dioxide 19.2 L (21.6-31.8) mmol/L BUN/Creatinine Ratio 10.85 L (12.00-20.00) Ratio Glucose 112 H (70-110) mg/dL POC Glucose (mg/dL) (70-110) mg/dL Calcium 8.3 L (8.7-10.3) mg/dL Iron 17 L (65-175) UG/DL TIBC 220 L (228-460) UG/DL % Saturation 7.73 L (15.00-50.00) Transferrin 157.0 L (204.0-354.0) mg/dL Ferritin 547.0 H (22.0-322.0) ng/mL C-Reactive Protein 12.30 H (0.00-0.80) mg/dL Urine Mucus Rare H (None) /hpf 03/23/24 03/23/24 Range/Units 05:57 11:56 ESR (0-20) mm/Hr Carbon Dioxide (21.6-31.8) mmol/L BUN/Creatinine Ratio (12.00-20.00) Ratio Glucose (70-110) mg/dL POC Glucose (mg/dL) 121 H 138 H (70-110) mg/dL Calcium (8.7-10.3) mg/dL Iron (65-175) UG/DL TIBC (228-460) UG/DL % Saturation (15.00-50.00) Transferrin (204.0-354.0) mg/dL Ferritin (22.0-322.0) ng/mL C-Reactive Protein (0.00-0.80) mg/dL Urine Mucus (None) /hpf Microbiology - Last 24 Hours (Table) 03/22/24 15:27 Gram Stain - Preliminary Toe - Right Fourth 03/21/24 17:05 Blood Culture Gram Stain - Preliminary Blood Blood Culture - Preliminary Staphylococcus aureus Molecular ID Assessment and Plan (1) Gangrene of toe of right foot Current Visit: Yes Status: Acute Code(s): I96 - GANGRENE, NOT ELSEWHERE CLASSIFIED SNOMED Code(s): 54153729025259119 (2) Diabetic foot infection Current Visit: Yes Status: Acute Code(s): E11.628 - TYPE 2 DIABETES MELLITUS WITH OTHER SKIN COMPLICATIONS; L08.9 - LOCAL INFECTION OF THE SKIN AND SUBCUTANEOUS TISSUE, UNSP SNOMED Code(s): 422669983 (3) Osteomyelitis Current Visit: Yes Status: Acute Code(s): M86.9 - OSTEOMYELITIS, UNSPECIFIED SNOMED Code(s): 72748999 (4) Right foot ulcer Current Visit: No Status: Acute Code(s): L97.519 - NON-PRS CHRONIC ULCER OTH PRT RIGHT FOOT W UNSP SEVERITY SNOMED Code(s): 464029635 (5) Bacteremia due to methicillin susceptible Staphylococcus aureus (MSSA) Current Visit: Yes Status: Acute Code(s): R78.81 - BACTEREMIA; B95.61 - METHICILLIN SUSCEP STAPH INFCT CAUSING DIS CLASSD [id number] SNOMED Code(s): 774954928 Plan: 1patient presented hospital with sepsis in this patient who did have fever elevated white count source is right fourth toe diabetic foot infection with right gangrene and underlying osteomyelitis we will need to cover for the polymicrobial estefania associated with diabetic foot infection 2-patient with MSSA bacteremia source likely right diabetic foot infection, blood culture repeated document clearance of his bacteremia 3Zosyn and daptomycin has been discontinued 4patient started on cefazolin and Flagyl will likely need PICC line for outpatient IV antibiotic therapy once he cleared his bacteremia Dictation was produced using [employer] dictation software. please excuse any grammatical, word or spelling errors. Time with Patient: Less than 30
[2024-03-24 11:42] LABS: Glucose,Whole Blood 187 mg/dL (70-110)
--- NOTE | 2024-03-24 14:47 | P.PN ---
Subjective Progress Note Date: 03/24/24 Principal diagnosis: Reason for follow-up is right diabetic foot infection with gangrene, MSSA bacteremia Patient is a 58-year-old male with a past medical history significant for diabetes mellitus hypertension hyperlipidemia diabetic foot infection with left below the knee amputation patient presenting to the ER for evaluation of right fourth toe discoloration, patient has been diagnosed with right fourth toe gangrene in this patient who is status post amputation of the right fourth toe completed on 03/22/2024. On today's evaluation that 03/24/2024, patient has been afebrile, patient is breathing comfortably and is currently on room air, patient denies having any significant cough no chest pain, patient denies nausea vomiting or diarrhea and no abdominal pain pain to the right foot is controlled. No new lab has been obtained today local culture with Staph aureus and Corynebacterium blood culture with MSSA Objective - Vital Signs Vital signs: Vital Signs Temp 98.2 F 03/24/24 13:23 Pulse 78 03/24/24 13:23 Resp 17 03/24/24 13:23 BP 126/73 03/24/24 13:23 Pulse Ox 99 03/24/24 13:23 FiO2 Intake & Output 03/23/24 03/24/24 03/24/24 18:59 06:59 18:59 Intake Total 1200 Balance 1200 Intake: Intake, IV Titration 1200 Amount Sodium Chloride 0.9% 1, 1200 000 ml @ 100 mls/hr IV . Q10H [facility] Rx#:[id number] Other: # Voids 1 # Bowel Movements 1 - Exam GENERAL DESCRIPTION: Middle-age male up in the chair in no distress RESPIRATORY SYSTEM: Unlabored breathing , decreased breath sounds at bases HEART: S1 S2 regular rate and rhythm , ABDOMEN: Soft , no tenderness EXTREMITIES: Right foot is currently dressed - Labs CBC & Chem 7: 03/21/24 17:05 03/23/24 05:29 Labs: Abnormal Lab Results - Last 24 Hours (Table) 03/23/24 03/23/24 03/24/24 Range/Units 16:51 21:49 05:59 POC Glucose (mg/dL) 170 H 165 H 130 H (70-110) mg/dL 03/24/24 Range/Units 11:40 POC Glucose (mg/dL) 187 H (70-110) mg/dL Microbiology - Last 24 Hours (Table) 03/23/24 05:29 Blood Culture - Preliminary Blood 03/21/24 17:05 Blood Culture Gram Stain - Final Blood Blood Culture - Final Staphylococcus aureus 03/22/24 15:27 Gram Stain - Preliminary Toe - Right Fourth Tissue Culture - Preliminary Presumptive Staph aureus Corynebacterium striatum group Assessment and Plan (1) Gangrene of toe of right foot Current Visit: Yes Status: Acute Code(s): I96 - GANGRENE, NOT ELSEWHERE CLASSIFIED SNOMED Code(s): 43776129171643482 (2) Diabetic foot infection Current Visit: Yes Status: Acute Code(s): E11.628 - TYPE 2 DIABETES MELLITUS WITH OTHER SKIN COMPLICATIONS; L08.9 - LOCAL INFECTION OF THE SKIN AND SUBCUTANEOUS TISSUE, UNSP SNOMED Code(s): 718433107 (3) Osteomyelitis Current Visit: Yes Status: Acute Code(s): M86.9 - OSTEOMYELITIS, UNSPECIFIED SNOMED Code(s): 69572721 (4) Right foot ulcer Current Visit: No Status: Acute Code(s): L97.519 - NON-PRS CHRONIC ULCER OTH PRT RIGHT FOOT W UNSP SEVERITY SNOMED Code(s): 622426964 (5) Bacteremia due to methicillin susceptible Staphylococcus aureus (MSSA) Current Visit: Yes Status: Acute Code(s): R78.81 - BACTEREMIA; B95.61 - METHICILLIN SUSCEP STAPH INFCT CAUSING DIS CLASSD ELSWHR SNOMED Code(s): 870892500 Plan: 1patient presented hospital with sepsis in this patient who did have fever elevated white count source is right fourth toe diabetic foot infection with right gangrene and underlying osteomyelitis we will need to cover for the polymicrobial estefania associated with diabetic foot infection 2-patient with MSSA bacteremia source likely right diabetic foot infection, blood culture repeated document clearance of his bacteremia 3patient to continue with cefazolin and Flagyl, will place a PICC line for outpatient antibiotic once he cleared his bacteremia Dictation was produced using [employer] dictation software. please excuse any grammatical, word or spelling errors. Time with Patient: Less than 30
[2024-03-24 16:17] LABS: Glucose,Whole Blood 160 mg/dL (70-110)
--- NOTE | 2024-03-24 16:59 | P.PN ---
Progress Note - Text Progress Note Date: 03/24/24 Chief Complaint: Right foot fourth toe gangrene patient is a 58-year-old gentleman , who follows with Dr. Jama. Chronic stable medical condition include diabetes, hypertension, hyperlipidemia, PAD, right big toe amputated August 2022. Left below-knee amputation 2018. With the prosthesis Patient goes to the wound care center every 2 weeks to be followed by Dr. Guzman from vascular. For about 2 days patient noticed to having low-grade fever and chills. And patient right foot fourth toe became discolored slight pain, 24 hours prior to presentation. Noticed by his . Gangrene changes. Patient sent in by Dr. Guzman for possible amputation. Patient denies any cardiac symptoms. No chest pain or shortness of breath. March 23: Patient yesterday underwent ray amputation of the right foot fourth toe at MTP joint including head of the metatarsal with excision of all necrotic tissue per Dr. Guzman. Dressing in place. Pain well-controlled. Had 100% of his lunch today. Blood cultures from March 21 growing gram-positive cocci in clusters. On IV cefazolin. ID following. Repeat blood cultures drawn today. Otherwise patient comfortable. Ferritin deficiency anemia will give IV Ferrlecit March 24: Patient blood culture positive from March 21 for MSSA. Also wound culture growing Staph aureus and Corynebacterium stratum. Patient has no pain in his foot. Tolerating his diet well. On IV cefazolin. DC IV fluids. Breathing stable. Discussed with patient. Active Medications Acetaminophen (Acetaminophen Tab 325 Mg Tab) 650 mg PO Q6HR PRN PRN Reason: Mild Pain or Fever > 100.5 Last Admin: 03/22/24 01:25 Dose: 650 mg Aspirin (Aspirin 81 Mg) 81 mg PO HS [facility] Last Admin: 03/23/24 22:04 Dose: 81 mg Atorvastatin Calcium (Atorvastatin 20 Mg Tab) 20 mg PO HS [facility] Last Admin: 03/23/24 22:04 Dose: 20 mg Enoxaparin Sodium (Enoxaparin 40 Mg/0.4 Ml Syringe) 40 mg SQ DAILY [facility] Last Admin: 03/24/24 09:00 Dose: 40 mg Ferric Sodium Gluconate 125 mg (/ Sodium Chloride) 110 mls @ 100 mls/hr IVPB DAILY [facility] Stop: 03/25/24 10:05 Last Admin: 03/24/24 09:50 Dose: 100 mls/hr Cefazolin Sodium 2 gm/ Sodium (Chloride) 50 mls @ 100 mls/hr IVPB Q8H [facility]; Protocol Insulin Aspart (Insulin Aspart (Novolog) 100 Unit/Ml Vial) 0 unit SQ ACHS [facility]; Protocol Last Admin: 03/24/24 12:15 Dose: 2 unit Lisinopril (Lisinopril 10 Mg Tab) 10 mg PO BID [facility] Last Admin: 03/24/24 09:01 Dose: 10 mg Magnesium Oxide (Magnesium Oxide 400 Mg Tab) 400 mg PO HS [facility] Last Admin: 03/23/24 22:04 Dose: 400 mg Metronidazole (Metronidazole 500 Mg Tab) 500 mg PO TID [facility]; Protocol Last Admin: 03/24/24 15:24 Dose: 500 mg Naloxone HCl (Naloxone 0.4 Mg/Ml 1 Ml Vial) 0.2 mg IV Q2M PRN PRN Reason: Opioid Reversal Non-Formulary Medication (Semaglutide [Ozempic]) 0.5 mg SQ WE [facility] Last Admin: 03/23/24 11:46 Dose: Not Given Ondansetron HCl (Ondansetron 4 Mg/2 Ml Vial) 4 mg IVP Q8HR PRN PRN Reason: Nausea And Vomiting Last Admin: 03/22/24 13:49 Dose: 4 mg Pioglitazone HCl (Pioglitazone 15 Mg Tab) 15 mg PO DAILY [facility] Last Admin: 03/24/24 09:01 Dose: 15 mg Past medical history to include: Chronic anemia, essential hypertension, hyperlipidemia, diabetes mellitus type 2, right big toe amputation August 2022, PAD 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 No smoking. 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 On examination: VITAL SIGNS: 98.2, 78, 17, 126 per 73, 99% room air GENERAL APPEARANCE: Sitting up in bed, comfortable HEENT: Normal external appearance of nose and ear. Oral cavity normal EYES: Pupils equal. Conjunctiva normal. NECK: JVD not raised. Mass not palpable. RESPIRATORY: Respiratory effort normal. Lungs clear to auscultation. CARDIOVASCULAR: First and second sounds normal. No edema. ABDOMEN: Soft. Liver and spleen not palpable. No tenderness. No mass palpable. PSYCHIATRY: Alert and oriented x3. Mood and affect tired EXTREMITY: Left below-knee amputation. Right foot big toe amputation. Right foot in a dressing [amputation of right fourth toe] INVESTIGATIONS, reviewed in the clinical context: Renal ultrasound: Renal ultrasound does not report any evidence of CKD. UA: Negative for protein March 23: ESR 69. Potassium 4.6. Creatinine 1.3. Iron 17 TIBC 220% saturation 7.73 transferrin 157 ferritin 547 CRP 12.3 vitamin B12 224 folate 7.6 March 22:Sodium 136 potassium 4.3 BUN 22 creatinine 1.36 March 21: White count 9.1 hemoglobin 10 platelets 333. Creatinine 1.21 Lactic acid 2.3, 3.3. X-ray right foot complete: Increased lucency at the metatarsophalangeal joint of the fourth digit concerning for osteomyelitis. Assessment and plan: - acute osteomyelitis of the right foot fourth digit at the metatarsophalangeal joint. IV cefazolin-ID following Amputation right foot [address] Guzman March 22. 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 Being followed by Dr. Guzman at the wound care center -Normocytic anemia, stable and chronic Iron deficiency anemia. Give IV iron. 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 Metformin. Actos. Follow Accu-Cheks. -Full code Current treatment plan. Await results of repeat blood culture. Repeat labs tomorrow. Past Medical History Past Medical History: Diabetes Mellitus, Hyperlipidemia, Hypertension, Vascular Disorder Additional Past Medical History / Comment(s): september 09 rt great toe amputatied has wound care there History of Any Multi-Drug Resistant Organisms: MRSA Date of last positivie culture/infection: 09/09/22 MDRO Source:: Right Foot Past Surgical History: Orthopedic Surgery, Tonsillectomy Additional Past Surgical History / Comment(s): BKA -2019 lft, rt great toe amp, lft knee arthroscopy. angiogram Past Anesthesia/Blood Transfusion Reactions: No Reported Reaction Additional Past Anesthesia/Blood Transfusion Reaction / Comment(s): no blood transfusion hx Past Psychological History: No Psychological Hx Reported Smoking Status: Never smoker Past Alcohol Use History: Occasional Past Drug Use History: None Reported
[2024-03-24 20:31] LABS: Glucose,Whole Blood 183 mg/dL (70-110)
--- NOTE | 2024-03-24 21:15 | US ---
EXAMINATION TYPE: US venous doppler duplex LE RT DATE OF EXAM: 03/24/2024 7:23 PM COMPARISON: NONE CLINICAL INDICATION: Male, 58 years old with history of rule out dvt; Patient states lump near ankle, no redness or warmth. No hx DVT. Patient not on thinners TECHNIQUE: The lower extremity deep venous system is examined utilizing real time linear array sonog markel with graded compression, color doppler sonography, and spectral doppler. SIDE PERFORMED: Right FINDINGS: VESSELS IMAGED: Common Femoral Vein Deep Femoral Vein Greater Saphenous Vein * Femoral Vein Popliteal Vein Small Saphenous Vein * Proximal Calf Veins (* superficial vessels) Right Leg: Appears negative for DVT today. There is a 2.2cm lymph node with a 3mm cortex seen in the right groin. Images recorded in the area of the reported lump show no discrete abnormality. IMPRESSION: No evidence of right lower extremity DVT. [facility], , 03/24/2024 9:13 PM
[2024-03-24] MEDS: HYDROcodone/APAP 7.5-325MG 1 EACH TAB PO PRN (22:28)
[2024-03-25 04:35] LABS: Basophils % (A) 0 %; Eosinophils # (A) 0.2 k/uL (0-0.7); Eosinophils % (A) 4 %; HCT 28.3 % (39.0-53.0); HGB 8.8 gm/dL (13.0-17.5); Hypochromasia Moderate; Lymphocytes # (A) 1.5 k/uL (1.0-4.8); Lymphocytes % (A) 25 %; MCH 28.9 pg (25.0-35.0); MCHC 30.9 g/dL (31.0-37.0); MCV 93.6 fL (80.0-100.0); Mean Platelet Volume 7.6; Monocytes # (A) 0.3 k/uL (0-1.0); Monocytes % (A) 5 %; Neutrophils # (A) 3.7 k/uL (1.3-7.7); Neutrophils % (A) 61 %; Platelet Count 375 k/uL (150-450); RBC 3.03 m/uL (4.30-5.90); RDW 12.9 % (11.5-15.5); WBC 6.1 k/uL (3.8-10.6)
[2024-03-25 04:53] LABS: African American GFR (CKD) 81 (>60 ml/min/1.73 sqM); Anion Gap 6 mmol/L; Blood Urea Nitrogen 15 mg/dL (9-20); Calcium 8.5 mg/dL (8.4-10.2); Carbon Dioxide 23 mmol/L (22-30); Chloride 109 mmol/L (98-107); Glucose 147 mg/dL (74-99); Non-African American GFR(CKD) 70 (>60 ml/min/1.73 sqM); Potassium 4.8 mmol/L (3.5-5.1); Sodium 138 mmol/L (137-145)
[2024-03-25 06:16] LABS: Glucose,Whole Blood 125 mg/dL (70-110)
[2024-03-25 11:33] LABS: Glucose,Whole Blood 205 mg/dL (70-110)
--- NOTE | 2024-03-25 13:59 | P.PN ---
Subjective Progress Note Date: 03/25/24 58-year-old male with a past medical history significant for diabetes mellitus hypertension hyperlipidemia diabetic foot infection with left below the knee amputation patient presenting to the ER for evaluation of right fourth toe discoloration, patient has been diagnosed with right fourth toe gangrene in this patient who is status post amputation of the right fourth toe completed on 03/22/2024. --Patient is seen and evaluated sitting up in bedside chair; denies any specific complaints Patient discussed with ID and recommending to continue to monitor cultures with plan to proceed with PICC line placement once cultures are negative; patient to be discharged home on IV antibiotics Objective - Vital Signs Vital signs: Vital Signs Temp 97.5 F L 03/25/24 07:47 Pulse 74 03/25/24 07:47 Resp 16 03/25/24 07:47 BP 138/78 03/25/24 07:47 Pulse Ox 97 03/25/24 07:47 FiO2 Intake & Output 03/24/24 03/25/24 03/25/24 18:59 06:59 18:59 Intake Total 1120 Output Total 10 Balance 1120 -10 Intake: Intake, IV Titration 160 Amount Sodium Chloride 0.9% 1, 60 000 ml @ 100 mls/hr IV . Q10H [facility] Rx#:[id number] ceFAZolin 2 gm In Sodium 100 Chloride 0.9% 50 ml @ 100 mls/hr IVPB Q8H [facility] Rx#: [id number] Oral 960 Output: Emesis 10 Other: Voiding Method Toilet # Voids 3 - Exam GENERAL APPEARANCE: Sitting up in bed, comfortable HEENT: Normal external appearance of nose and ear. Oral cavity normal EYES: Pupils equal. Conjunctiva normal. NECK: JVD not raised. Mass not palpable. RESPIRATORY: Respiratory effort normal. Lungs clear to auscultation. CARDIOVASCULAR: First and second sounds normal. No edema. ABDOMEN: Soft. Liver and spleen not palpable. No tenderness. No mass palpable. PSYCHIATRY: Alert and oriented x3. Mood and affect tired EXTREMITY: Left below-knee amputation. Right foot big toe amputation. Right foot in a dressing [amputation of right fourth toe] - Labs CBC & Chem 7: 03/25/24 03:20 03/25/24 03:20 Labs: Abnormal Lab Results - Last 24 Hours (Table) 03/24/24 03/24/2424 Range/Units 11:40 16:15 20:29 RBC (4.30-5.90) m/uL Hgb (13.0-17.5) gm/dL Hct (39.0-53.0) % MCHC (31.0-37.0) g/dL Chloride (98-107) mmol/L Glucose (74-99) mg/dL POC Glucose (mg/dL) 187 H 160 H 183 H (70-110) mg/dL 03/25/24 03/25/24 03/25/24 Range/Units 03:20 03:20 06:11 RBC 3.03 L (4.30-5.90) m/uL Hgb 8.8 L (13.0-17.5) gm/dL Hct 28.3 L (39.0-53.0) % MCHC 30.9 L (31.0-37.0) g/dL Chloride 109 H (98-107) mmol/L Glucose 147 H (74-99) mg/dL POC Glucose (mg/dL) 125 H (70-110) mg/dL Microbiology - Last 24 Hours (Table) 03/22/24 15:27 Anaerobic Culture - Preliminary Toe - Right Fourth 03/22/24 15:27 Gram Stain - Final Toe - Right Fourth Tissue Culture - Final Staphylococcus aureus Corynebacterium striatum group 03/23/24 05:29 Blood Culture - Preliminary Blood Assessment and Plan Assessment: - acute osteomyelitis of the right foot fourth digit at the metatarsophalangeal joint. IV cefazolin-ID following Amputation right foot [address] Guzman March 22. 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 Being followed by Dr. Guzman at the wound care center -Normocytic anemia, stable and chronic Iron deficiency anemia. Give IV iron. 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 Metformin. Actos. Follow Accu-Cheks. -Full code
--- NOTE | 2024-03-25 15:28 | P.PN ---
Subjective Progress Note Date: 03/25/24 Principal diagnosis: Reason for follow-up is right diabetic foot infection with gangrene, MSSA bacteremia Patient is a 58-year-old male with a past medical history significant for diabetes mellitus hypertension hyperlipidemia diabetic foot infection with left below the knee amputation patient presenting to the ER for evaluation of right fourth toe discoloration, patient has been diagnosed with right fourth toe gangrene in this patient who is status post amputation of the right fourth toe completed on 03/22/2024. On today's evaluation that 03/25/2024, Patient is afebrile this morning patient denies having any chest pain shortness of breath or cough, the patient is currently on room air, patient denies any abdominal pain no diarrhea no nausea no vomiting, denies pain to the right foot wound area. Blood culture repeat so far pending Objective - Vital Signs Vital signs: Vital Signs Temp 97.5 F L 03/25/24 07:47 Pulse 74 03/25/24 09:20 Resp 16 03/25/24 09:20 BP 138/78 03/25/24 07:47 Pulse Ox 97 03/25/24 07:47 FiO2 Intake & Output 03/24/24 03/25/24 03/25/24 18:59 06:59 18:59 Intake Total 1120 Output Total 10 Balance 1120 -10 Intake: Intake, IV Titration 160 Amount Sodium Chloride 0.9% 1, 60 000 ml @ 100 mls/hr IV . Q10H [facility] Rx#:[id number] ceFAZolin 2 gm In Sodium 100 Chloride 0.9% 50 ml @ 100 mls/hr IVPB Q8H [facility] Rx#: [id number] Oral 960 Output: Emesis 10 Other: Voiding Method Toilet Toilet # Voids 3 - Exam GENERAL DESCRIPTION: Middle-age male up in the chair in no distress RESPIRATORY SYSTEM: Unlabored breathing , decreased breath sounds at bases HEART: S1 S2 regular rate and rhythm , ABDOMEN: Soft , no tenderness EXTREMITIES: Right foot is currently dressed - Labs CBC & Chem 7: 03/25/24 03:20 03/25/24 03:20 Labs: Abnormal Lab Results - Last 24 Hours (Table) 03/24/24 03/24/24 03/25/24 Range/Units 16:15 20:29 03:20 RBC 3.03 L (4.30-5.90) m/uL Hgb 8.8 L (13.0-17.5) gm/dL Hct 28.3 L (39.0-53.0) % MCHC 30.9 L (31.0-37.0) g/dL Chloride (98-107) mmol/L Glucose (74-99) mg/dL POC Glucose (mg/dL) 160 H 183 H (70-110) mg/dL 03/25/24 03/25/24 03/25/24 Range/Units 03:20 06:11 11:32 RBC (4.30-5.90) m/uL Hgb (13.0-17.5) gm/dL Hct (39.0-53.0) % MCHC (31.0-37.0) g/dL Chloride 109 H (98-107) mmol/L Glucose 147 H (74-99) mg/dL POC Glucose (mg/dL) 125 H 205 H (70-110) mg/dL Microbiology - Last 24 Hours (Table) 03/22/24 15:27 Anaerobic Culture - Preliminary Toe - Right Fourth 03/22/24 15:27 Gram Stain - Final Toe - Right Fourth Tissue Culture - Final Staphylococcus aureus Corynebacterium striatum group 03/23/24 05:29 Blood Culture - Preliminary Blood Assessment and Plan (1) Gangrene of toe of right foot Current Visit: Yes Status: Acute Code(s): I96 - GANGRENE, NOT ELSEWHERE CLASSIFIED SNOMED Code(s): 40117625684549210 (2) Diabetic foot infection Current Visit: Yes Status: Acute Code(s): E11.628 - TYPE 2 DIABETES MELLITUS WITH OTHER SKIN COMPLICATIONS; L08.9 - LOCAL INFECTION OF THE SKIN AND SUBCUTANEOUS TISSUE, UNSP SNOMED Code(s): 583532526 (3) Osteomyelitis Current Visit: Yes Status: Acute Code(s): M86.9 - OSTEOMYELITIS, UNSPECIFIED SNOMED Code(s): 06572803 (4) Right foot ulcer Current Visit: No Status: Acute Code(s): L97.519 - NON-PRS CHRONIC ULCER OTH PRT RIGHT FOOT W UNSP SEVERITY SNOMED Code(s): 420467397 (5) Bacteremia due to methicillin susceptible Staphylococcus aureus (MSSA) Current Visit: Yes Status: Acute Code(s): R78.81 - BACTEREMIA; B95.61 - METHICILLIN SUSCEP STAPH INFCT CAUSING DIS CLASSD ELSWHR SNOMED Code(s): 017831505 Plan: 1patient presented hospital with sepsis in this patient who did have fever elevated white count source is right fourth toe diabetic foot infection with right gangrene and underlying osteomyelitis we will need to cover for the polymicrobial estefania associated with diabetic foot infection 2-patient with MSSA bacteremia source likely right diabetic foot infection, blood culture repeated document clearance of his bacteremia 3patient to continue with cefazolin and Flagyl, will place a PICC line for outpatient antibiotic once he cleared his bacteremia, if the blood culture remains to be negative by tomorrow should be able to get a PICC line for outpatient IV antibiotics Dictation was produced using [employer] dictation software. please excuse any grammatical, word or spelling errors. Time with Patient: Less than 30
[2024-03-25 16:47] LABS: Glucose,Whole Blood 167 mg/dL (70-110)
[2024-03-25 19:26] LABS: Glucose,Whole Blood 171 mg/dL (70-110)
--- NOTE | 2024-03-25 22:56 | PN ---
PROGRESS NOTE This is a 58-year-old gentleman with history of diabetes. The patient had a gangrene of the right foot toe. We did a ray amputation. Wound had been changed with using Aquacel silver. The patient was complaining of pain in the right calf area. We did the ultrasound. The patient was negative for DVT. We continued local wound care and IV antibiotics. MAXINE / JUAN: [id number] /
[2024-03-26 06:18] LABS: Glucose,Whole Blood 162 mg/dL (70-110)
[2024-03-26 09:04] LABS: Basophils # (A) 0.04 X 10*3/uL (0.00-0.10); Basophils % (A) 0.6 %; Eosinophils # (A) 0.26 X 10*3/uL (0.04-0.35); Eosinophils % (A) 3.9 %; HCT 29.4 % (39.6-50.0); HGB 9.4 g/dL (13.0-17.0); Lymphocytes # (A) 1.39 X 10*3/uL (0.90-5.00); Lymphocytes % (A) 20.7 %; MCV 90.7 FL (80.0-97.0); Monocytes # (A) 0.53 X 10*3/uL (0.20-1.00); Monocytes % (A) 7.9 %; NRBC Per 100 WBC 0 X 10*3/uL (0.00-0.01); Neutrophils # (A) 4.35 X 10*3/uL (1.80-7.70); Platelet Count 404 X 10*3/uL (140-440); RBC 3.24 X 10*6/uL (4.40-5.60); RDW 13.6 % (11.5-14.5)
[2024-03-26 09:10] LABS: BUN/Creat Ratio 10.64 Ratio (12.00-20.00); Blood Urea Nitrogen 11.7 mg/dL (9.0-27.0); Calcium 8.4 mg/dL (8.7-10.3); Carbon Dioxide 24.8 mmol/L (21.6-31.8); Chloride 104 mmol/L (96-109); Glucose 147 mg/dL (70-110); Potassium 5.1 mmol/L (3.5-5.5); Sodium 137 mmol/L (135-145)
--- NOTE | 2024-03-26 10:44 | PN ---
PROGRESS NOTE The patient had a right foot toe amputation done. We have changed the dressing today using silver. There is mild drainage noted. Patient is on IV antibiotics under care of Infectious Disease. Next dressing will be changed on Thursday. If the patient goes home, we will follow up in the wound clinic at [facility]. MAXINE / JUAN: [id number] /
--- NOTE | 2024-03-26 11:08 | P.PN ---
Subjective 58-year-old male with a past medical history significant for diabetes mellitus hypertension hyperlipidemia diabetic foot infection with left below the knee amputation patient presenting to the ER for evaluation of right fourth toe discoloration, patient has been diagnosed with right fourth toe gangrene in this patient who is status post amputation of the right fourth toe completed on 03/22/2024. --Patient is seen and evaluated sitting up in bedside chair; denies any specific complaints Patient discussed with ID and recommending to continue to monitor cultures with plan to proceed with PICC line placement once cultures are negative; patient to be discharged home on IV antibiotics 03/26 His right foot wound with dressing in place, dressing was changed this morning with vascular surgery team No pain No other new complaint Hemoglobin 9.4 Creatinine 1.1 Currently on cefazolin for MSSA in the wound culture Objective - Vital Signs Vital signs: Vital Signs Temp 98.3 F 03/26/24 07:07 Pulse 85 03/26/24 07:07 Resp 16 03/26/24 07:07 BP 130/77 03/26/24 07:07 Pulse Ox 97 03/26/24 07:07 FiO2 Intake & Output 03/25/24 03/26/24 03/26/24 18:59 06:59 18:59 Intake Total 1060 Output Total 10 Balance -10 1060 Intake: Intake, IV Titration 100 Amount ceFAZolin 2 gm In Sodium 100 Chloride 0.9% 50 ml @ 100 mls/hr IVPB Q8H [facility] Rx#: [id number] Oral 960 Output: Emesis 10 Other: Voiding Method Toilet Toilet # Voids 2 4 - Exam GENERAL: The patient is alert and oriented x3, not in any acute distress. Well developed, well nourished. HEENT: Pupils are round and equally reacting to light. EOMI. No scleral icterus. No conjunctival pallor. Normocephalic, atraumatic. No pharyngeal erythema. No thyromegaly. CARDIOVASCULAR: S1 and S2 present. No murmurs, rubs, or gallops. PULMONARY: Chest is clear to auscultation, no wheezing , no crackles. ABDOMEN: Soft, nontender, nondistended, normoactive bowel sounds. No palpable organomegaly. MUSCULOSKELETAL: No joint swelling or deformity. -EXTREMITIES: No cyanosis, clubbing, or pedal edema./Wound with dressing in place, rest of exam is deferred to surgery team NEUROLOGICAL: Gross neurological examination did not reveal any focal deficits. Right foot ulcer SKIN: No rashes. no petechiae. - Labs CBC & Chem 7: 03/26/24 04:18 03/26/24 04:18 Labs: Abnormal Lab Results - Last 24 Hours (Table) 03/25/24 03/25/24 03/25/24 Range/Units 11:32 16:46 19:24 RBC (4.40-5.60) X 10*6/uL Hgb (13.0-17.0) g/dL Hct (39.6-50.0) % Immature Gran # (0.00-0.04) X 10*3/uL BUN/Creatinine Ratio (12.00-20.00) Ratio Glucose (70-110) mg/dL POC Glucose (mg/dL) 205 H 167 H 171 H (70-110) mg/dL Calcium (8.7-10.3) mg/dL 03/26/24 03/26/24 03/26/24 Range/Units 04:18 04:18 06:17 RBC 3.24 L (4.40-5.60) X 10*6/uL Hgb 9.4 L (13.0-17.0) g/dL Hct 29.4 L (39.6-50.0) % Immature Gran # 0.13 H (0.00-0.04) X 10*3/uL BUN/Creatinine Ratio 10.64 L (12.00-20.00) Ratio Glucose 147 H (70-110) mg/dL POC Glucose (mg/dL) 162 H (70-110) mg/dL Calcium 8.4 L (8.7-10.3) mg/dL Microbiology - Last 24 Hours (Table) 03/22/24 15:27 Anaerobic Culture - Final Toe - Right Fourth Finegoldia magna 03/23/24 05:29 Blood Culture - Preliminary Blood Assessment and Plan Assessment: - acute osteomyelitis of the right foot fourth digit at the metatarsophalangeal joint. IV cefazolin-ID following Amputation right foot [address] Guzman March 22. 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 Being followed by Dr. Guzman at the wound care center -Normocytic anemia, stable and chronic Iron deficiency anemia. Give IV iron. 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 Metformin. Actos. Follow Accu-Cheks. -Full code
[2024-03-26 11:39] LABS: Glucose,Whole Blood 174 mg/dL (70-110)
--- NOTE | 2024-03-26 14:45 | P.PN ---
Subjective Progress Note Date: 03/26/24 Principal diagnosis: Reason for follow-up is right diabetic foot infection with gangrene, MSSA bacteremia Patient is a 58-year-old male with a past medical history significant for diabetes mellitus hypertension hyperlipidemia diabetic foot infection with left below the knee amputation patient presenting to the ER for evaluation of right fourth toe discoloration, patient has been diagnosed with right fourth toe gangrene in this patient who is status post amputation of the right fourth toe completed on 03/22/2024. On today's evaluation that 03/26/2024,the patient denies any fever or any chills, patient is breathing comfortably on room air, the patient denies chest pain shortness of breath and no significant cough, patient denies abdominal pain, no nausea vomiting or diarrhea. Denies pain to the right foot. Patient white count 6.70, creatinine is 1.1 blood culture repeated so far negative Objective - Vital Signs Vital signs: Vital Signs Temp 98.3 F 03/26/24 07:07 Pulse 85 03/26/24 08:00 Resp 16 03/26/24 08:00 BP 130/77 03/26/24 07:07 Pulse Ox 97 03/26/24 07:07 FiO2 Intake & Output 03/25/24 03/26/24 03/26/24 18:59 06:59 18:59 Intake Total 1060 Output Total 10 Balance -10 1060 Intake: Intake, IV Titration 100 Amount ceFAZolin 2 gm In Sodium 100 Chloride 0.9% 50 ml @ 100 mls/hr IVPB Q8H [facility] Rx#: [id number] Oral 960 Output: Emesis 10 Other: Voiding Method Toilet Toilet Toilet # Voids 2 4 - Exam GENERAL DESCRIPTION: Middle-age male up in the chair in no distress RESPIRATORY SYSTEM: Unlabored breathing , decreased breath sounds at bases HEART: S1 S2 regular rate and rhythm , ABDOMEN: Soft , no tenderness EXTREMITIES: Right foot is currently dressed - Labs CBC & Chem 7: 03/26/24 04:18 03/26/24 04:18 Labs: Abnormal Lab Results - Last 24 Hours (Table) 03/25/24 03/25/24 03/26/24 Range/Units 16:46 19:24 04:18 RBC 3.24 L (4.40-5.60) X 10*6/uL Hgb 9.4 L (13.0-17.0) g/dL Hct 29.4 L (39.6-50.0) % Immature Gran # 0.13 H (0.00-0.04) X 10*3/uL BUN/Creatinine Ratio (12.00-20.00) Ratio Glucose (70-110) mg/dL POC Glucose (mg/dL) 167 H 171 H (70-110) mg/dL Calcium (8.7-10.3) mg/dL 03/26/24 03/26/24 03/26/24 Range/Units 04:18 06:17 11:37 RBC (4.40-5.60) X 10*6/uL Hgb (13.0-17.0) g/dL Hct (39.6-50.0) % Immature Gran # (0.00-0.04) X 10*3/uL BUN/Creatinine Ratio 10.64 L (12.00-20.00) Ratio Glucose 147 H (70-110) mg/dL POC Glucose (mg/dL) 162 H 174 H (70-110) mg/dL Calcium 8.4 L (8.7-10.3) mg/dL Microbiology - Last 24 Hours (Table) 03/23/24 05:29 Blood Culture - Preliminary Blood 03/22/24 15:27 Anaerobic Culture - Final Toe - Right Fourth Jayla hendersona Assessment and Plan (1) Gangrene of toe of right foot Current Visit: Yes Status: Acute Code(s): I96 - GANGRENE, NOT ELSEWHERE CLASSIFIED SNOMED Code(s): 16624505512582591 (2) Diabetic foot infection Current Visit: Yes Status: Acute Code(s): E11.628 - TYPE 2 DIABETES MELLITUS WITH OTHER SKIN COMPLICATIONS; L08.9 - LOCAL INFECTION OF THE SKIN AND SUBCUTANEOUS TISSUE, UNSP SNOMED Code(s): 003423833 (3) Osteomyelitis Current Visit: Yes Status: Acute Code(s): M86.9 - OSTEOMYELITIS, UNSPECIFIED SNOMED Code(s): 94122449 (4) Right foot ulcer Current Visit: No Status: Acute Code(s): L97.519 - NON-PRS CHRONIC ULCER OTH PRT RIGHT FOOT W UNSP SEVERITY SNOMED Code(s): 520137451 (5) Bacteremia due to methicillin susceptible Staphylococcus aureus (MSSA) Current Visit: Yes Status: Acute Code(s): R78.81 - BACTEREMIA; B95.61 - METHICILLIN SUSCEP STAPH INFCT CAUSING DIS CLASSD ELSWHR SNOMED Code(s): 212163233 Plan: 1patient presented hospital with sepsis in this patient who did have fever elevated white count source is right fourth toe diabetic foot infection with right gangrene and underlying osteomyelitis we will need to cover for the polymicrobial estefania associated with diabetic foot infection 2-patient with MSSA bacteremia source likely right diabetic foot infection, blood culture repeated document clearance of his bacteremia 3patient local culture currently growing MSSA and Finegoldia magna patient is covered with cefazolin and Flagyl he is cleared to get a PICC line for outpatient IV antibiotic therapy Dictation was produced using [employer] dictation software. please excuse any grammatical, word or spelling errors. Time with Patient: Less than 30
[2024-03-26 16:56] LABS: Glucose,Whole Blood 150 mg/dL (70-110)
[2024-03-26 20:19] LABS: Glucose,Whole Blood 217 mg/dL (70-110)
[2024-03-26] MEDS: FAMOTIDINE 20 MG/2 ML VIAL IV SCH (22:11)
[2024-03-27 06:10] LABS: Glucose,Whole Blood 143 mg/dL (70-110)
[2024-03-27 11:45] LABS: Glucose,Whole Blood 188 mg/dL (70-110)
--- NOTE | 2024-03-27 16:41 | P.PN ---
Subjective Progress Note Date: 03/27/24 Principal diagnosis: Reason for follow-up is right diabetic foot infection with gangrene, MSSA bacteremia Patient is a 58-year-old male with a past medical history significant for diabetes mellitus hypertension hyperlipidemia diabetic foot infection with left below the knee amputation patient presenting to the ER for evaluation of right fourth toe discoloration, patient has been diagnosed with right fourth toe gangrene in this patient who is status post amputation of the right fourth toe completed on 03/22/2024. On today's evaluation that 03/27/2024,the patient remains to be afebrile, patient is on room air not requiring supplemental oxygen and denies any shortn ess of breath no chest pain or cough.Patient denies having any nausea or vomiting, no abdominal pain and no diarrhea has been reported denies pain to the right foot. No new lab has been obtained today blood culture from 03 23 has been negative so far Objective - Vital Signs Vital signs: Vital Signs Temp 98.1 F 03/27/24 14:30 Pulse 82 03/27/24 14:30 Resp 20 03/27/24 14:30 BP 138/84 03/27/24 14:30 Pulse Ox 97 03/27/24 14:30 FiO2 Intake & Output 03/26/24 03/27/24 03/27/24 18:59 06:59 18:59 Intake Total 530 Balance 530 Intake: Intake, IV Titration 50 Amount ceFAZolin 2 gm In Sodium 50 Chloride 0.9% 50 ml @ 100 mls/hr IVPB Q8H [facility] Rx#: [id number] Oral 480 Other: Voiding Method Toilet Toilet # Voids 2 2 # Bowel Movements 1 - Exam GENERAL DESCRIPTION: Middle-age male up in the chair in no distress RESPIRATORY SYSTEM: Unlabored breathing , decreased breath sounds at bases HEART: S1 S2 regular rate and rhythm , ABDOMEN: Soft , no tenderness EXTREMITIES: Right foot is currently dressed - Labs CBC & Chem 7: 03/26/24 04:18 03/26/24 04:18 Labs: Abnormal Lab Results - Last 24 Hours (Table) 03/26/24 03/26/24 03/27/24 Range/Units 16:54 20:17 06:08 POC Glucose (mg/dL) 150 H 217 H 143 H (70-110) mg/dL 03/27/24 Range/Units 11:44 POC Glucose (mg/dL) 188 H (70-110) mg/dL Microbiology - Last 24 Hours (Table) 03/23/24 05:29 Blood Culture - Preliminary Blood Assessment and Plan (1) Gangrene of toe of right foot Current Visit: Yes Status: Acute Code(s): I96 - GANGRENE, NOT ELSEWHERE CLASSIFIED SNOMED Code(s): 88813753380554877 (2) Diabetic foot infection Current Visit: Yes Status: Acute Code(s): E11.628 - TYPE 2 DIABETES MELLITUS WITH OTHER SKIN COMPLICATIONS; L08.9 - LOCAL INFECTION OF THE SKIN AND SUBCUTANEOUS TISSUE, UNSP SNOMED Code(s): 280049257 (3) Osteomyelitis Current Visit: Yes Status: Acute Code(s): M86.9 - OSTEOMYELITIS, UNSPECIFIED SNOMED Code(s): 69780720 (4) Right foot ulcer Current Visit: No Status: Acute Code(s): L97.519 - NON-PRS CHRONIC ULCER OTH PRT RIGHT FOOT W UNSP SEVERITY SNOMED Code(s): 347769491 (5) Bacteremia due to methicillin susceptible Staphylococcus aureus (MSSA) Current Visit: Yes Status: Acute Code(s): R78.81 - BACTEREMIA; B95.61 - METHICILLIN SUSCEP STAPH INFCT CAUSING DIS CLASSD ELSWHR SNOMED Code(s): 711024224 Plan: 1patient [facility] with sepsis in this patient who did have fever elevated white count source is right fourth toe diabetic foot infection with right gangrene and underlying osteomyelitis we will need to cover for the polymicrobial estefania associated with diabetic foot infection 2-patient with MSSA bacteremia source likely right diabetic foot infection, blood culture repeated 03/23/2024 and has been negative so far we will order PICC line for placement tomorrow 3patient local culture currently growing MSSA and Finegoldia magna patient is covered with cefazolin and Flagyl hopefully discharge home tomorrow after placement of the PICC line Dictation was produced using [employer] dictation software. please excuse any grammatical, word or spelling errors. Time with Patient: Less than 30
--- NOTE | 2024-03-27 16:42 | P.PN ---
Subjective 58-year-old male with a past medical history significant for diabetes mellitus hypertension hyperlipidemia diabetic foot infection with left below the knee amputation patient presenting to the ER for evaluation of right fourth toe discoloration, patient has been diagnosed with right fourth toe gangrene in this patient who is status post amputation of the right fourth toe completed on 03/22/2024. --Patient is seen and evaluated sitting up in bedside chair; denies any specific complaints Patient discussed with ID and recommending to continue to monitor cultures with plan to proceed with PICC line placement once cultures are negative; patient to be discharged home on IV antibiotics 03/26 His right foot wound with dressing in place, dressing was changed this morning with vascular surgery team No pain No other new complaint Hemoglobin 9.4 Creatinine 1.1 Currently on cefazolin for MSSA in the wound culture 03/27 No new complaint Had bowel movement Objective - Vital Signs Vital signs: Vital Signs Temp 98.1 F 03/27/24 06:48 Pulse 84 03/27/24 06:48 Resp 16 03/27/24 06:48 BP 138/76 03/27/24 06:48 Pulse Ox 97 03/27/24 06:48 FiO2 Intake & Output 03/26/24 03/27/24 03/27/24 18:59 06:59 18:59 Intake Total 530 Balance 530 Intake: Intake, IV Titration 50 Amount ceFAZolin 2 gm In Sodium 50 Chloride 0.9% 50 ml @ 100 mls/hr IVPB Q8H [facility] Rx#: [id number] Oral 480 Other: Voiding Method Toilet # Voids 2 2 # Bowel Movements 1 - Exam GENERAL: The patient is alert and oriented x3, not in any acute distress. Well developed, well nourished. HEENT: Pupils are round and equally reacting to light. EOMI. No scleral icterus. No conjunctival pallor. Normocephalic, atraumatic. No pharyngeal erythema. No thyromegaly. CARDIOVASCULAR: S1 and S2 present. No murmurs, rubs, or gallops. PULMONARY: Chest is clear to auscultation, no wheezing , no crackles. ABDOMEN: Soft, nontender, nondistended, normoactive bowel sounds. No palpable organomegaly. MUSCULOSKELETAL: No joint swelling or deformity. -EXTREMITIES: No cyanosis, clubbing, or pedal edema./Wound with dressing in place, rest of exam is deferred to surgery team NEUROLOGICAL: Gross neurological examination did not reveal any focal deficits. Right foot ulcer SKIN: No rashes. no petechiae. - Labs CBC & Chem 7: 03/26/24 04:18 03/26/24 04:18 Labs: Abnormal Lab Results - Last 24 Hours (Table) 03/26/24 03/26/24 03/26/24 Range/Units 11:37 16:54 20:17 POC Glucose (mg/dL) 174 H 150 H 217 H (70-110) mg/dL 03/27/24 Range/Units 06:08 POC Glucose (mg/dL) 143 H (70-110) mg/dL Microbiology - Last 24 Hours (Table) 03/23/24 05:29 Blood Culture - Preliminary Blood Assessment and Plan Assessment: - acute osteomyelitis of the right foot fourth digit at the metatarsophalangeal joint. IV cefazolin-ID following Amputation right foot [address] Guzman March 22. 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 Being followed by Dr. Guzman at the wound care center -Normocytic anemia, stable and chronic Iron deficiency anemia. Give IV iron. 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 Metformin. Actos. Follow Accu-Cheks. -Full code
[2024-03-27 17:01] LABS: Glucose,Whole Blood 183 mg/dL (70-110)
[2024-03-27 20:50] LABS: Glucose,Whole Blood 178 mg/dL (70-110)
[2024-03-28 06:25] LABS: Glucose,Whole Blood 131 mg/dL (70-110)
[2024-03-28 08:26] VITALS: RESP 15
[2024-03-28 08:33] LABS: Basophils # (A) 0.04 X 10*3/uL (0.00-0.10); Basophils % (A) 0.7 %; Eosinophils # (A) 0.14 X 10*3/uL (0.04-0.35); Eosinophils % (A) 2.4 %; HCT 32.2 % (39.6-50.0); Lymphocytes # (A) 1.85 X 10*3/uL (0.90-5.00); Lymphocytes % (A) 31.8 %; MCH 29.3 pg (27.0-32.0); MCHC 31.1 g/dL (32.0-37.0); MCV 94.4 FL (80.0-97.0); Mean Platelet Volume 10.2 FL (9.5-12.2); Monocytes # (A) 0.49 X 10*3/uL (0.20-1.00); Monocytes % (A) 8.4 %; NRBC Per 100 WBC 0 X 10*3/uL (0.00-0.01); Neutrophils # (A) 3.22 X 10*3/uL (1.80-7.70); Neutrophils % (A) 55.3 %; Platelet Count 456 X 10*3/uL (140-440); RBC 3.41 X 10*6/uL (4.40-5.60); RDW 14.2 % (11.5-14.5); WBC 5.82 X 10*3/uL (4.50-10.00)
[2024-03-28 08:47] LABS: BUN/Creat Ratio 10.36 Ratio (12.00-20.00); Blood Urea Nitrogen 14.5 mg/dL (9.0-27.0); Carbon Dioxide 24.7 mmol/L (21.6-31.8); Chloride 104 mmol/L (96-109); Glucose 140 mg/dL (70-110); Potassium 4.6 mmol/L (3.5-5.5); Sodium 138 mmol/L (135-145)
[2024-03-28 09:07] VITALS: BMI 32.1
[2024-03-28 09:35] LABS: INR 1.11 sec (0.93-1.11); Prothrombin Time 11.9 sec (9.9-11.9)
--- NOTE | 2024-03-28 09:54 | P.PN ---
Subjective 58-year-old male with a past medical history significant for diabetes mellitus hypertension hyperlipidemia diabetic foot infection with left below the knee amputation patient presenting to the ER for evaluation of right fourth toe discoloration, patient has been diagnosed with right fourth toe gangrene in this patient who is status post amputation of the right fourth toe completed on 03/22/2024. --Patient is seen and evaluated sitting up in bedside chair; denies any specific complaints Patient discussed with ID and recommending to continue to monitor cultures with plan to proceed with PICC line placement once cultures are negative; patient to be discharged home on IV antibiotics 03/26 His right foot wound with dressing in place, dressing was changed this morning with vascular surgery team No pain No other new complaint Hemoglobin 9.4 Creatinine 1.1 Currently on cefazolin for MSSA in the wound culture 03/27 No new complaint Had bowel movement 03/28 Wound is healing Patient is having bowel movement He is getting PICC line today Culture reviewed and continued on antibiotics Objective - Vital Signs Vital signs: Vital Signs Temp 97.5 F L 03/28/24 07:10 Pulse 79 03/28/24 07:10 Resp 15 03/28/24 07:10 BP 131/82 03/28/24 07:10 Pulse Ox 99 03/28/24 07:10 FiO2 Intake & Output 03/27/24 03/28/24 03/28/24 18:59 06:59 18:59 Weight 113.398 kg Other: Voiding Method Toilet # Voids 1 3 - Exam GENERAL: The patient is alert and oriented x3, not in any acute distress. Well developed, well nourished. HEENT: Pupils are round and equally reacting to light. EOMI. No scleral icterus. No conjunctival pallor. Normocephalic, atraumatic. No pharyngeal erythema. No thyromegaly. CARDIOVASCULAR: S1 and S2 present. No murmurs, rubs, or gallops. PULMONARY: Chest is clear to auscultation, no wheezing , no crackles. ABDOMEN: Soft, nontender, nondistended, normoactive bowel sounds. No palpable organomegaly. MUSCULOSKELETAL: No joint swelling or deformity. -EXTREMITIES: No cyanosis, clubbing, or pedal edema./Wound with dressing in place, rest of exam is deferred to surgery team NEUROLOGICAL: Gross neurological examination did not reveal any focal deficits. Right foot ulcer SKIN: No rashes. no petechiae. - Labs CBC & Chem 7: 03/28/24 02:56 03/28/24 02:56 Labs: Abnormal Lab Results - Last 24 Hours (Table) 03/27/24 03/27/24 03/27/24 Range/Units 11:44 17:00 20:49 RBC (4.40-5.60) X 10*6/uL Hgb (13.0-17.0) g/dL Hct (39.6-50.0) % MCHC (32.0-37.0) g/dL Plt Count (140-440) X 10*3/uL Immature Gran # (0.00-0.04) X 10*3/uL Est GFR (CKD-EPI) (>=60) BUN/Creatinine Ratio (12.00-20.00) Ratio Glucose (70-110) mg/dL POC Glucose (mg/dL) 188 H 183 H 178 H (70-110) mg/dL 03/28/24 03/28/24 03/28/24 Range/Units 02:56 02:56 06:21 RBC 3.41 L (4.40-5.60) X 10*6/uL Hgb 10.0 L (13.0-17.0) g/dL Hct 32.2 L (39.6-50.0) % MCHC 31.1 L (32.0-37.0) g/dL Plt Count 456 H (140-440) X 10*3/uL Immature Gran # 0.08 H (0.00-0.04) X 10*3/uL Est GFR (CKD-EPI) 58 L (>=60) BUN/Creatinine Ratio 10.36 L (12.00-20.00) Ratio Glucose 140 H (70-110) mg/dL POC Glucose (mg/dL) 131 H (70-110) mg/dL Assessment and Plan Assessment: - acute osteomyelitis of the right foot fourth digit at the metatarsophalangeal joint. IV cefazolin-ID following Amputation right foot [address] Guzman March 22. 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 Being followed by Dr. Guzman at the [facility] -Normocytic anemia, stable and chronic Iron deficiency anemia. Give IV iron. 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 Metformin. Actos. Follow Accu-Cheks. -Full code
[2024-03-28 11:39] LABS: Glucose,Whole Blood 149 mg/dL (70-110)
--- NOTE | 2024-03-28 12:52 | P.PN ---
Progress Note - Text Patient had a toe amputation done for gangrene of the toe patient had a PICC line today and having antibiotic which is a dressing using extra silver is healing patient will go home today will follow-up in the wound clinic on Thursday
[2024-03-28 14:35] VITALS: BP 164/84; PULSE 90; TEMP 97.8
--- NOTE | 2024-04-03 13:45 | P.PN ---
Subjective Progress Note Date: 03/28/24 Principal diagnosis: Reason for follow-up is right diabetic foot infection with gangrene, MSSA bacteremia Patient is a 58-year-old male with a past medical history significant for diabetes mellitus hypertension hyperlipidemia diabetic foot infection with left below the knee amputation patient presenting to the ER for evaluation of right fourth toe discoloration, patient has been diagnosed with right fourth toe gangrene in this patient who is status post amputation of the right fourth toe completed on 03/22/2024. On today's evaluation that 03/28/2024, the patient continues to be afebrile, the patient is on room air and breathing comfortably, the Pt denies having any chest pain or cough, the patient denies having any abdominal pain no vomiting or any diarrhea has been reported by the nursing staff, the patient pain to the right foot is currently controlled. Patient white count is 5.82 creatinine is 1.4 local culture with MSSA Finegoldia negative repeat blood culture have been negative Objective - Vital Signs Vital signs: Vital Signs Temp 97.5 F L 03/28/24 07:10 Pulse 79 03/28/24 07:10 Resp 15 03/28/24 07:10 BP 131/82 03/28/24 07:10 Pulse Ox 99 03/28/24 07:10 FiO2 Intake & Output 03/27/24 03/28/24 03/28/24 18:59 06:59 18:59 Weight 113.398 kg Other: Voiding Method Toilet # Voids 1 3 - Exam GENERAL DESCRIPTION: Middle-age male up in the chair in no distress RESPIRATORY SYSTEM: Unlabored breathing , decreased breath sounds at bases HEART: S1 S2 regular rate and rhythm , ABDOMEN: Soft , no tenderness EXTREMITIES: Right foot is currently dressed - Labs CBC & Chem 7: 03/28/24 02:56 03/28/24 02:56 Labs: Abnormal Lab Results - Last 24 Hours (Table) 03/27/24 03/27/24 03/28/24 Range/Units 17:00 20:49 02:56 RBC 3.41 L (4.40-5.60) X 10*6/uL Hgb 10.0 L (13.0-17.0) g/dL Hct 32.2 L (39.6-50.0) % MCHC 31.1 L (32.0-37.0) g/dL Plt Count 456 H (140-440) X 10*3/uL Immature Gran # 0.08 H (0.00-0.04) X 10*3/uL Est GFR (CKD-EPI) (>=60) BUN/Creatinine Ratio (12.00-20.00) Ratio Glucose (70-110) mg/dL POC Glucose (mg/dL) 183 H 178 H (70-110) mg/dL 03/28/24 03/28/24 03/28/24 Range/Units 02:56 06:21 11:33 RBC (4.40-5.60) X 10*6/uL Hgb (13.0-17.0) g/dL Hct (39.6-50.0) % MCHC (32.0-37.0) g/dL Plt Count (140-440) X 10*3/uL Immature Gran # (0.00-0.04) X 10*3/uL Est GFR (CKD-EPI) 58 L (>=60) BUN/Creatinine Ratio 10.36 L (12.00-20.00) Ratio Glucose 140 H (70-110) mg/dL POC Glucose (mg/dL) 131 H 149 H (70-110) mg/dL Assessment and Plan (1) Gangrene of toe of right foot Status: Acute Code(s): I96 - GANGRENE, NOT ELSEWHERE CLASSIFIED SNOMED Code(s): 34756254181018283 (2) Diabetic foot infection Status: Acute Code(s): E11.628 - TYPE 2 DIABETES MELLITUS WITH OTHER SKIN COMPLICATIONS; L08.9 - LOCAL INFECTION OF THE SKIN AND SUBCUTANEOUS TISSUE, UNSP SNOMED Code(s): 851553189 (3) Osteomyelitis Status: Acute Code(s): M86.9 - OSTEOMYELITIS, UNSPECIFIED SNOMED Code(s): 37988964 (4) Right foot ulcer Status: Acute Code(s): L97.519 - NON-PRS CHRONIC ULCER OTH PRT RIGHT FOOT W UNSP SEVERITY SNOMED Code(s): 967686687 (5) Bacteremia due to methicillin susceptible Staphylococcus aureus (MSSA) Status: Acute Code(s): R78.81 - BACTEREMIA; B95.61 - METHICILLIN SUSCEP STAPH INFCT CAUSING DIS CLASSD ELSR SNOMED Code(s): 645538289 Plan: 1patient [facility] with sepsis in this patient who did have fever elevated white count source is right fourth toe diabetic foot infection with right gangrene and underlying osteomyelitis we will need to cover for the polymicrobial estefania associated with diabetic foot infection 2-patient with MSSA bacteremia source likely right diabetic foot infection, blood culture repeated 03/23/2024 and has been negative patient did have a PICC line this morning 3patient local culture currently growing MSSA and Finegoldia magna, plan is for 5-week course of IV cefazolin Flagyl on discharge to finish a 6-week course of therapy and close outpatient follow-up Dictation was produced using better[employer] dictation software. please excuse any grammatical, word or spelling errors.
== END 2024-03-28 15:49 | disposition home health service (06) | DRG 710 ==
LOC: EC 16:09 → 4SSUR 18:00
PROVIDERS: ADMIT Internal Medicine; ATTEND Internal Medicine
PROC: 0Y6M0ZD Detachment at Right Foot, Partial 4th Ray, Open Approach (ICD-10-PCS; principal; 2024-03-22 12:00)
PROC: 02HV33Z Insertion of Infusion Device into Superior Vena Cava, Percutaneous Approach (ICD-10-PCS; 2024-03-28)
DX: A41.01 Sepsis due to Methicillin susceptible Staphylococcus aureus (principal); D50.9 Iron deficiency anemia, unspecified; D53.9 Nutritional anemia, unspecified; E11.22 Type 2 diabetes mellitus with diabetic chronic kidney disease; E11.52 Type 2 diabetes mellitus with diabetic peripheral angiopathy with gangrene; E11.621 Type 2 diabetes mellitus with foot ulcer; E11.628 Type 2 diabetes mellitus with other skin complications; E11.69 Type 2 diabetes mellitus with other specified complication; E66.9 Obesity, unspecified; E87.20 Acidosis, unspecified; E78.5 Hyperlipidemia, unspecified; I12.9 Hypertensive chronic kidney disease with stage 1 through stage 4 chronic kidney disease, or unspecified chronic kidney disease; L08.9 Local infection of the skin and subcutaneous tissue, unspecified; L97.519 Non-pressure chronic ulcer of other part of right foot with unspecified severity; M86.171 Other acute osteomyelitis, right ankle and foot; N18.9 Chronic kidney disease, unspecified; Z68.32 Body mass index [BMI] 32.0-32.9, adult; Z79.84 Long term (current) use of oral hypoglycemic drugs; Z79.899 Other long term (current) drug therapy; Z89.431 Acquired absence of right foot; Z89.512 Acquired absence of left leg below knee; Z86.14 Personal history of Methicillin resistant Staphylococcus aureus infection; Z79.82 Long term (current) use of aspirin; Z79.85 Long-term (current) use of injectable non-insulin antidiabetic drugs
CPT/HCPCS: 36415; 36573; 76770; 80048; 80053; 81001; 82607; 82728; 82746; 83540; 83550; 83605; 85025; 85610; 85652; 86140; 87040; 87070; 87075; 87077; 87186; 87205; 96361; 96365; 96366; 96367; 99285